=== PATIENT | female | born 1935 | race Caucasian/White ===

== ENCOUNTER 2021-06-09 22:07 | Inpatient (IN) | payer MEDICARE, BC ==
[~2021-06-09] VITALS: Ht 162.6 cm; Wt 91.0 kg
[2021-06-09] MEDS ORDERED: ONDANSETRON PF 4 MG/2 ML VIAL. IVP ONE (22:45)
[2021-06-09] MEDS ORDERED: IOHEXOL 300 MG/ML 75 ML VIAL. IV ONE (22:45)
[2021-06-09] MEDS ORDERED: IV NORMAL SALINE 1,000ML 1,000 ML IV ONE (22:45)
[2021-06-09 23:43] LABS: CALCIUM 8.8 mg/dL (8.5-10.1); CREATININE 1.6 mg/dL (0.6-1.0); GFR 30.4; POTASSIUM 4.1 mmol/L (3.5-5.1)
[2021-06-09] MEDS ORDERED: CONTRAST GIVEN. MC PRN (23:45)
[2021-06-09 23:49] LABS: ALBUMIN 2.9 g/dL (3.4-5.0); ALBUMIN/GLOBULIN RATIO 0.8 (1.0-1.7); MAGNESIUM 1.3 mg/dL (1.8-2.4); TOTAL BILIRUBIN 0.6 mg/dL (0.2-1.0); TOTAL PROTEIN 6.7 g/dL (6.4-8.2)
[2021-06-10] VITALS (7 sets, daily range): BP systolic 116–184; BP diastolic 53–93
[2021-06-10 00:06] LABS: BASO % 0 % (0-3); EOS # 0.1 x10^3/uL (0.0-0.7); EOS % 1 % (0-3); HEMATOCRIT 32.5 % (36.0-47.0); HEMOGLOBIN 10.4 g/dL (12.0-15.5); LYMPH # 0.9 x10^3/uL (1.0-4.8); LYMPH % 7 % (24-48); MEAN CORPUSCULAR HEMOGLOBIN 28 pg (25-35); MEAN CORPUSCULAR HGB CONC 32 g/dL (31-37); MEAN CORPUSCULAR VOLUME 86 fL (79-100); MONO % 8 % (0-9); NEUT # 10.2 x10^3uL (1.8-7.7); NEUT % 84 % (31-73); PLATELET COUNT 244 x10^3/uL (140-400); RED BLOOD COUNT 3.78 x10^6/uL (3.50-5.40); RED CELL DISTRIBUTION WIDTH 17.6 % (11.5-14.5); WHITE BLOOD COUNT 12.3 x10^3/uL (4.0-11.0)
[2021-06-10 00:18] LABS: BILIRUBIN,URINE NEG (NEG); CLARITY,URINE HAZY; COLOR,URINE YELLOW; GLUCOSE,URINE NEG (NEG)
[2021-06-10 00:19] LABS: NITRITE,URINE POS (NEG); RBC,URINE 20-40 /HPF (0-2); UROBILINOGEN,URINE 0.2 mg/dL (0.2 mg/dL); WBC,URINE TNTC /HPF (0-4)
[2021-06-10 00:20] LABS: BACTERIA,URINE MANY /HPF (0-FEW); SQUAMOUS EPITHELIAL CELL,UR FEW /LPF
--- NOTE | 2021-06-10 00:25 | RAD ---
INDICATION: Reason: abdominal pain, N/V/D / Spl. Instructions: / History: . COMPARISON: None. TECHNIQUE: Axial CT images obtained through the abdomen and pelvis without contrast. One or more of the following individualized dose reduction techniques were utilized for this examinat ion: 1. Automated exposure control; 2. Adjustment of the mA and/or kV according to patient size; 3 . Use of iterative reconstruction technique. FINDINGS: Small pleural effusions. Mild patchy opacities at lung bases. Coronary artery calcific atherosclerosis. Enlarged atria. Severe calcific atherosclerosis of abdominal aorta. No intrahepatic bile duct dilation. Gallbladder partially contracted with some high density material within which could be from sludge or stones. No peripancreatic fluid collection. Spleen unremarkable. No left-sided hydronephrosis. There is some air in the urinary bladder. Mild prominence of the right extrarenal pelvis. Definite radiopaque obstructive ureter stone is not s een. Small fat-containing umbilical hernia. Appendix not well seen. There is a couple mildly prominent loops of small bowel but no high-grade transition point to suggest obstruction. Degenerative changes the spine with scoliotic curvature and multilevel central canal and neural cassy inal stenosis. Grade 1 anterolisthesis of L4 on 5. IMPRESSION: * No evidence of bowel obstruction. * Mild prominence of the urinary bladder wall with some air within the lumen of the urinary bladder. Given the mild wall prominence would correlate with symptoms to ensure there is not a pathologic cau se such as mild cystitis. * Severe calcific atherosclerosis. * Small right greater than left pleural effusion with mild adjacent airspace consolidation. Electronically signed by: Aaron Jones MD (06/10/2021 12:22 AM) [id number]
--- NOTE | 2021-06-10 00:44 | PHYS DOC ---
Past History Past Medical History: A-Fib, COPD, Diabetes, Heart Disease, Hypertension, UTI (Ecoli ESBL) Past Surgical History: Hysterectomy Additional Past Surgical Histo: Aortic stent, Left carotid endartectomy, cataract surgery- bilateral, back Smoking: Non-smoker Alcohol Use: None Drug Use: None General Adult EDM: Chief Complaint: NAUSEA/VOMITING/DIARRHEA HPI: HPI: 86-year-old female presents with family with report of generalized weakness and increased confusion which is occurred over the past few days. Patient with history of recent hospital stay in [place] at which time it was found patient to have ESBL E. coli infection. Family reports concern of recurrence. Patient denies any fever. Patient does reports nausea, vomiting, and diarrhea today. Denies trauma. Denies known sick contacts. Denies known exposure to COVID-19. Patient does report receiving vaccinations for COVID-19. Review of Systems: Review of Systems: Constitutional: Denies fever or chills Eyes: Denies redness or eye pain HENT: Denies nasal congestion or sore throat Respiratory: Denies cough or shortness of breath Cardiovascular: Denies chest pain or palpitations GI: Reports abdominal pain, nausea, vomiting, and diarrhea : Denies dysuria or hematuria Musculoskeletal: Denies back pain or joint pain Integument: Denies rash or skin lesions Neurologic: Denies headache, focal weakness or sensory changes; reports confusion and generalized weakness Complete systems were reviewed and found to be within normal limits, except as documented in this note. Current Medications: Current Meds: Current Medications Medications (Trade) Dose Ordered Sig/Aziza Start Time Stop Time Status Last Admin Dose Admin Info (Do NOT chart on this entry -- for MONITORING) 1 each PRN DAILY PRN 06/09/21 23:45 06/10/21 00:14 DC Iohexol (Omnipaque 300 Mg/ml) 75 ml 1X ONCE 06/09/21 22:45 06/09/21 23:32 DC Ondansetron HCl (Zofran) 4 mg 1X ONCE 06/09/21 22:45 06/09/21 23:32 DC Sodium Chloride 1,000 ml @ 1,000 mls/hr 1X ONCE 06/09/21 22:45 06/09/21 23:44 DC 06/09/21 23:00 1,000 MLS/HR Allergies: Allergies: Allergies Coded Allergies Type Severity Reaction Last Updated Verified No Known Drug Allergies 06/09/21 No Physical Exam: PE: Constitutional: Elderly, well nourished, no acute distress, non-toxic appearance HENT: Normocephalic, atraumatic Eyes: Conjunctiva normal, no discharge Neck: Normal range of motion, no tenderness, supple Lungs & Thorax: No respiratory distress, equal chest rise and fall Abdomen: Soft, no tenderness Skin: Warm, dry, no erythema, no rash Extremities: No tenderness, ROM intact, no edema Neurologic: Alert and oriented X 3, no focal deficits noted Psychologic: Affect normal, judgment normal Current Patient Data: Labs: Laboratory Tests Test 06/09/21 22:48 White Blood Count 12.3 x10^3/uL (4.0-11.0) H Red Blood Count 3.78 x10^6/uL (3.50-5.40) Hemoglobin 10.4 g/dL (12.0-15.5) L Hematocrit 32.5 % (36.0-47.0) L Mean Corpuscular Volume 86 fL (79-100) Mean Corpuscular Hemoglobin 28 pg (25-35) Mean Corpuscular Hemoglobin Concent 32 g/dL (31-37) Red Cell Distribution Width 17.6 % (11.5-14.5) H Platelet Count 244 x10^3/uL (140-400) Neutrophils (%) (Auto) 84 % (31-73) H Lymphocytes (%) (Auto) 7 % (24-48) L Monocytes (%) (Auto) 8 % (0-9) Eosinophils (%) (Auto) 1 % (0-3) Basophils (%) (Auto) 0 % (0-3) Neutrophils # (Auto) 10.2 x10^3uL (1.8-7.7) H Lymphocytes # (Auto) 0.9 x10^3/uL (1.0-4.8) L Monocytes # (Auto) 1.0 x10^3/uL (0.0-1.1) Eosinophils # (Auto) 0.1 x10^3/uL (0.0-0.7) Basophils # (Auto) 0.0 x10^3/uL (0.0-0.2) Urine Collection Type Unknown Urine Color Yellow Urine Clarity Hazy Urine pH 6.0 Urine Specific [place] 1.020 Urine Protein 100 mg/dl (NEG-TRACE) Urine Glucose (UA) Neg mg/dL (NEG) Urine Ketones (Stick) Neg mg/dL (NEG) Urine Blood Small (NEG) Urine Nitrite Pos (NEG) Urine Bilirubin Neg (NEG) Urine Urobilinogen Dipstick 0.2 mg/dL (0.2 mg/dL) Urine Leukocyte Esterase Mod (NEG) Urine RBC 20-40 /HPF (0-2) Urine WBC Tntc /HPF (0-4) Urine Squamous Epithelial Cells Few /LPF Urine Bacteria Many /HPF (0-FEW) Sodium Level 140 mmol/L (136-145) Potassium Level 4.1 mmol/L (3.5-5.1) Chloride Level 101 mmol/L (98-107) Carbon Dioxide Level 28 mmol/L (21-32) Anion Gap 11 (6-14) Blood Urea Nitrogen 31 mg/dL (7-20) H Creatinine 1.6 mg/dL (0.6-1.0) H Estimated GFR (Cockcroft-Gault) 30.4 BUN/Creatinine Ratio 19 (6-20) Glucose Level 270 mg/dL (70-99) H Lactic Acid Level 1.7 mmol/L (0.4-2.0) Calcium Level 8.8 mg/dL (8.5-10.1) Magnesium Level 1.3 mg/dL (1.8-2.4) L Total Bilirubin 0.6 mg/dL (0.2-1.0) Aspartate Amino Transferase (AST) 15 U/L (15-37) Alanine Aminotransferase (ALT) 22 U/L (14-59) Alkaline Phosphatase 104 U/L (46-116) Total Protein 6.7 g/dL (6.4-8.2) Albumin 2.9 g/dL (3.4-5.0) L Albumin/Globulin Ratio 0.8 (1.0-1.7) L Vital Signs: Vital Signs Date Time Temp Pulse Resp B/P (MAP) Pulse Ox O2 Delivery O2 Flow Rate FiO2 06/09/21 23:29 99.4 99 20 118/76 90 Room Air EKG: EKG: [] Radiology/Procedures: Radiology/Procedures: PROCEDURE: CT ABDOMEN PELVIS WO CONTRAST INDICATION: Reason: abdominal pain, N/V/D / Spl. Instructions: / History: . COMPARISON: None. TECHNIQUE: Axial CT images obtained through the abdomen and pelvis without contrast. One or more of the following individualized dose reduction techniques were utilized for this examination: 1. Automated exposure control; 2. Adjustment of the mA and/or kV according to patient size; 3. Use of iterative reconstruction technique. FINDINGS: Small pleural effusions. Mild patchy opacities at lung bases. Coronary artery calcific atherosclerosis. Enlarged atria. Severe calcific atherosclerosis of abdominal aorta. No intrahepatic bile duct dilation. Gallbladder partially contracted with some high density material within which could be from sludge or stones. No peripancreatic fluid collection. Spleen unremarkable. No left-sided hydronephrosis. There is some air in the urinary bladder. Mild prominence of the right extrarenal pelvis. Definite radiopaque obstructive ureter stone is not seen. Small fat-containing umbilical hernia. Appendix not well seen. There is a couple mildly prominent loops of small bowel but no high-grade transition point to suggest obstruction. Degenerative changes the spine with scoliotic curvature and multilevel central canal and neural foraminal stenosis. Grade 1 anterolisthesis of L4 on 5. IMPRESSION: * No evidence of bowel obstruction. * Mild prominence of the urinary bladder wall with some air within the lumen of the urinary bladder. Given the mild wall prominence would correlate with symptoms to ensure there is not a pathologic cause such as mild cystitis. * Severe calcific atherosclerosis. * Small right greater than left pleural effusion with mild adjacent airspace consolidation. Electronically signed by: Aaron Jones MD (06/10/2021 12:22 AM) DESKTOP- [id number] Heart Score: C/O Chest Pain: N/A Course & Med Decision Making: Course & Med Decision Making Pertinent Labs and Imaging studies reviewed. (See chart for details) Patient presents with her daughter with report of some generalized weakness with concern for possible recurrence of UTI. Patient with history of recent admission for E. coli ESBL at outside facility. Patient's family report symptoms appear similar. Patient is complaining of some abdominal discomfort. Afebrile. Labs obtained and posted to chart. UA with signs of infection. Hypomagnesemia addressed. CT abdomen/pelvis without acute finding. Empiric antibiotic initiated presuming recurrence of ESBL E. coli.. Patient requiring admission for further evaluation and treatment. Discussed with Dr. Chapa (hospitalist) who is in agreement with admission. Discussed findings and plan with patient, who acknowledges understanding and agreement. Dragjosh Disclaimer: Dragjosh Disclaimer: This electronic medical record was generated, in whole or in part, using a voice recognition dictation system. Departure Departure: Impression: Primary Impression: Complicated UTI (urinary tract infection) Additional Impressions: Nausea vomiting and diarrhea History of ESBL E. coli infection Hypomagnesemia Disposition: 09 ADMITTED INPATIENT Admitting Physician: Kuldeep Chapa Condition: STABLE Referrals: ALEXANDER NGUYEN (PCP) MAGNUS JAMES DO Jun 10, 2021 00:44
[2021-06-10] MEDS ORDERED: ERTAPENEM 1 GM in IV NORMAL SALINE 50ML 50 ML IV ONE (00:45)
[2021-06-10] MEDS ORDERED: DEXTROSE 50% 25 GM / 50ML DISP.SYRIN. IV PRN (01:15)
[2021-06-10] MEDS ORDERED: ONDANSETRON PF 4 MG/2 ML VIAL. IVP PRN (01:15)
[2021-06-10] MEDS ORDERED: MAGNESIUM SULFATE 2GM 50 ML IV ONE (01:30)
[2021-06-10] MEDS ORDERED: MEROPENEM 500 MG VIAL IV ONE (01:43)
[2021-06-10] MEDS ORDERED: IV NORMAL SALINE 50ML 50 ML ONE (01:43)
[2021-06-10] MEDS: MEROPENEM 500 MG in IV NORMAL SALINE 50ML 50 ML IV SCH ×3 (02:30→17:07)
[2021-06-10] MEDS: IV NORMAL SALINE 1,000ML 1,000 ML IV SCH ×3 (04:27→17:07)
[2021-06-10] MEDS ORDERED: POTA10TA5 PO (05:11)
[2021-06-10] MEDS ORDERED: FERR325T14 PO (05:11)
[2021-06-10] MEDS ORDERED: GABA-585 PO (05:11)
[2021-06-10] MEDS ORDERED: AMIO200T6 PO (05:11)
[2021-06-10] MEDS ORDERED: ATOR20TA58 PO (05:11)
[2021-06-10] MEDS ORDERED: APIX2.5T PO (05:11)
[2021-06-10] MEDS ORDERED: CLOP75TA PO (05:11)
[2021-06-10] MEDS ORDERED: CALC0.2530 PO (05:11)
[2021-06-10] MEDS ORDERED: HYDR-2145 PO (05:11)
[2021-06-10] MEDS ORDERED: METO-247 PO (05:11)
[2021-06-10] MEDS ORDERED: INSU100V37 SQ (05:11)
[2021-06-10] MEDS ORDERED: OXYB15TA18 PO (05:11)
[2021-06-10] MEDS ORDERED: PANT40TA6 PO (05:11)
[2021-06-10] MEDS ORDERED: ALLO100T PO (05:11)
[2021-06-10] MEDS ORDERED: LEVO50CA3 PO (05:11)
--- NOTE | 2021-06-10 05:39 | NUR ---
The patient, BRENDON PELAEZ, 86 y/o, F admitted by BETZAIDA HELTON MD, was given written information regarding hospital policies, unit procedures and contact persons. Valuables were checked and vital signs obtained. PT accompanied by daughter, Brigitte, who provided additional information as PT was very tired and falling asleep. Reviewed with PT and daughter her PMH, PSH, SH, FH and medications. PT oriented to unit.
--- NOTE | 2021-06-10 06:28 | RAD ---
INDICATION: Reason: cough / Spl. Instructions: / History: COMPARISON: None. FINDINGS: Single view of chest obtained. Enlarged cardiac silhouette with calcific atherosclerosis. Mild haziness at the lung bases. Mild interstitial opacities. IMPRESSION: * Mild haziness at lung bases which can be seen with atelectasis or infiltrate. There is also some m ild interstitial opacities bilaterally which can be seen with mild pulmonary vascular congestion or m ild interstitial infiltrate. * Calcific atherosclerosis. Electronically signed by: Aaron Jones MD (06/10/2021 6:26 AM) [id number]
[2021-06-10] MEDS: LACTOBACILLUS RHAMNOSUS GG 1 CAPSULE. PO SCH ×2 (08:40→21:33)
[2021-06-10] MEDS: INSULIN LISPRO 300 UNITS/3 ML VIAL. SQ SCH ×3 (08:46→17:09)
--- NOTE | 2021-06-10 12:17 | NUR ---
NURSING NOTE PT UNABLE TO VOID. BLADDER SCAN REVEALED LESS THAN 167 MLS. WILL CONTINUE TO MONITOR. HARSHIL VALENTIN.
--- NOTE | 2021-06-10 15:55 | NUR ---
NURSING NOTE BLADDER SCAN RECHECK 229. PT ABLE TO VOID 80 MLS. WILL CONTINUE TO MONITOR. HARSHIL VALENTIN.
--- NOTE | 2021-06-10 17:37 | NUR ---
Nursing Note Consult Cardiology called for consult. this nurse spoke with nguyễn
--- NOTE | 2021-06-10 18:29 | NUR ---
Nursing Note Dr. Pimentel spoke with pt, daughter, and son (over the phone). Pt received a shower and will continue with antibiotic therapy. Daughter present all day through visiting hours (10-6).
--- NOTE | 2021-06-10 19:30 | HP ---
ADMIT DATE: 06/10/2021 HISTORY OF PRESENT ILLNESS: The patient is an 86-year-old female patient, a resident at [facility], who was brought by her daughter to the Emergency Room with a complaint not generally feeling well, more confused, weak. Her blood sugar was elevated and she started vomiting. Symptoms very similar to her recent urinary tract infection for which she was seen at [place] and from there she was admitted to [facility] where she was eventually diagnosed with ESBL E. coli that was resistant to multiple antibiotics and was treated with meropenem. She was living at [facility] and was moved here recently to be near her family. She was evaluated in the Emergency Room. Her lab work showed she has leukocytosis with a white cell count of 12,300. Her chemistry showed her serum creatinine was 1.6. She has also hypomagnesemia with a serum magnesium only 1.3. Her urinalysis showed that the urine was hazy with a pH of 6, specific gravity of 1.020. There is small amount of protein. The urine was negative for glucose, ketones, small amount of blood, positive nitrite, has moderate amount of leukocyte esterase, 20-40 rbc's, too numerous to count wbc's and many bacteria and was admitted with the UTI. She has a history of ESBL E. coli infection, has hypomagnesemia and chronic kidney disease. PAST MEDICAL HISTORY: Significant for recurrent UTIs, hypertension, type 2 diabetes mellitus, hyperlipidemia, abdominal aortic aneurysm, atrial fibrillation, chronic kidney disease and hypothyroidism. PAST SURGICAL HISTORY: Significant for aortic stent placement, left carotid endarterectomy, bilateral cataract extraction, total abdominal hysterectomy, bilateral salpingo-oophorectomy, has had a screening colonoscopy and laminectomy. ALLERGIES: She has no known drug allergies. MEDICATIONS: She is currently on the following medications: She is on ferrous sulfate 325 mg once a day, apixaban 2.5 mg twice a day, Plavix 75 mg once a day, amiodarone 200 mg once a day, atorvastatin calcium 20 mg once a day, metoprolol succinate 100 mg once a day, gabapentin 100 mg twice a day. She is on potassium chloride 10 mEq 1 twice a day, hydrochlorothiazide 25 mg once a day, Protonix 40 mg once a day. She is on Tresiba 6 units twice a day, levothyroxine 50 mcg once a day, oxybutynin chloride 15 mg twice a day and calcitriol 0.25 mcg once a day, allopurinol 100 mg once a day. REVIEW OF SYSTEMS: The patient denied any blurring of vision. She has bilateral cataract extraction, but denied any glaucoma or macular degeneration. Denied any earache, tinnitus or sensorineural deafness. Denied any nosebleed, stuffy nose or postnasal drip. Denied any sore throat, sore tongue, toothache, hoarseness of voice or difficulty swallowing. Did have some nausea and vomiting. Denied any diarrhea or constipation. Denied any hematemesis, melena or hematochezia. Denied any dysuria, frequency or hematuria. Denied any chest pain, shortness of breath except on exertion. Denied any orthopnea or paroxysmal nocturnal dyspnea. Denied any cough, phlegm or hemoptysis. PHYSICAL EXAMINATION: GENERAL: On arrival to the Emergency Room, the patient looked somewhat pale, but not jaundice, cyanosed, no lymphadenopathy, no thyromegaly, no jugular venous distention. Mild bilateral lower limb edema. VITAL SIGNS: Her heart rate was 90, blood pressure is 184/93, temperature was 98.1, respiratory rate 20, and oxygen saturation was 94% on 2 liters of oxygen. HEAD, EYES, EARS, NOSE, AND THROAT: Normocephalic, atraumatic. NECK: Supple. HEART: Showed normal first and second heart sounds, no gallop, rub or murmur. CHEST: Clear to auscultation, no crepitation or rhonchi. ABDOMEN: Distended, soft, nontender. NEUROLOGIC: She is awake, alert, responding appropriately. Cranial nerves intact. She moves extremities without difficulty. She ambulates with a walker. LABORATORY DATA: Her lab work on arrival showed a white cell count 12,300, hemoglobin 10.4, hematocrit 32.5, MCV 86 and platelet count 244,000. Her serum sodium was 140, potassium 4.1, chloride 101, bicarbonate 28, anion gap of 11, BUN 31, creatinine 1.6. Estimated GFR was 30 mL per minute. Her glucose was 170. Lactic acid is 1.7, calcium was 8.8, magnesium was 1.3. Total bilirubin, AST, ALT, alkaline phosphatase were normal. Total protein 6.7, albumin was 2.9. Her urinalysis showed the urine was yellow, hazy with a pH of 6, specific gravity of 1.020. There was moderate amount of protein. The urine was negative for glucose and ketones, small amount of blood, positive for nitrite, moderate amount of leukocyte esterase, 20-40 rbc's and too numerous to count wbc's and many bacteria. She did have a chest x-ray which showed that the patient has mild haziness at the lung bases, which can be seen with atelectasis or infiltrate. There is also some mild interstitial opacities bilaterally, which can be seen with mild pulmonary vascular congestion, mild interstitial infiltrate. She has calcific atherosclerosis. CT scan of the abdomen and pelvis without contrast showed that the patient has no evidence of bowel obstruction, mild prominence of the urinary bladder wall with some air within the lumen of the urinary bladder, given the mild wall prominence which correlate with symptoms to ensure there is not a pathological cause such as mild cystitis, severe calcific atherosclerosis, small right greater than left pleural effusion with mild adjacent airspace consolidation. ASSESSMENT: 1. The patient was admitted with a complicated urinary tract infection as well as hypomagnesemia. Her most recent urinary tract infection treated at [place] showed a growth of extended spectrum beta-lactamase Escherichia coli. She has multiple other medical problems including: A. Hypertension. B. Type 2 diabetes mellitus. C. Hyperlipidemia. D. Atrial fibrillation. E. Chronic kidney disease. F. Hypothyroidism. PLAN: My plan is to continue with all her current medication. I will consult our boiler house inspector. Her heart rate seems to be well controlled and I will repeat all her lab work again and she might need to be on IV Lasix as her oxygen is borderline around 89-[address] DANITA [address]: Jeremiah TID: [id number]
[2021-06-10] MEDS ORDERED: ATORVASTATIN CALCIUM 20 MG TABLET PO SCH (21:00)
[2021-06-10] MEDS: MAGNESIUM OXIDE 400 MG TABLET PO SCH (21:00)
[2021-06-10] MEDS: OXYBUTYNIN CHLORIDE 5 MG TABLET PO SCH (21:33)
[2021-06-10] MEDS: GABAPENTIN 100 MG CAPSULE. PO SCH (21:33)
[2021-06-10] MEDS: CLOPIDOGREL BISULFATE 75 MG TABLET PO SCH (21:33)
[2021-06-10] MEDS: APIXABAN 2.5 MG TABLET PO SCH (21:34)
[2021-06-10] MEDS: POTASSIUM CHLORIDE 10 MEQ TABLET.ER. PO SCH (21:34)
[2021-06-10] MEDS: INSULIN GLARGINE SYRINGE. SQ SCH (21:41)
[2021-06-11] MEDS: MEROPENEM 500 MG in IV NORMAL SALINE 50ML 50 ML IV SCH ×3 (01:00→17:50)
--- NOTE | 2021-06-11 02:26 | NUR ---
Called Dr. Pimentel about patient Heart rate sustaining at [address] Pimentel recommended 250mcg of Digoxin IV. Order added and dose administered.
[2021-06-11] MEDS ORDERED: DIGOXIN IV 500 MCG/2 ML AMPUL. IV ONE (03:00)
[2021-06-11 06:02] VITALS: BP 142/72
[2021-06-11] MEDS: LEVOTHYROXINE 50 MCG TABLET PO SCH (06:24)
[2021-06-11 07:14] LABS: HEMATOCRIT 31.7 % (36.0-47.0); HEMOGLOBIN 9.9 g/dL (12.0-15.5); RED BLOOD COUNT 3.57 x10^6/uL (3.50-5.40); RED CELL DISTRIBUTION WIDTH 18.4 % (11.5-14.5); WHITE BLOOD COUNT 10.7 x10^3/uL (4.0-11.0)
[2021-06-11 07:37] LABS: ALBUMIN 2.6 g/dL (3.4-5.0); ALBUMIN/GLOBULIN RATIO 0.7 (1.0-1.7); CALCIUM 8.2 mg/dL (8.5-10.1); CREATININE 1.8 mg/dL (0.6-1.0); GFR 26.6; POTASSIUM 4.8 mmol/L (3.5-5.1); TOTAL PROTEIN 6.4 g/dL (6.4-8.2)
--- NOTE | 2021-06-11 08:28 | PDOC2 ---
CARDIAC CONSULT DATE OF CONSULT DOS: DATE: 06/11/21 TIME: 08:21 REASON FOR CONSULT Reason for Consult AFIB, CHF REFERRING PHYSICIAN Referring Physician Dr. Pimentel SOURCE Source: Chart review, Patient HPI History of Present Illness This is an 86 yo female who presented secondary to altered mental status, weakness, nausea/vomiting, and elevated blood sugar. Daughter was concerned she has another UTI and symptoms were similar with previous UTI. UA upon arrival + for UTI. Has a history of AFIB. Went into RVR overnight, which prompted this consult. Patient normally on metoprolol for rate control, but did not received this yesterday. She denies any chest pain, palpitations, dizziness, diaphoresis, or SOA. [employer] in [employer] [place] in [place], [place]. Recently moved here to be closer to family. Has appointment next week to establish care with daughters gate agent. PAST MEDICAL HISTORY Cardiovascular: AFIB, CHF, HTN, hyperipidemia, Other (carotid arterial disease, aortic aneurysm ) Pulmonary: COPD, Other (BHARATI) CENTRAL NERVOUS SYSTEM: Periperal neuropathy GI: GERD Heme/Onc: Anemia NOS Psych: Anxiety Musculoskeletal: Osteoarthritis Rheumatologic: Gout Renal/: Chronic renal insuff, UTI Endocrine: Hypothyroidism PAST SURGICAL HISTORY Past Surgical History Significant for aortic stent placement, left carotid endarterectomy, bilateral cataract extraction, hysterectomy, and laminectomy. FAMILY HISTORY Family History: Heart Disease, Hypertension SOCIAL HISTORY Smoke: No ALCOHOL: none Drugs: None Lives: Residential CURRENT MEDICATIONS Current Medications Current Medications Sodium Chloride 1,000 ml @ 1,000 mls/hr 1X ONCE IV Last administered on 06/09/21at 23:00; Start 06/09/21 at 22:45; Stop 06/09/21 at 23:44; Status DC Ondansetron HCl (Zofran) 4 mg 1X ONCE IVP ; Start 06/09/21 at 22:45; Stop 06/09/21 at 23:32; Status DC Iohexol (Omnipaque 300 Mg/ml) 75 ml 1X ONCE IV ; Start 06/09/21 at 22:45; Stop 06/09/21 at 23:32; Status DC Info (Do NOT chart on this entry -- for MONITORING) 1 each PRN DAILY PRN MC SEE COMMENTS; Start 06/09/21 at 23:45; Stop 06/10/21 at 00:14; Status DC Ertapenem 1 gm/ Sodium Chloride 50 ml @ 100 mls/hr 1X ONCE IV ; Start 06/10/21 at 00:45; Stop 06/10/21 at 01:14; Status UNV Meropenem 500 mg/ Sodium Chloride 50 ml @ 100 mls/hr Q8HRS IV Last administere d on 06/10/21at 08:41; Start 06/10/21 at 01:00; Stop 06/10/21 at 14:20; Status DC Lorazepam (Ativan Inj) 0.5 mg 1X ONCE IVP Last administered on 06/10/21at 01:14; Start 06/10/21 at 01:00; Stop 06/10/21 at 01:01; Status DC Ondansetron HCl (Zofran) 4 mg PRN Q4HRS PRN IVP NAUSEA/VOMITING Last administered on 06/10/21at 05:50; Start 06/10/21 at 01:15; Stop 06/11/21 at 01:14; Status DC Sodium Chloride 1,000 ml @ 100 mls/hr Q10H IV Last administered on 06/10/21at 17:07; Start 06/10/21 at 01:15; Stop 06/11/21 at 01:14; Status DC Insulin Human Lispro (HumaLOG) 0-5 UNITS TIDWMEALS SQ Last administered on 06/10/21at 17:09; Start 06/10/21 at 08:00 Dextrose (Dextrose 50%-Water Syringe) 12.5 gm PRN Q15MIN PRN IV SEE COMMENTS; Start 06/10/21 at 01:15 Magnesium Sulfate 50 ml @ 25 mls/hr 1X ONCE IV Last administered on 06/10/21at 04:27; Start 06/10/21 at 01:30; Stop 06/10/21 at 03:29; Status DC Sodium Chloride 50 ml @ As Directed STK-MED ONCE .ROUTE ; Start 06/10/21 at 01:43; Stop 06/10/21 at 01:43; Status DC Meropenem (Merrem) 500 mg STK-MED ONCE IV ; Start 06/10/21 at 01:43; Stop 06/10/21 at 01:43; Status DC Lactobacillus Rhamnosus (Culturelle) 1 cap BID PO Last administered on 06/10/21at 21:33; Start 06/10/21 at 09:00 Meropenem 500 mg/ Sodium Chloride 50 ml @ 100 mls/hr Q8H IV Last administered on 06/11/21at 01:00; Start 06/10/21 at 17:00 Magnesium Oxide (Magnesium Oxide) 400 mg BID PO Last administered on 06/10/21at 21:00; Start 06/10/21 at 21:00 Allopurinol (Zyloprim) 100 mg DAILY PO ; Start 06/11/21 at 09:00 Amiodarone HCl (Cordarone) 200 mg DAILY PO ; Start 06/11/21 at 09:00 Apixaban (Eliquis) 2.5 mg BID PO Last administered on 06/10/21 21:34; Start 06/10/21 at 21:00 Atorvastatin Calcium (Lipitor) 20 mg QHS PO Last administered on 06/10/21at 21:33; Start 06/10/21 at 21:00 Calcitriol (Rocaltrol) 0.25 mcg DAILY PO ; Start 06/11/21 at 09:00 Clopidogrel Bisulfate (Plavix) 75 mg HS PO Last administered on 06/10/21at 21:33; Start 06/10/21 at 21:00 Ferrous Sulfate (Feosol) 325 mg DAILY PO ; Start 06/11/21 at 09:00 Gabapentin (Neurontin) 100 mg BID PO Last administered on 06/10/21at 21:33; Start 06/10/21 at 21:00 Hydrochlorothiazide (Hydrodiuril) 25 mg DAILY PO ; Start 06/11/21 at 09:00 Insulin Glargine (Lantus Syringe) 6 unit BID SQ Last administered on 06/10/21at 21:41; Start 06/10/21 at 21:00 Levothyroxine Sodium (Synthroid) 50 mcg DAILY06 PO Last administered on 06/11/21at 06:24; Start 06/11/21 at 06:00 Metoprolol Succinate (Toprol Xl) 100 mg DAILY PO ; Start 06/11/21 at 09:00 Oxybutynin Chloride (Ditropan) 5 mg QID PO Last administered on 06/10/21 21:33; Start 06/10/21 at 21:00 Potassium Chloride (Klor-Con) 10 meq BID PO Last administered on 7/14/21at 21:34; Start 06/10/21 at 21:00 Digoxin (Lanoxin) 250 mcg 1X ONCE IV Last administered on 06/11/21at 03:00; Start 06/11/21 at 03:00; Stop 06/11/21 at 03:01; Status DC Active Scripts Active Reported Tresiba (Insulin Degludec) 100 Unit/1 Ml Vial 6 Unit SQ BID Klor-Con 10 (Potassium Chloride) 10 Meq Tablet.er 1 Tab PO BID 30 Days Pantoprazole Sodium 40 Mg Tablet.dr 1 Tab PO DAILY Oxybutynin Chloride Er (Oxybutynin Chloride) 15 Mg Tab.er.24 1 Tab PO BID Metoprolol Succinate ( Xl ) (Metoprolol Succinate) 100 Mg Tab.er.24h 1 Tab PO DAILY Levothyroxine (Levothyroxine Sodium) 50 Mcg Capsule 50 Mcg PO DAILY06 Hydrochlorothiazide Tablet (Hydrochlorothiazide) 25 Mg Tablet 25 Mg PO DAILY Gabapentin (Gabapentin) 100 Mg Capsule 100 Mg PO BID Ferrous Sulfate 325 Mg Tablet 1 Tab PO DAILY Eliquis (Apixaban) 2.5 Mg Tablet 2.5 Mg PO BID Clopidogrel (Clopidogrel Bisulfate) 75 Mg Tablet 1 Tab PO HS Calcitriol 0.25 Mcg Capsule 1 Cap PO DAILY Atorvastatin Calcium 20 Mg Tablet 20 Mg PO QHS Amiodarone Hcl 200 Mg Tablet 1 Tab PO DAILY Allopurinol 100 Mg Tablet 1 Tab PO DAILY ALLERGIES Allergies: Coded Allergies: No Known Drug Allergies (Unverified , 06/09/21) ROS Review of Systems 14 point ROS conducted with pertinent positives noted above in HPI PHYSICAL EXAM General: Alert, Oriented X3, Cooperative, No acute distress HEENT: Atraumatic Lungs: Clear to auscultation Heart: Other Abdomen: Soft, Other (obese ) Extremities: No edema, Normal pulses Skin: No breakdown Neuro: Normal speech, Sensation intact Psych/Mental Status: Mental status NL, Mood NL MUSCULOSKELETAL: Osteoarthritic changes both hands VITALS Vital Signs Vital Signs Date Time Temp Pulse Resp B/P (MAP) Pulse Ox O2 Delivery O2 Flow Rate FiO2 06/11/21 06:02 98.5 130 18 142/72 (95) 90 Room Air 06/10/21 14:59 1.0 LABS LABS Laboratory Tests Test 06/09/21 22:48 06/10/21 07:41 06/10/21 11:28 06/10/21 16:28 White Blood Count 12.3 x10^3/uL (4.0-11.0) Red Blood Count 3.78 x10^6/uL (3.50-5.40) Hemoglobin 10.4 g/dL (12.0-15.5) Hematocrit 32.5 % (36.0-47.0) Mean Corpuscular Volume 86 fL (79-100) Mean Corpuscular Hemoglobin 28 pg (25-35) Mean Corpuscular Hemoglobin Concent 32 g/dL (31-37) Red Cell Distribution Width 17.6 % (11.5-14.5) Platelet Count 244 x10^3/uL (140-400) Neutrophils (%) (Auto) 84 % (31-73) Lymphocytes (%) (Auto) 7 % (24-48) Monocytes (%) (Auto) 8 % (0-9) Eosinophils (%) (Auto) 1 % (0-3) Basophils (%) (Auto) 0 % (0-3) Neutrophils # (Auto) 10.2 x10^3uL (1.8-7.7) Lymphocytes # (Auto) 0.9 x10^3/uL (1.0-4.8) Monocytes # (Auto) 1.0 x10^3/uL (0.0-1.1) Eosinophils # (Auto) 0.1 x10^3/uL (0.0-0.7) Basophils # (Auto) 0.0 x10^3/uL (0.0-0.2) Urine Collection Type Unknown Urine Color Yellow Urine Clarity Hazy Urine pH 6.0 Urine Specific [place] 1.020 Urine Protein 100 mg/dl (NEG-TRACE) Urine Glucose (UA) Neg mg/dL (NEG) Urine Ketones (Stick) Neg mg/dL (NEG) Urine Blood Small (NEG) Urine Nitrite Pos (NEG) Urine Bilirubin Neg (NEG) Urine Urobilinogen Dipstick 0.2 mg/dL (0.2 mg/dL) Urine Leukocyte Esterase Mod (NEG) Urine RBC 20-40 /HPF (0-2) Urine WBC Tntc /HPF (0-4) Urine Squamous Epithelial Cells Few /LPF Urine Bacteria Many /HPF (0-FEW) Sodium Level 140 mmol/L (136-145) Potassium Level 4.1 mmol/L (3.5-5.1) Chloride Level 101 mmol/L (98-107) Carbon Dioxide Level 28 mmol/L (21-32) Anion Gap 11 (6-14) Blood Urea Nitrogen 31 mg/dL (7-20) Creatinine 1.6 mg/dL (0.6-1.0) Estimated GFR (Cockcroft-Gault) 30.4 BUN/Creatinine Ratio 19 (6-20) Glucose Level 270 mg/dL (70-99) Lactic Acid Level 1.7 mmol/L (0.4-2.0) Calcium Level 8.8 mg/dL (8.5-10.1) Magnesium Level 1.3 mg/dL (1.8-2.4) Total Bilirubin 0.6 mg/dL (0.2-1.0) Aspartate Amino Transf (AST/SGOT) 15 U/L (15-37) Alanine Aminotransferase (ALT/SGPT) 22 U/L (14-59) Alkaline Phosphatase 104 U/L (46-116) Total Protein 6.7 g/dL (6.4-8.2) Albumin 2.9 g/dL (3.4-5.0) Albumin/Globulin Ratio 0.8 (1.0-1.7) Glucose (Fingerstick) 232 mg/dL (70-99) 198 mg/dL (70-99) 210 mg/dL (70-99) Test 06/10/21 20:10 06/11/21 06:58 06/11/21 07:44 Glucose (Fingerstick) 181 mg/dL (70-99) 225 mg/dL (70-99) White Blood Count 10.7 x10^3/uL (4.0-11.0) Red Blood Count 3.57 x10^6/uL (3.50-5.40) Hemoglobin 9.9 g/dL (12.0-15.5) Hematocrit 31.7 % (36.0-47.0) Mean Corpuscular Volume 89 fL (79-100) Mean Corpuscular Hemoglobin 28 pg (25-35) Mean Corpuscular Hemoglobin Concent 31 g/dL (31-37) Red Cell Distribution Width 18.4 % (11.5-14.5) Platelet Count 231 x10^3/uL (140-400) Sodium Level 139 mmol/L (136-145) Potassium Level 4.8 mmol/L (3.5-5.1) Chloride Level 102 mmol/L (98-107) Carbon Dioxide Level 29 mmol/L (21-32) Anion Gap 8 (6-14) Blood Urea Nitrogen 35 mg/dL (7-20) Creatinine 1.8 mg/dL (0.6-1.0) Estimated GFR (Cockcroft-Gault) 26.6 BUN/Creatinine Ratio 19 (6-20) Glucose Level 229 mg/dL (70-99) Calcium Level 8.2 mg/dL (8.5-10.1) Magnesium Level 2.1 mg/dL (1.8-2.4) Total Bilirubin 1.0 mg/dL (0.2-1.0) Aspartate Amino Transf (AST/SGOT) 364 U/L (15-37) Alanine Aminotransferase (ALT/SGPT) 283 U/L (14-59) Alkaline Phosphatase 356 U/L (46-116) PT-Pkw-Y-Type Natriuretic Peptide 8444 pg/mL (0-449) Total Protein 6.4 g/dL (6.4-8.2) Albumin 2.6 g/dL (3.4-5.0) Albumin/Globulin Ratio 0.7 (1.0-1.7) ASSESSMENT/PLAN Assessment/Plan 1. Recurrent, complicated UTI 2. AFIB; suspect paroxysmal as patient is on Amiodarone therapy. in AFIB RVR overnight as she missed dose of metoprolol yesterday. Rate now controlled, but remains in AFIB 3. Acute on chronic probably diastolic CHF 4. Hypertension; controlled 5. Hyperlipidemia; statin 6. Diabetes, II 7. THELMA on CKD 8. Hypothyroidism 9. Transaminitis Recommendations Resume metoprolol for rate control Continue Amiodarone for now Eliquis for stroke prophylaxis Will give Lasix IV x1 Awaiting OSH records from [place]. Continue secondary prevention Can hold statin with elevated LFTs Ongoing antibiotic therapy for UTI Supportive care ELEANOR HUDSON APRN Jun 11, 2021 08:28
[2021-06-11] MEDS: MAGNESIUM OXIDE 400 MG TABLET PO SCH ×2 (09:00→21:00)
[2021-06-11] MEDS: INSULIN LISPRO 300 UNITS/3 ML VIAL. SQ SCH ×3 (09:53→17:00)
[2021-06-11] MEDS: hydroCHLOROthiazide 25 MG TABLET. PO SCH (09:53)
[2021-06-11] MEDS: AMIODARONE HCL 200 MG TABLET. PO SCH (09:54)
[2021-06-11] MEDS: LACTOBACILLUS RHAMNOSUS GG 1 CAPSULE. PO SCH ×2 (09:54→21:43)
[2021-06-11] MEDS: POTASSIUM CHLORIDE 10 MEQ TABLET.ER. PO SCH ×2 (09:54→21:44)
[2021-06-11] MEDS: OXYBUTYNIN CHLORIDE 5 MG TABLET PO SCH ×4 (09:54→21:44)
[2021-06-11] MEDS: FERROUS SULFATE 325 MG TABLET. PO SCH (09:54)
[2021-06-11] MEDS: APIXABAN 2.5 MG TABLET PO SCH ×2 (09:54→21:44)
[2021-06-11] MEDS: ALLOPURINOL 100 MG TABLET. PO SCH (09:54)
[2021-06-11] MEDS: GABAPENTIN 100 MG CAPSULE. PO SCH ×2 (09:54→21:44)
[2021-06-11] MEDS: CALCITRIOL 0.25 MCG CAPSULE PO SCH (09:56)
[2021-06-11] MEDS: METOPROLOL SUCC 24HR ER 50 MG TAB.ER.24H. PO SCH (09:57)
[2021-06-11] MEDS ORDERED: FUROSEMIDE 20 MG/2 ML VIAL IVP ONE (10:00)
[2021-06-11] MEDS: INSULIN GLARGINE SYRINGE. SQ SCH ×2 (10:00→21:00)
[2021-06-11] MEDS ORDERED: FUROSEMIDE 40 MG/4 ML VIAL IVP ONE (10:10)
[2021-06-11 12:00] VITALS: BP 113/72
[2021-06-11 15:17] VITALS: BP 135/84
[2021-06-11 19:51] VITALS: BP 124/53
[2021-06-11] MEDS: CLOPIDOGREL BISULFATE 75 MG TABLET PO SCH (21:44)
[2021-06-11 23:49] VITALS: BP 132/63
[2021-06-12] MEDS: MEROPENEM 500 MG in IV NORMAL SALINE 50ML 50 ML IV SCH ×3 (01:00→17:37)
--- NOTE | 2021-06-12 01:11 | PN ---
DATE: 06/11/2021 SUBJECTIVE: The patient is sitting in her chair snoozing after eating her lunch. On questioning her, she denied any complaint. Nursing staff did not voice any concern except that the patient went into atrial fibrillation with rapid ventricular response for which she was given digoxin 250 mcg IV once. When I saw her this afternoon, her heart rate was much better controlled. PHYSICAL EXAMINATION: GENERAL: When I examined her, she was pale. No jaundice, cyanosis or thyromegaly. No jugular venous distention. No lower limb edema. VITAL SIGNS: Her heart rate was 80, blood pressure was 113/72, temperature was 98.9, respiratory rate was 20 and oxygen saturation was 91% on 1 L of oxygen. HEAD, EYES, EARS, NOSE, AND THROAT: Normocephalic, atraumatic. NECK: Supple. HEART: Showed normal first and second heart sounds, no gallop, rub or murmur. CHEST: Showed central trachea, equal bilateral expansion, air entry with bilateral basal crepitation. I could not appreciate any rhonchi. ABDOMEN: Distended, soft, nontender. NEUROLOGIC: She was sleepy, but arousable. All cranial nerves intact. She moves extremities without difficulty. EXTREMITIES: Examination of the extremities showed no clubbing, cyanosis, but mild bilateral lower extremity edema. Her intake and output were incompletely recorded. LABORATORY DATA: Her lab work this morning showed a white cell count of 10,700, hemoglobin 10, hematocrit 32, MCV 89 and platelet count 231,000. Her chemistry showed that her serum sodium was 139, potassium 4.8, chloride 102, bicarbonate 29, anion gap of 8, BUN 35, creatinine 1.8. Estimated GFR was 27 mL per minute. Her glucose was __, calcium was 8.2, magnesium was 2.1. Total bilirubin is normal; however, AST, ALT, alkaline phosphatase dramatically risen and her beta natriuretic peptide was 8444. Her total protein was 6.4, albumin was 2.6. Urinalysis showed too numerous to count wbc's and her urine culture showed growth of more than 100,000 colony forming units per mL of gram-negative rods, identification and sensitivities still pending at the time of this dictation. Her blood cultures have shown no growth so far. ASSESSMENT: 1. Complicated urinary tract infection. Her urine so far has grown more than 100,000 colony forming unit per mL gram-negative rods, identification and sensitivities still pending. 2. Hypomagnesemia, improved. Her serum magnesium was 2.1. 3. Her most recent urinary tract infection, treated at [facility] showed growth of extended spectrum beta lactamase Escherichia coli was resistant to multiple antibiotics. 4. The patient has multiple other medical problems including:. A. Atrial fibrillation, apparently patient has an episode of paroxysmal atrial fibrillation with rapid ventricular response, treated with digoxin. B. Hypertension. C. Hyperlipidemia. D. Type 2 diabetes mellitus. E. Chronic kidney disease. F. Hypothyroidism. G. The patient has a dramatic worsening of her liver enzymes, although total bilirubin was normal. She was given 1 injection of IV Lasix. She probably has acute on chronic diastolic congestive heart failure. She continued to have bilateral basal crepitation. PLAN: To continue with IV meropenem. Continue with all other medication. We held her Lipitor as she has dramatic worsening of her liver enzymes and her BNP was high at more than 8000. Once we have the identification and sensitivity, we will arrange for her to be able to switch her to something oral. I will repeat all her lab work today and tomorrow. LEXI DE LOS SANTOS: Jeremiah TID: [id number]
[2021-06-12 06:14] VITALS: BP 134/66
[2021-06-12] MEDS: LEVOTHYROXINE 50 MCG TABLET PO SCH (06:35)
[2021-06-12 06:58] LABS: HEMOGLOBIN 9.8 g/dL (12.0-15.5); RED BLOOD COUNT 3.55 x10^6/uL (3.50-5.40); WHITE BLOOD COUNT 8.4 x10^3/uL (4.0-11.0)
[2021-06-12 07:14] LABS: ALBUMIN 2.4 g/dL (3.4-5.0); ALBUMIN/GLOBULIN RATIO 0.6 (1.0-1.7); CALCIUM 8.2 mg/dL (8.5-10.1); CREATININE 1.8 mg/dL (0.6-1.0); GFR 26.6; POTASSIUM 3.9 mmol/L (3.5-5.1); TOTAL BILIRUBIN 0.5 mg/dL (0.2-1.0); TOTAL PROTEIN 6.1 g/dL (6.4-8.2)
[2021-06-12] MEDS: INSULIN LISPRO 300 UNITS/3 ML VIAL. SQ SCH ×3 (08:00→17:39)
[2021-06-12] MEDS: MAGNESIUM OXIDE 400 MG TABLET PO SCH ×2 (09:00→22:24)
[2021-06-12] MEDS: GABAPENTIN 100 MG CAPSULE. PO SCH ×2 (09:15→22:24)
[2021-06-12] MEDS: OXYBUTYNIN CHLORIDE 5 MG TABLET PO SCH ×4 (09:15→22:24)
[2021-06-12] MEDS: LACTOBACILLUS RHAMNOSUS GG 1 CAPSULE. PO SCH ×2 (09:15→22:23)
[2021-06-12] MEDS: POTASSIUM CHLORIDE 10 MEQ TABLET.ER. PO SCH ×2 (09:16→22:22)
[2021-06-12] MEDS: APIXABAN 2.5 MG TABLET PO SCH ×2 (09:16→22:24)
[2021-06-12] MEDS: FERROUS SULFATE 325 MG TABLET. PO SCH (09:16)
[2021-06-12] MEDS: ALLOPURINOL 100 MG TABLET. PO SCH (09:16)
[2021-06-12] MEDS: hydroCHLOROthiazide 25 MG TABLET. PO SCH (09:16)
[2021-06-12] MEDS: CALCITRIOL 0.25 MCG CAPSULE PO SCH (09:16)
[2021-06-12] MEDS: AMIODARONE HCL 200 MG TABLET. PO SCH (09:16)
[2021-06-12] MEDS: METOPROLOL SUCC 24HR ER 50 MG TAB.ER.24H. PO SCH (09:17)
[2021-06-12] MEDS: INSULIN GLARGINE SYRINGE. SQ SCH ×2 (10:00→22:26)
[2021-06-12] MEDS ORDERED: FUROSEMIDE 40 MG/4 ML VIAL IVP ONE (10:30)
[2021-06-12 11:09] VITALS: BP 122/76
--- NOTE | 2021-06-12 12:34 | NUR ---
assessed SENTHIL and found a Basilic vein which was sufficient size for a midline 4 Bangladeshi catheter, cleaned upper arm with prep and proceeded with sterile procedure with full body drape and sterile attire, pt received lidocaine and thru series of steps with seldinger process, inserted midline, pt tolerated well, good blood return. pt denied pain post procedure. line cut at 8cm and inserted, 0cm out arm circ 32cm
[2021-06-12 16:05] VITALS: BP 134/74
[2021-06-12 20:44] VITALS: BP 118/70
[2021-06-12] MEDS: CLOPIDOGREL BISULFATE 75 MG TABLET PO SCH (22:22)
--- NOTE | 2021-06-12 23:48 | PN ---
DATE: 06/12/2021 SUBJECTIVE: The patient is resting, slightly propped up in bed, clearly in no apparent respiratory distress, awake, alert. On questioning her, denied any complaint. Nursing staff did not voice any concern. PHYSICAL EXAMINATION: GENERAL: When I examined her, she was somewhat pale, no jaundice or cyanosis, no lymphadenopathy, no thyromegaly, no jugular venous distention. No lower limb edema. VITAL SIGNS: Her heart rate was 83, blood pressure was 134/66, temperature 97.2, respiratory rate was 18 and oxygen saturation was 96% on 1 L of oxygen. HEAD, EYES, EARS, NOSE, AND THROAT: Normocephalic, atraumatic. NECK: Supple. HEART: Normal first and second heart sounds. No gallop or murmur. CHEST: Shows central trachea, equal bilateral chest expansion, air entry, vesicular breath sounds with bilateral basal crepitation. I did not appreciate any rhonchi. ABDOMEN: Distended, soft, nontender. NEUROLOGIC: She is grossly intact. Her intake over the last 24 hours and output were incompletely recorded. LABORATORY DATA: This morning showed a white cell count of 8400, hemoglobin 10, hematocrit 31, MCV 87, her platelet count of 201,000. Her chemistry showed a serum sodium of 142, potassium 3.9, chloride 103, bicarbonate 32, anion gap of 7, BUN 39, creatinine 1.8. Estimated GFR was 26 mL per minute. Her glucose was 138, calcium was 8.2. Total bilirubin is normal. AST, ALT slightly elevated, but trending down. Her total protein was 6.1, albumin was 2.4. Her urine culture has grown more than 100,000 colony forming units per mL of gram-negative rods identified as Escherichia coli, that is ESBL, sensitive to meropenem as well as ertapenem. Her blood cultures are so far negative. ASSESSMENT: 1. Complicated urinary tract infection. Her urine has grown more than 100,000 colony forming units per mL of gram-negative rods identified as Escherichia coli that is extended-spectrum beta-lactamase sensitive to meropenem and Invanz. 2. Hypomagnesemia, improved. Her serum magnesium is 2.13, most recent urinary tract infection treated at [facility]. It showed a growth of extended-spectrum beta lactamase E. coli that was resistant to multiple antibiotics. 3. Multiple other medical problems including: A. Atrial fibrillation. Apparently, the patient continues to be in atrial fibrillation; however, the rate is controlled and she is well anticoagulated. B. Hypertension. C. Hyperlipidemia. D. Type 2 diabetes mellitus. E. Chronic kidney disease. F. Hypothyroidism. G. 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 PLAN: My plan is to order 1 more dose of Lasix 40 mg IV once today. We will continue with meropenem and order midline placement and hopefully she can be discharged to continue treatment as an outpatient with Invanz 1 g once a day for [address]: Jeremiah TID: [id number]
[2021-06-12 23:51] VITALS: BP 134/67
[2021-06-13] MEDS: MEROPENEM 500 MG in IV NORMAL SALINE 50ML 50 ML IV SCH ×2 (00:30→08:05)
[2021-06-13 06:39] VITALS: BP 126/57
[2021-06-13] MEDS: LEVOTHYROXINE 50 MCG TABLET PO SCH (06:40)
[2021-06-13] MEDS: INSULIN LISPRO 300 UNITS/3 ML VIAL. SQ SCH ×2 (08:00→12:11)
[2021-06-13] MEDS: hydroCHLOROthiazide 25 MG TABLET. PO SCH (08:05)
[2021-06-13] MEDS: FERROUS SULFATE 325 MG TABLET. PO SCH (08:05)
[2021-06-13] MEDS: LACTOBACILLUS RHAMNOSUS GG 1 CAPSULE. PO SCH (08:05)
[2021-06-13] MEDS: AMIODARONE HCL 200 MG TABLET. PO SCH (08:06)
[2021-06-13] MEDS: ALLOPURINOL 100 MG TABLET. PO SCH (08:06)
[2021-06-13] MEDS: METOPROLOL SUCC 24HR ER 50 MG TAB.ER.24H. PO SCH (08:06)
[2021-06-13 08:07] LABS: ALBUMIN 2.4 g/dL (3.4-5.0); ALBUMIN/GLOBULIN RATIO 0.6 (1.0-1.7); CALCIUM 8.8 mg/dL (8.5-10.1); CREATININE 1.7 mg/dL (0.6-1.0); GFR 28.4; TOTAL BILIRUBIN 0.4 mg/dL (0.2-1.0); TOTAL PROTEIN 6.2 g/dL (6.4-8.2)
[2021-06-13] MEDS: CALCITRIOL 0.25 MCG CAPSULE PO SCH (08:07)
[2021-06-13] MEDS: GABAPENTIN 100 MG CAPSULE. PO SCH (08:07)
[2021-06-13] MEDS: APIXABAN 2.5 MG TABLET PO SCH (08:07)
[2021-06-13] MEDS: POTASSIUM CHLORIDE 10 MEQ TABLET.ER. PO SCH (08:07)
[2021-06-13] MEDS: OXYBUTYNIN CHLORIDE 5 MG TABLET PO SCH ×2 (08:07→12:14)
[2021-06-13] MEDS: MAGNESIUM OXIDE 400 MG TABLET PO SCH (08:08)
[2021-06-13] MEDS: INSULIN GLARGINE SYRINGE. SQ SCH (08:21)
[2021-06-13 11:03] VITALS: BP 127/81
[2021-06-13] MEDS ORDERED: ERTAPENEM 1 GM in IV NORMAL SALINE 50ML 50 ML IV ONE (14:30)
--- NOTE | 2021-06-13 16:13 | NUR ---
Nursing Note Discharge Pt accompanied by staff, daughter, and son. Outpt infusions set up to work with pt and family for antibiotics. Pt taken back to [place] via family vehicle. Pt in stable condition. Scripts left with pt and son. Discharge instructions given and left with pt and son.
--- NOTE | 2021-06-13 23:02 | DS ---
DATE OF DISCHARGE: 06/13/2021 HOSPITAL COURSE: The patient is an 86-year-old female patient who was admitted with generalized weakness, increased confusion. Her blood sugar was elevated and she started vomiting. Symptoms are similar to her recent urinary tract infection for which she was admitted at [facility], [place] and from there she was admitted to [facility] where she was diagnosed with ESBL E. coli. She has moved recently to [facility] and when she came to our Emergency Department, she has leukocytosis. Her urinalysis showed that there is too numerous to count wbc's and the urine was sent for culture and sensitivity. She was started on meropenem. Eventually, her urine culture has grown more than 100,000 colony forming units per mL of gram-negative rods identified as Escherichia coli ESBL. She has had a midline and the plan was for her to be discharged to receive the Invanz 1 gram IV daily for the next 10 days. While here, she also went into atrial fibrillation with rapid ventricular response, treated with digoxin. She also went into acute on chronic diastolic congestive heart failure, treated with IV Lasix. GENERAL: When I saw her today, she was resting almost flat in bed, in no apparent respiratory distress. She was pale, but no jaundice, cyanosis or thyromegaly. No jugular venous distention. No limb edema. VITAL SIGNS: Her heart rate was 75, blood pressure is 127/81, her temperature was 98.1, respiratory rate was 18 and oxygen saturation was 94% on room air. HEAD, EYES, EARS, NOSE, AND THROAT: Normocephalic, atraumatic. NECK: Supple. HEART: Showed normal first and second heart sounds, no gallop or murmur. CHEST: Shows central trachea, equal bilateral expansion, air entry, vesicular breath sounds. No crepitation or rhonchi. ABDOMEN: Distended, soft, nontender. NEUROLOGIC: She was grossly intact. Her intake over the last 24 hours was 1300, output was 800. LABORATORY DATA: As of yesterday showed a white cell count of 8400, hemoglobin 10, hematocrit 31, MCV 87 and platelet count 301,000. Her chemistry showed a serum sodium 143, potassium 4, chloride 104, bicarbonate 34, anion gap of 5, BUN 41, creatinine was 1.7. Estimated GFR was 28 mL per minute. Her glucose 167, calcium was 8.8. Total bilirubin is normal. AST, ALT is elevated, but trending down. Her beta natriuretic peptide was ____. Total protein 6.2, albumin was 2.4. DISCHARGE MEDICATIONS: She was discharged home to continue on allopurinol 100 mg once a day, amiodarone 200 mg once a day, apixaban 2.5 mg twice a day, atorvastatin calcium 20 mg at bedtime, calcitriol 0.25 mg daily, clopidogrel bisulfate 75 mg once a day, ferrous sulfate 325 mg once a day, gabapentin 100 mg twice a day, hydrochlorothiazide 25 mg once a day, insulin. She is on Tresiba 6 units twice a day, levothyroxine sodium 50 mcg daily, metoprolol succinate 100 mg once a day, oxybutynin chloride 15 mg twice a day, Protonix 40 mg once a day and potassium chloride 20 mEq twice a day. FINAL DISCHARGE DIAGNOSES: 1. Complicated urinary tract infection with growth of more than 100,000 colony forming units per mL of gram-negative rods identified as Escherichia coli extended spectrum beta lactamase positive that is sensitive to meropenem and Invanz. 2. Hypomagnesemia, resolved. 3. Atrial fibrillation, rate controlled, well anticoagulated. 4. Hypertension. 5. Hyperlipidemia. 6. Type 2 diabetes mellitus. 7. Chronic kidney disease. 8. Hypothyroidism. 9. 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 The patient will be coming as an outpatient for 1 gram IV of Invanz daily for 10 days, a prescription was given for Lasix 40 mg as needed. If the patient gained 4 or more pounds, she will follow with Dr. Fernando for outpatient cardioversion. WILLIE/ANGEL/PIYUSH DR: WILLIE/jie TID: [id number]
== END 2021-06-13 16:16 | DRG 291 ==
LOC: ER 22:07 → 1 SOUTH 06-10 01:24
PROVIDERS: ADMIT Hospitalist; ATTEND Hospitalist
DX: I13.0 Hypertensive heart and chronic kidney disease with heart failure and stage 1 through stage 4 chronic kidney disease, or unspecified chronic kidney disease (principal); I50.33 Acute on chronic diastolic (congestive) heart failure; R65.11 Systemic inflammatory response syndrome (SIRS) of non-infectious origin with acute organ dysfunction; N39.0 Urinary tract infection, site not specified; N17.9 Acute kidney failure, unspecified; E83.42 Hypomagnesemia; E78.5 Hyperlipidemia, unspecified; I48.0 Paroxysmal atrial fibrillation; J44.9 Chronic obstructive pulmonary disease, unspecified; F41.9 Anxiety disorder, unspecified; G47.33 Obstructive sleep apnea (adult) (pediatric); E11.42 Type 2 diabetes mellitus with diabetic polyneuropathy; K21.9 Gastro-esophageal reflux disease without esophagitis; M10.9 Gout, unspecified; K76.1 Chronic passive congestion of liver; M19.90 Unspecified osteoarthritis, unspecified site; N18.9 Chronic kidney disease, unspecified; E03.9 Hypothyroidism, unspecified; E11.22 Type 2 diabetes mellitus with diabetic chronic kidney disease; Z98.42 Cataract extraction status, left eye; Z98.41 Cataract extraction status, right eye; Z90.710 Acquired absence of both cervix and uterus; Z87.440 Personal history of urinary (tract) infections; Z86.19 Personal history of other infectious and parasitic diseases; Z82.49 Family history of ischemic heart disease and other diseases of the circulatory system; Z79.899 Other long term (current) drug therapy
CPT/HCPCS: 36415; 71045; 74176; 80053; 81001; 82947; 83605; 83735; 83880; 85025; 85027; 87040; 87077; 87086; 87186; 96361; 96374; J1160; J1335; J1815; J1940; J2060; J2185; J2405; J3475; 97530; 99285-25; J7030

== ENCOUNTER 2021-06-15 15:30 | Inpatient (IN) | payer MEDICARE, BC ==
[~2021-06-15] VITALS: Ht 162.6 cm; Wt 91.7 kg
[~2021-06-15 15:30] MED LIST: ALLO100T PO; AMIO200T6 PO; APIX2.5T PO; ATOR20TA58 PO; CALC0.2530 PO; CLOP75TA PO; FERR325T14 PO; GABA-585 PO; HYDR-2145 PO; INSU100V37 SQ; LEVO50CA3 PO; METO-247 PO; OXYB15TA18 PO; PANT40TA6 PO; POTA10TA5 PO
[2021-06-15 17:00] VITALS: BP 155/83
--- NOTE | 2021-06-15 17:00 | NUR ---
admission note Pt admitted to room 109 via wheelchair accompanied by family member.
[2021-06-15] MEDS ORDERED: FUROSEMIDE 40 MG/4 ML VIAL IVP ONE (17:15)
[2021-06-15] MEDS ORDERED: DEXTROSE 50% 25 GM / 50ML DISP.SYRIN. IV PRN (17:15)
[2021-06-15] MEDS: INSULIN LISPRO 300 UNITS/3 ML VIAL. SQ SCH (17:55)
--- NOTE | 2021-06-15 18:31 | HP ---
ADMIT DATE: 06/15/2021 HISTORY OF PRESENT ILLNESS: The patient is an 86-year-old female patient who came to the hospital today for her scheduled IV antibiotic. She gets 1 gram of Invanz for treatment of her ESBL positive Escherichia coli that she grew from her urine. She was actually discharged from this facility on 06/13/2021 with a plan to continue 10-day course of IV Invanz daily after receiving about 4 days course of meropenem for her ESBL E. coli. When she came to the hospital today, she has been complaining of marked weakness and easy tiredness. She was so weak that she was worried that she will fall and when I examined her, she was clearly in heart failure with bilateral crepitation, although her heart rate or her vital signs were otherwise stable. The patient was admitted with acute on chronic congestive heart failure. We will continue with all her medications. We will consult the regulatory affairs strategy specialist and she will need to be aggressively diuresed. PAST MEDICAL HISTORY: Significant for recurrent UTIs. Her last 2 episodes were due to ESBL Escherichia coli, 1 diagnosed at [place] and was treated in [facility] and the most recent one was last week and was admitted to this facility. Other medical problems include hypertension, type 2 diabetes mellitus, hyperlipidemia, abdominal aortic aneurysm, atrial fibrillation, chronic kidney disease and hypothyroidism. PAST SURGICAL HISTORY: Significant for aortic stent placement, left carotid endarterectomy, bilateral cataract extraction, total abdominal hysterectomy, bilateral salpingo-oophorectomy. She has had screening colonoscopy and laminectomy. ALLERGIES: She has no known drug allergies. MEDICATIONS: She was discharged home to continue on allopurinol 100 mg once a day, amiodarone 200 mg once a day, apixaban 2.5 mg twice a day, atorvastatin calcium 20 mg at bedtime, calcitriol 0.25 mg once a day, Plavix 75 mg once a day, ferrous sulfate 325 mg once a day, gabapentin 100 mg twice a day, hydrochlorothiazide 25 mg once a day. She is on Tresiba 6 units twice a day, levothyroxine sodium 50 mcg daily, metoprolol succinate 100 mg once a day, oxybutynin chloride 15 mg twice a day and Protonix 40 mg once a day as well as potassium chloride 20 mEq twice a day. FAMILY HISTORY: Noncontributory. SOCIAL HISTORY: She has a son and a daughter. She has moved recently to be here at [facility]. She does not smoke, drink alcohol or recreational drugs. PHYSICAL EXAMINATION: GENERAL: On examining her, she was sitting in her wheelchair in no apparent respiratory distress. She was pale, but jaundiced or cyanosed. No lymphadenopathy, no thyromegaly, no jugular venous distention. Mild bilateral lower limb edema. VITAL SIGNS: Her heart rate was 63, blood pressure was 155/83, temperature was 99.4, respiratory rate was 20 and oxygen saturation was 99%. HEAD, EYES, EARS, NOSE, AND THROAT: Normocephalic, atraumatic. NECK: Supple. HEART: Showed normal first and second heart sounds. No gallop, rub or murmur. CHEST: Shows central trachea, equal bilateral expansion, air entry, vesicular breath sounds with bilateral basal crepitation posteriorly up to the mid zone. I could not appreciate any rhonchi. ABDOMEN: Distended, soft, nontender. NEUROLOGIC: She was grossly intact. LABORATORY DATA: On arrival showed a white cell count 7700, hemoglobin 10, hematocrit 32, MCV 87, and platelet count of 249,000 with normal manual differential. Her chemistry showed her serum sodium 143, potassium 4.4, chloride 103, bicarbonate 34, anion gap of 6, BUN 35, creatinine 1.5. Estimated GFR was 32 mL per minute. Her glucose was 193, Lactic acid is 1.7, calcium was 8.8. Total bilirubin, AST, ALT, alkaline phosphatase slightly elevated. Her beta natriuretic peptide was 13,388. Total protein was 6.4, albumin was 2.6. ASSESSMENT: In summary, this is an 86-year-old female patient who was readmitted with acute on chronic diastolic congestive heart failure. She has also urinary tract infection with growth of more than 100,000 colony forming units per mL of Escherichia coli that is ESBL, sensitive to Invanz and meropenem. Other medical problems include: 1. Atrial fibrillation, rate controlled, well anticoagulated. 2. Hypertension. 3. Hyperlipidemia. 4. Type 2 diabetes mellitus. 5. Chronic kidney disease. 6. Hypothyroidism. 7. She continued to have transaminitis, likely due to congestive hepatopathy. PLAN: My plan is to continue with IV fluid. Continue with all her medications. We might have to switch her back to meropenem given that she is now an inpatient. I will arrange for her to have a chest x-ray and also start her on IV Lasix, probably 40 mg IV tonight and then 40 mg IV daily and consult the Cardiology team for further evaluation and treatment. DANITA DR: Jeremiah TID: [id number]
[2021-06-15 19:10] VITALS: BP 153/80
[2021-06-15] MEDS: POTASSIUM CHLORIDE 10 MEQ TABLET.ER. PO SCH (20:22)
[2021-06-15] MEDS: APIXABAN 2.5 MG TABLET PO SCH (20:22)
[2021-06-15] MEDS: CLOPIDOGREL BISULFATE 75 MG TABLET PO SCH (20:23)
[2021-06-15] MEDS: GABAPENTIN 100 MG CAPSULE. PO SCH (20:23)
[2021-06-15] MEDS: OXYBUTYNIN CHLORIDE 5 MG TABLET PO SCH (20:23)
[2021-06-15] MEDS: ATORVASTATIN CALCIUM 20 MG TABLET PO SCH (20:23)
[2021-06-15] MEDS: INSULIN GLARGINE SYRINGE. SQ SCH (21:00)
[2021-06-15 23:00] VITALS: BP 159/86
--- NOTE | 2021-06-16 01:13 | NUR ---
NURSING NOTE Has been feeling the urge to void approx every hour; ambulates with aid of walker, however states "all these trips to the bathroom are wearing me out"; bedside commode provided for safety/comfort; will continue to monitor.
[2021-06-16 05:01] VITALS: BP_SYST 132; BP_SYST 185; BP_DIAS 74; BP_DIAS 84
--- NOTE | 2021-06-16 05:21 | RAD ---
XR CHEST 1V INDICATION: Reason: worsening shortness of breath / Spl. Instructions: / History: . COMPARISON STUDY: 06/10/2021. FINDINGS: Lungs: Low lung volume. Stable mild bilateral interstitial opacities. Pleura: Stable pleural spaces. Heart and Mediastinum: Stable cardiomediastinal silhouette and great vessels. IMPRESSION: Stable mild bilateral interstitial opacities. Electronically signed by: Ignacio Pugh MD (06/16/2021 5:19 AM) [facility]
[2021-06-16] MEDS: LEVOTHYROXINE 50 MCG TABLET PO SCH (05:54)
[2021-06-16 07:24] LABS: ALBUMIN 2.8 g/dL (3.4-5.0); ALBUMIN/GLOBULIN RATIO 0.7 (1.0-1.7); CALCIUM 9.3 mg/dL (8.5-10.1); CREATININE 1.5 mg/dL (0.6-1.0); GFR 32.8; POTASSIUM 3.9 mmol/L (3.5-5.1); TOTAL BILIRUBIN 0.5 mg/dL (0.2-1.0); TOTAL PROTEIN 6.6 g/dL (6.4-8.2)
--- NOTE | 2021-06-16 07:26 | PDOC2 ---
CARDIAC CONSULT DATE OF CONSULT DOS: DATE: 06/16/21 TIME: 07:13 REASON FOR CONSULT Reason for Consult Acute on chronic CHF REFERRING PHYSICIAN Referring Physician Dr. Pimentel SOURCE Source: Chart review, Patient HPI History of Present Illness This is an 86 yo female who was recently admitted for complicated UTI. Was discharged home to [facility] facility on 06/13/21. Presented yesterday as an outpatient for IV antibiotic therapy. Complained of significant weakness and was noted to be short of breath. Was admitted to the hospital for further evaluation and treatment. Of note, patient did not want to go to to Skilled Unit for rehab. She denies any dizziness, diaphoresis, or nausea/vomiting. Reports SOA to be slightly better. Complains of having to get up frequently in the night to urinate. PAST MEDICAL HISTORY Past Medical History Cardiovascular: AFIB, CHF, HTN, hyperipidemia, Other (carotid arterial disease, aortic aneurysm ) Pulmonary: COPD, Other (BHARATI) CENTRAL NERVOUS SYSTEM: Periperal neuropathy GI: GERD Heme/Onc: Anemia NOS Psych: Anxiety Musculoskeletal: Osteoarthritis Rheumatologic: Gout Renal/: Chronic renal insuff, UTI Endocrine: Hypothyroidism PAST SURGICAL HISTORY Past Surgical History Significant for aortic stent placement, left carotid endarterectomy, bilateral cataract extraction, hysterectomy, and laminectomy. FAMILY HISTORY Family History: Heart Disease, Hypertension SOCIAL HISTORY Social History Smoke: No ALCOHOL: none Drugs: None Lives: [facility] CURRENT MEDICATIONS Current Medications Current Medications Allopurinol (Zyloprim) 100 mg DAILY PO ; Start 06/16/21 at 09:00 Amiodarone HCl (Cordarone) 200 mg DAILY PO ; Start 06/16/21 at 09:00 Apixaban (Eliquis) 2.5 mg BID PO Last administered on 06/15/21at 20:22; Start 06/15/21 at 21:00 Atorvastatin Calcium (Lipitor) 20 mg QHS PO Last administered on 06/15/21at 20:23; Start 06/15/21 at 21:00 Calcitriol (Rocaltrol) 0.25 mcg DAILY PO ; Start 06/16/21 at 09:00 Clopidogrel Bisulfate (Plavix) 75 mg HS PO Last administered on 06/15/21at 20:23; Start 06/15/21 at 21:00 Ferrous Sulfate (Feosol) 325 mg DAILY PO ; Start 06/16/21 at 09:00 Gabapentin (Neurontin) 100 mg BID PO Last administered on 06/15/21at 20:23; Start 06/15/21 at 21:00 Pantoprazole Sodium (Protonix) 40 mg DAILYAC PO ; Start 06/16/21 at 07:30 Levothyroxine Sodium (Synthroid) 50 mcg DAILY06 PO Last administered on 06/16/21at 05:54; Start 06/16/21 at 06:00 Metoprolol Succinate (Toprol Xl) 50 mg DAILY PO ; Start 06/16/21 at 09:00 Oxybutynin Chloride (Ditropan) 5 mg TID PO Last administered on 06/15/21at 20:23; Start 06/15/21 at 21:00 Potassium Chloride (Klor-Con) 10 meq BID PO Last administered on 06/15/21at 20:22; Start 06/15/21 at 21:00 Insulin Glargine (Lantus Syringe) 8 unit BID SQ Last administered on 06/15/21at 21:00; Start 06/15/21 at 21:00 Insulin Human Lispro (HumaLOG) 0-5 UNITS TIDWMEALS SQ Last administered on 06/15/21at 17:55; Start 06/15/21 at 17:45 Dextrose (Dextrose 50%-Water Syringe) 12.5 gm PRN Q15MIN PRN IV SEE COMMENTS; Start 06/15/21 at 17:15 Furosemide (Lasix) 40 mg 1X ONCE IVP Last administered on 06/15/21at 17:53; Start 06/15/21 at 17:15; Stop 06/15/21 at 17:17; Status DC Furosemide (Lasix) 60 mg DAILY IVP ; Start 06/16/21 at 09:00 Meropenem 500 mg/ Sodium Chloride 50 ml @ 100 mls/hr Q8HRS IV ; Start 06/16/21 at 09:00 Active Scripts Active Reported Tresiba (Insulin Degludec) 100 Unit/1 Ml Vial 6 Unit SQ BID Klor-Con 10 (Potassium Chloride) 10 Meq Tablet.er 1 Tab PO BID 30 Days Pantoprazole Sodium 40 Mg Tablet.dr 1 Tab PO DAILY Oxybutynin Chloride Er (Oxybutynin Chloride) 15 Mg Tab.er.24 1 Tab PO BID Metoprolol Succinate ( Xl ) (Metoprolol Succinate) 100 Mg Tab.er.24h 1 Tab PO DAILY Levothyroxine (Levothyroxine Sodium) 50 Mcg Capsule 50 Mcg PO DAILY06 Hydrochlorothiazide Tablet (Hydrochlorothiazide) 25 Mg Tablet 25 Mg PO DAILY Gabapentin (Gabapentin) 100 Mg Capsule 100 Mg PO BID Ferrous Sulfate 325 Mg Tablet 1 Tab PO DAILY Eliquis (Apixaban) 2.5 Mg Tablet 2.5 Mg PO BID Clopidogrel (Clopidogrel Bisulfate) 75 Mg Tablet 1 Tab PO HS Calcitriol 0.25 Mcg Capsule 1 Cap PO DAILY Atorvastatin Calcium 20 Mg Tablet 20 Mg PO QHS Amiodarone Hcl 200 Mg Tablet 1 Tab PO DAILY Allopurinol 100 Mg Tablet 1 Tab PO DAILY ALLERGIES Allergies: Uncoded Allergies: CONTACT ISOLATION (Adverse Reaction, Unknown, 06/12/21) ESBL in urine 06/10/2021. ROS Review of Systems 14 point ROS conducted with pertinent positives noted above in HPI PHYSICAL EXAM Physical Exam General: Alert, Oriented X3, Cooperative, No acute distress HEENT: Atraumatic Lungs: bibasilar crackles Heart: Other (IRRR, tele AFIB, rate controlled) Abdomen: Soft, Other (obese ) Extremities: 1+ bilateral LE edema, Normal pulses Skin: No breakdown Neuro: Normal speech, Sensation intact Psych/Mental Status: Mental status NL, Mood NL MUSCULOSKELETAL: Osteoarthritic changes both hands VITALS Vital Signs Vital Signs Date Time Temp Pulse Resp B/P (MAP) Pulse Ox O2 Delivery O2 Flow Rate FiO2 06/16/21 05:01 97.7 104 18 132/74 (93) 94 Room Air LABS LABS Laboratory Tests Test 06/15/21 17:06 06/15/21 20:18 Glucose (Fingerstick) 268 mg/dL (70-99) 205 mg/dL (70-99) ASSESSMENT/PLAN Assessment/Plan 1. Weakness 2. Recent complicated UTI; cultures with ESBL positive Escherichia coli 3. Acute on chronic probable diastolic CHF 4. AFIB; suspect paroxysmal as patient is on Amiodarone therapy. Presently AFIB. rate controlled 5. Accelerated hypertension; now controlled 6. Hyperlipidemia; statin 7. Diabetes, II 8. CKD; Cr stable 9. Hypothyroidism 10. Transaminitis Recommendations Diuresis with close monitoring of renal function Metoprolol resumed for rate control Continue Amiodarone therapy for now Eliquis for stroke prophylaxis; consider LAAO as patient probable poor candidate for long-term OAC Continue secondary prevention Ongoing antibiotic therapy for UTI as per IM Supportive care Patient has appoint at end of month to establish care with [facility] cardiology. ELEANOR HUDSON APRN Jun 16, 2021 07:26
[2021-06-16] MEDS: INSULIN LISPRO 300 UNITS/3 ML VIAL. SQ SCH ×3 (08:00→17:23)
[2021-06-16] MEDS: PANTOPRAZOLE 40 MG TABLET. PO SCH (08:29)
[2021-06-16] MEDS: GABAPENTIN 100 MG CAPSULE. PO SCH ×2 (08:29→20:49)
[2021-06-16] MEDS: APIXABAN 2.5 MG TABLET PO SCH ×2 (08:30→20:49)
[2021-06-16] MEDS: FERROUS SULFATE 325 MG TABLET. PO SCH (08:30)
[2021-06-16] MEDS: AMIODARONE HCL 200 MG TABLET. PO SCH (08:30)
[2021-06-16] MEDS: METOPROLOL SUCC 24HR ER 50 MG TAB.ER.24H. PO SCH (08:31)
[2021-06-16] MEDS: POTASSIUM CHLORIDE 10 MEQ TABLET.ER. PO SCH ×2 (08:31→20:49)
[2021-06-16] MEDS: ALLOPURINOL 100 MG TABLET. PO SCH (08:31)
[2021-06-16] MEDS: CALCITRIOL 0.25 MCG CAPSULE PO SCH (08:31)
[2021-06-16] MEDS: OXYBUTYNIN CHLORIDE 5 MG TABLET PO SCH ×3 (08:31→20:49)
[2021-06-16] MEDS: FUROSEMIDE 100 MG/10 ML VIAL IVP SCH (08:33)
[2021-06-16] MEDS: INSULIN GLARGINE SYRINGE. SQ SCH ×2 (09:00→20:48)
[2021-06-16] MEDS: MEROPENEM 500 MG in IV NORMAL SALINE 50ML 50 ML IV SCH ×3 (09:45→20:54)
[2021-06-16 11:08] VITALS: BP 153/73
[2021-06-16 15:46] VITALS: BP 147/70
--- NOTE | 2021-06-16 16:37 | CARD ---
MR#: [id number] Date of Study: 06/16/2021 Ordering Physician: ELEANOR HUDSON, Referring Physician: ELEANOR HUDSON, Tech: Marsha Child, [facility] APPROVED REPORT EXAM: Two-dimensional and M-mode echocardiogram with Doppler and color Doppler. Other Information Quality : AverageHR: 74bpm INDICATION Atrial Fibrillation Congestive Heart Failure RISK FACTORS Hypertension Hyperlipidemia 2D DIMENSIONS RVDd3.0 (2.9-3.5cm)Left Atrium(2D)4.5 (1.6-4.0cm) IVSd1.1 (0.7-1.1cm)Aortic Root(2D)2.9 (2.0-3.7cm) LVDd4.7 (3.9-5.9cm)LVOT Diameter2.0 (1.8-2.4cm) PWd1.1 (0.7-1.1cm)LVDs2.2 (2.5-4.0cm) FS (%) 53.8 %SV88.1 ml Aortic Valve AoV Peak Osmel.176.5cm/sAoV VTI40.1cm AO Peak GR.12.5mmHgLVOT Peak Osmel.114.2cm/s LVOT VTI 24.72cmAO Mean GR.6mmHg HOLLY (VMAX)1.43sr5BFW (VTI)1.86cm2 Mitral Valve MV E Hwatypyq451.9cm/sMV DECEL [id number] MV A Vbuaicfw86.0cm/sE/A Ratio2.6 Pulmonary Valve PV Peak Ucrupzjh05.6cm/sPV Peak Grad.3mmHg Tricuspid Valve TR P. Pxtnjsbt130cn/sRAP [id number] TR Peak Gr.13epDaWIIU11odHc LEFT VENTRICLE The left ventricle is normal size. There is mild concentric left ventricular hypertrophy. The left ve ntricular systolic function is normal and the ejection fraction is within normal range. The Ejection Fraction is 55-60%. There is normal LV segmental wall motion. Tissue Doppler imaging reveals moderate left ventricular diastolic dysfunction. RIGHT VENTRICLE The right ventricle is borderline dilated. There is normal right ventricular wall thickness. The righ t ventricular systolic function is normal. ATRIA The left atrium is mildly dilated. The right atrium is not well visualized. The interatrial septum is intact with no evidence for an atrial septal defect or patent foramen ovale as noted on 2-D or Doppl er imaging. AORTIC VALVE The aortic valve is normal in structure and function. Doppler and Color Flow revealed no significant aortic regurgitation. There is no significant aortic valvular stenosis. Calculated aortic valve area is 1.9 cm2 with maximum pressure gradient of 13 mmHg and mean pressure gradient of 6 mmHg. MITRAL VALVE The mitral valve is normal in structure and function. There is no evidence of mitral valve prolapse. There is no mitral valve stenosis. Doppler and Color-flow revealed trace mitral regurgitation. TRICUSPID VALVE The tricuspid valve is normal in structure and function. Doppler and Color Flow revealed mild tricusp id regurgitation with an estimated PAP of 41 mmHg. There is no tricuspid valve stenosis. PULMONIC VALVE The pulmonic valve is not well visualized. Doppler and Color Flow revealed no pulmonic valvular regur gitation. GREAT VESSELS The aortic root is normal in size. The ascending aorta is normal in size. The IVC is normal in size a nd collapses >50% with inspiration. PERICARDIAL EFFUSION There is a trace circumferential pericardial effusion with no hemodynamic significance. Critical Notification Critical Value: No <Conclusion> The left ventricle is normal size. The left ventricular systolic function is normal and the ejection fraction is within normal range. The Ejection Fraction is 55-60%. There is normal LV segmental wall motion. There is mild concentric left ventricular hypertrophy. Doppler and Color Flow revealed no significant aortic regurgitation. There is no significant aortic valvular stenosis. Doppler and Color-flow revealed trace mitral regurgitation. Doppler and Color Flow revealed mild tricuspid regurgitation with an estimated PAP of 41 mmHg. Signed by : Lenny Perez MD Electronically Approved : 06/16/2021 16:36:54
[2021-06-16 19:46] VITALS: BP 136/78
[2021-06-16] MEDS: CLOPIDOGREL BISULFATE 75 MG TABLET PO SCH (20:49)
[2021-06-16] MEDS: ATORVASTATIN CALCIUM 20 MG TABLET PO SCH (20:49)
[2021-06-16] MEDS: LACTOBACILLUS RHAMNOSUS GG 1 CAPSULE. PO SCH (20:49)
[2021-06-16 23:41] VITALS: BP 151/77
--- NOTE | 2021-06-17 00:31 | PN ---
DATE: 06/16/2021 SUBJECTIVE: The patient is resting almost flat in bed, in no apparent distress. She was sleepy, but arousable. She seemed to be definitely in much better than yesterday. PHYSICAL EXAMINATION: GENERAL: When I examined her, she looked somewhat pale, but no jaundice, cyanosis. No lymphadenopathy, no thyromegaly, no jugular venous distention. No lower limb edema. VITAL SIGNS: Her heart rate was 71, blood pressure is 153/73, temperature was 98, respiratory rate was 16 and oxygen saturation was 95%. HEAD, EYES, EARS, NOSE, AND THROAT: Normocephalic and atraumatic. NECK: Supple. HEART: Showed normal first and second heart sounds. No gallop, rub or murmur. CHEST: Clear to auscultation. No crepitation or rhonchi. ABDOMEN: Distended, soft, nontender. NEUROLOGIC: She was grossly intact. Her intake over the last 24 hours and output are incompletely recorded. LABORATORY DATA: This morning showed a serum sodium 147, potassium 3.9, chloride 104, bicarbonate 37, anion gap of 6, BUN 32, creatinine 1.5. Estimated GFR was 33 mL per minute. Her glucose 109, calcium was 9.3. Total bilirubin is normal. AST, ALT, alkaline phosphatase slightly elevated, but trending down. Total protein 6.6, albumin was 2.8. IMAGING STUDIES: Her chest x-ray showed that she has stable cardiomediastinal silhouette with great results, stable mild bilateral interstitial opacities. ASSESSMENT: 1. Acute on chronic diastolic congestive heart failure. 2. Complicated urinary tract infection, extended spectrum beta-lactamases positive Escherichia coli. 3. Generalized weakness and tiredness. 4. Atrial fibrillation, suspected to be paroxysmal. She continues to be in atrial fibrillation; however, rate controlled, well anticoagulated. 5. Hypertension. 6. Hyperlipidemia. 7. Type 2 diabetes. 8. Chronic kidney disease. 9. Hypothyroidism. 10. Transaminitis. PLAN: My plan is to continue with all her current medication. Continue with IV meropenem. Apparently, her son wanted her to be cardioverted sooner and nurse practitioner will discuss with Dr. Fernando about that option. WILLIE/REJI DR: WILLIE/jie TID: [id number]
[2021-06-17] MEDS: LEVOTHYROXINE 50 MCG TABLET PO SCH (05:31)
[2021-06-17] MEDS: MEROPENEM 500 MG in IV NORMAL SALINE 50ML 50 ML IV SCH ×3 (05:32→21:49)
[2021-06-17 06:20] LABS: CALCIUM 8.8 mg/dL (8.5-10.1); CREATININE 1.7 mg/dL (0.6-1.0); GFR 28.4; POTASSIUM 3.7 mmol/L (3.5-5.1)
[2021-06-17 06:23] VITALS: BP 151/80
--- NOTE | 2021-06-17 07:29 | PDOC ---
ELEANOR HUDSON REVIT DRAFTER 06/17/21 0729: CARDIO Progress Notes Date & Time Date of Service DATE: 06/17/21 TIME: 07:26 Time of Evaluation 07:26 Subjective Notes SOA improved. No chest pain, palpitations Vitals Vitals Vital Signs Date Time Temp Pulse Resp B/P (MAP) Pulse Ox O2 Delivery O2 Flow Rate FiO2 06/17/21 06:23 98.2 101 18 151/80 (103) 98 Room Air Weight Weight [ ] Input and Output I.O. Intake and Output 06/17/21 07:00 Intake Total 50 ml Balance 50 ml Intake IV Total 50 ml # Voids 6 Laboratory Labs Laboratory Tests Test 06/15/21 17:06 06/15/21 20:18 06/16/21 06:39 06/16/21 07:34 Glucose (Fingerstick) 268 mg/dL (70-99) 205 mg/dL (70-99) 88 mg/dL (70-99) Sodium Level 147 mmol/L (136-145) Potassium Level 3.9 mmol/L (3.5-5.1) Chloride Level 104 mmol/L (98-107) Carbon Dioxide Level 37 mmol/L (21-32) Anion Gap 6 (6-14) Blood Urea Nitrogen 32 mg/dL (7-20) Creatinine 1.5 mg/dL (0.6-1.0) Estimated GFR (Cockcroft-Gault) 32.8 BUN/Creatinine Ratio 21 (6-20) Glucose Level 109 mg/dL (70-99) Calcium Level 9.3 mg/dL (8.5-10.1) Total Bilirubin 0.5 mg/dL (0.2-1.0) Aspartate Amino Transf (AST/SGOT) 42 U/L (15-37) Alanine Aminotransferase (ALT/SGPT) 185 U/L (14-59) Alkaline Phosphatase 189 U/L (46-116) Total Protein 6.6 g/dL (6.4-8.2) Albumin 2.8 g/dL (3.4-5.0) Albumin/Globulin Ratio 0.7 (1.0-1.7) Test 06/16/21 11:55 06/16/21 17:03 06/16/21 20:23 06/17/21 05:40 Glucose (Fingerstick) 208 mg/dL (70-99) 231 mg/dL (70-99) 193 mg/dL (70-99) Sodium Level 146 mmol/L (136-145) Potassium Level 3.7 mmol/L (3.5-5.1) Chloride Level 102 mmol/L (98-107) Carbon Dioxide Level 39 mmol/L (21-32) Anion Gap 5 (6-14) Blood Urea Nitrogen 30 mg/dL (7-20) Creatinine 1.7 mg/dL (0.6-1.0) Estimated GFR (Cockcroft-Gault) 28.4 Glucose Level 166 mg/dL (70-99) Calcium Level 8.8 mg/dL (8.5-10.1) UT-Myc-Y-Type Natriuretic Peptide 8033 pg/mL (0-449) Physical Exams HEENT: Neck Supple W Full Motion Chest: Symmetric Lungs: Other (bibasilar crackles ) Heart: irregularly irregular (AFIB, rate controlled ) Abdomen: Soft N/T Extremities: Other (trace bilateral LE ) Neurology: alert, oriented, follow commands Assessment Assessment 1. Weakness 2. Recent complicated UTI; cultures with ESBL positive Escherichia coli 3. Acute on chronic diastolic CHF; Echo with preserved LV systolic function; improved s/p IV diuresis 4. AFIB; suspect paroxysmal as patient is on Amiodarone therapy. Presently AFIB. rate controlled 5. Accelerated hypertension; controlled overall 6. Hyperlipidemia; statin 7. Diabetes, II 8. THELMA on CKD; Cr 1.7 9. Hypothyroidism 10. Transaminitis Recommendations Start oral Lasix therapy CT chest for further evaluation Metoprolol for rate control Eliquis for stroke prophylaxis; consider outpatient referral for LAAO as patient probable poor candidate for long-term OAC Consider for CV Continue secondary prevention Supportive care CHAYO MCGRAW MD 06/17/212003: CARDIO Progress Notes Plan Plan Patient seen and examined. Agree with above nurse practitioner note. I had a long discussion with the patient, her daughter and son. At this time she has excellent rate control, does not have any significant symptoms of dys pnea. Her renal function is stable. In light of this we will defer aggressive cardioversion and continue medical therapy. If she does not have any significant improvement after adequate management of her diastolic heart failure we may consider cardioversion in an outpatient basis. Continue anticoagulation. ELEANOR HUDSON APRN Jun 17, 2021 07:29 CHAYO MCGRAW MD Jun 17, 2021 20:04
[2021-06-17] MEDS: INSULIN LISPRO 300 UNITS/3 ML VIAL. SQ SCH ×3 (08:00→17:03)
[2021-06-17] MEDS: INSULIN GLARGINE SYRINGE. SQ SCH ×2 (08:06→21:00)
[2021-06-17] MEDS: LACTOBACILLUS RHAMNOSUS GG 1 CAPSULE. PO SCH ×2 (08:06→21:00)
[2021-06-17] MEDS: OXYBUTYNIN CHLORIDE 5 MG TABLET PO SCH ×3 (08:06→21:00)
[2021-06-17] MEDS: GABAPENTIN 100 MG CAPSULE. PO SCH ×2 (08:07→21:48)
[2021-06-17] MEDS: METOPROLOL SUCC 24HR ER 50 MG TAB.ER.24H. PO SCH (08:07)
[2021-06-17] MEDS: POTASSIUM CHLORIDE 10 MEQ TABLET.ER. PO SCH ×2 (08:07→21:47)
[2021-06-17] MEDS: APIXABAN 2.5 MG TABLET PO SCH ×2 (08:07→21:47)
[2021-06-17] MEDS: AMIODARONE HCL 200 MG TABLET. PO SCH (08:07)
[2021-06-17] MEDS: PANTOPRAZOLE 40 MG TABLET. PO SCH (08:07)
[2021-06-17] MEDS: FERROUS SULFATE 325 MG TABLET. PO SCH (08:07)
[2021-06-17] MEDS: FUROSEMIDE 100 MG/10 ML VIAL IVP SCH (08:08)
[2021-06-17] MEDS: ALLOPURINOL 100 MG TABLET. PO SCH (08:08)
[2021-06-17] MEDS: CALCITRIOL 0.25 MCG CAPSULE PO SCH (08:10)
[2021-06-17 10:46] VITALS: BP 138/56
[2021-06-17 14:46] VITALS: BP 113/65
--- NOTE | 2021-06-17 16:01 | RAD ---
EXAM: CT CHEST WITHOUT CONTRAST HISTORY: Shortness of air COMPARISON: CT abdomen pelvis 06/09/2021 TECHNIQUE: Helical CT of the chest performed without contrast. Coronal and sagittal reformats were o btained. One or more of the following individualized dose reduction techniques were utilized for this examinat ion: 1. Automated exposure control 2. Adjustment of the mA and/or kV according to patient size 3. Use of iterative reconstruction technique. FINDINGS: Thyroid gland and thoracic inlet: Thyroid gland is dominant. No thoracic inlet lymph nodes.. Heart and great vessels: Heart is normal in size. There are coronary artery calcifications. Small per icardial effusion. Thoracic aorta is normal in caliber. Mild calcified aortic atherosclerosis. Mediastinum and yonas: There are small mediastinal and hilar lymph nodes, nonspecific. Calcified subca rinal lymph node. Lungs and pleura: There are mildly increased, small bilateral pleural effusions. Mild adjacent conflu ent and bandlike opacities in the lower lobes, slightly increased. Suggestion of mild interlobular se ptal thickening and groundglass opacities in the apices. Central airways are clear. There are a few s mall scattered pulmonary nodules including a 3 mm pulmonary nodule in the right upper lobe (image 27, series 2) and a few small nodular opacities in the apices. Chest wall and axillae: No axillary lymphadenopathy. Breast tissue symmetric. Upper abdomen: Upper abdomen is unremarkable. Bones: No acute osseous abnormality. IMPRESSION: 1. Mildly increased, small pleural effusions. Suggestion of mild interstitial pulmonary edema in the lung apices. Mild in the lower lobes are likely atelectasis. A component of pulmonary edema or less likely pneumonia is possible in the lower lobes. 2. 3 mm pulmonary nodule in the right upper lobe and a few small nodular opacities in the apices. In a high risk patient, optional twelve-month follow-up CT could be obtained to ensure stability. 3. Coronary artery calcifications. Electronically signed by: Sana Kumar MD (06/17/2021 3:59 PM) [id number]
[2021-06-17 17:22] LABS: BASO # 0.1 x10^3/uL (0.0-0.2); BASO % 1 % (0-3); EOS # 0.3 x10^3/uL (0.0-0.7); EOS % 4 % (0-3); HEMOGLOBIN 10.4 g/dL (12.0-15.5); LYMPH # 1.2 x10^3/uL (1.0-4.8); LYMPH % 14 % (24-48); MEAN CORPUSCULAR HEMOGLOBIN 27 pg (25-35); MEAN CORPUSCULAR HGB CONC 32 g/dL (31-37); MEAN CORPUSCULAR VOLUME 87 fL (79-100); MONO # 0.9 x10^3/uL (0.0-1.1); MONO % 11 % (0-9); NEUT # 6.1 x10^3uL (1.8-7.7); NEUT % 70 % (31-73); PLATELET COUNT 255 x10^3/uL (140-400); RED BLOOD COUNT 3.81 x10^6/uL (3.50-5.40); WHITE BLOOD COUNT 8.6 x10^3/uL (4.0-11.0)
[2021-06-17 20:00] VITALS: BP 115/58
[2021-06-17] MEDS: ATORVASTATIN CALCIUM 20 MG TABLET PO SCH (21:47)
[2021-06-17] MEDS: CLOPIDOGREL BISULFATE 75 MG TABLET PO SCH (21:48)
[2021-06-18] MEDS: LEVOTHYROXINE 50 MCG TABLET PO SCH (06:01)
[2021-06-18] MEDS: MEROPENEM 500 MG in IV NORMAL SALINE 50ML 50 ML IV SCH (06:01)
[2021-06-18 06:10] VITALS: BP 159/81
[2021-06-18] MEDS: INSULIN LISPRO 300 UNITS/3 ML VIAL. SQ SCH ×2 (08:00→12:19)
[2021-06-18] MEDS: PANTOPRAZOLE 40 MG TABLET. PO SCH (08:23)
[2021-06-18] MEDS: LACTOBACILLUS RHAMNOSUS GG 1 CAPSULE. PO SCH (08:23)
[2021-06-18] MEDS: ALLOPURINOL 100 MG TABLET. PO SCH (08:23)
[2021-06-18] MEDS: METOPROLOL SUCC 24HR ER 50 MG TAB.ER.24H. PO SCH (08:23)
[2021-06-18] MEDS: CALCITRIOL 0.25 MCG CAPSULE PO SCH (08:23)
[2021-06-18] MEDS: POTASSIUM CHLORIDE 10 MEQ TABLET.ER. PO SCH (08:24)
[2021-06-18] MEDS: APIXABAN 2.5 MG TABLET PO SCH (08:24)
[2021-06-18] MEDS: OXYBUTYNIN CHLORIDE 5 MG TABLET PO SCH (08:24)
[2021-06-18] MEDS: FERROUS SULFATE 325 MG TABLET. PO SCH (08:24)
[2021-06-18] MEDS: GABAPENTIN 100 MG CAPSULE. PO SCH (08:24)
[2021-06-18] MEDS: AMIODARONE HCL 200 MG TABLET. PO SCH (08:25)
[2021-06-18] MEDS: INSULIN GLARGINE SYRINGE. SQ SCH (08:26)
[2021-06-18] MEDS ORDERED: FUROSEMIDE 40 MG TABLET PO SCH (09:00)
--- NOTE | 2021-06-18 09:02 | PDOC ---
CARDIO Progress Notes Date & Time Date of Service DATE: 06/18/21 TIME: 08:59 Time of Evaluation 08:59 Subjective Notes Feeling well. No chest pain, dizziness, diaphoresis, or SOA. Vitals Vitals Vital Signs Date Time Temp Pulse Resp B/P (MAP) Pulse Ox O2 Delivery O2 Flow Rate FiO2 06/18/21 08:25 75 159/81 06/18/21 06:10 97.8 20 96 Room Air Weight Weight [ ] Input and Output I.O. Intake and Output 06/18/21 07:00 Intake Total 890 ml Output Total 202 ml Balance 688 ml Intake Oral 840 ml IV Total 50 ml Output Urine Total 202 ml # Voids 6 Laboratory Labs Laboratory Tests Test 06/16/21 11:55 06/16/21 17:03 06/16/21 20:23 06/17/21 05:40 Glucose (Fingerstick) 208 mg/dL (70-99) 231 mg/dL (70-99) 193 mg/dL (70-99) Sodium Level 146 mmol/L (136-145) Potassium Level 3.7 mmol/L (3.5-5.1) Chloride Level 102 mmol/L (98-107) Carbon Dioxide Level 39 mmol/L (21-32) Anion Gap 5 (6-14) Blood Urea Nitrogen 30 mg/dL (7-20) Creatinine 1.7 mg/dL (0.6-1.0) Estimated GFR (Cockcroft-Gault) 28.4 Glucose Level 166 mg/dL (70-99) Calcium Level 8.8 mg/dL (8.5-10.1) JV-Jjk-T-Type Natriuretic Peptide 8033 pg/mL (0-449) Test 06/17/21 07:35 06/17/21 11:42 06/17/21 16:59 06/17/21 17:00 Glucose (Fingerstick) 135 mg/dL (70-99) 211 mg/dL (70-99) 160 mg/dL (70-99) White Blood Count 8.6 x10^3/uL (4.0-11.0) Red Blood Count 3.81 x10^6/uL (3.50-5.40) Hemoglobin 10.4 g/dL (12.0-15.5) Hematocrit 33.0 % (36.0-47.0) Mean Corpuscular Volume 87 fL (79-100) Mean Corpuscular Hemoglobin 27 pg (25-35) Mean Corpuscular Hemoglobin Concent 32 g/dL (31-37) Red Cell Distribution Width 18.0 % (11.5-14.5) Platelet Count 255 x10^3/uL (140-400) Neutrophils (%) (Auto) 70 % (31-73) Lymphocytes (%) (Auto) 14 % (24-48) Monocytes (%) (Auto) 11 % (0-9) Eosinophils (%) (Auto) 4 % (0-3) Basophils (%) (Auto) 1 % (0-3) Neutrophils # (Auto) 6.1 x10^3uL (1.8-7.7) Lymphocytes # (Auto) 1.2 x10^3/uL (1.0-4.8) Monocytes # (Auto) 0.9 x10^3/uL (0.0-1.1) Eosinophils # (Auto) 0.3 x10^3/uL (0.0-0.7) Basophils # (Auto) 0.1 x10^3/uL (0.0-0.2) Test 06/17/21 20:14 06/18/21 07:32 Glucose (Fingerstick) 152 mg/dL (70-99) 124 mg/dL (70-99) Physical Exams HEENT: Neck Supple W Full Motion Chest: Symmetric Lungs: Other (diminished ) Heart: irregularly irregular (AFIB, rate controlled ) Abdomen: Soft N/T Extremities: Other (trace bilateral LE ) Neurology: alert, oriented, follow commands Assessment Assessment 1. Weakness 2. Recent complicated UTI; cultures with ESBL positive Escherichia coli 3. Acute on chronic diastolic CHF; Echo with preserved LV systolic function; improved s/p IV diuresis 4. PAFIB; Presently AFIB. rate controlled 5. Accelerated hypertension; trends elevated 6. Hyperlipidemia; statin 7. Diabetes, II 8. THELMA on CKD; Cr 1.7 9. Hypothyroidism 10. Transaminitis Recommendations Oral Lasix therapy QOD Metoprolol for rate control Add amlodipine for BP control Continue Amiodarone Eliquis for stroke prophylaxis Consider for outpatient CV Continue secondary prevention Ongoing antibiotic therapy, treatment of UTI as per IM Supportive care Follow up in our office with Dr. Fernando as scheduled ELEANOR HUDSON APRN Jun 18, 2021 09:02
[2021-06-18] MEDS ORDERED: amLODIPine BESYLATE 5 MG TABLET PO SCH (09:15)
[2021-06-18 10:41] VITALS: BP 159/81
[2021-06-18] MEDS ORDERED: FURO-68 PO (11:23)
[2021-06-18] MEDS ORDERED: AMLO5TAB4 PO (11:23)
--- OUTSIDE RECORDS SUMMARY | 2021-06-18 12:09 | XMS REPORT ---
Author Author [facility]ician [facility] Organization [facility] Physician [facility] Address Unknown Phone Unavailable Care Team Providers Care Nickel Plant Operator Name Role Phone JADYNOLIVACHAYO Unavailable [phone] PROBLEMS No Information ALLERGIES No Information IMMUNIZATIONS No Information SOCIAL HISTORY Sex Assigned At : Social History Observation Description Sex Assigned At Unknown REASON FOR REFERRAL from 1935 to 2021-06-18 Reason [facility] Quality measure Referral Organization [facility] Referring Provider First Name CHAYO Referring Provider Last Name MARILUZ Referring Provider Specialty Cardiovascular Disease Referred Provider N/A, [email or web address] Referred Provider Specialty Cardiology Referral Priority Routine VITAL SIGNS No information MEDICATIONS No Information PROCEDURES No Information RESULTS No Results REASON FOR VISIT HOSP FU/ discuss cardioversion Goals Section No Information Health Concerns No Information MEDICAL EQUIPMENT No Information MENTAL STATUS No Information FUNCTIONAL STATUS No Information ASSESSMENTS No Information PLAN OF TREATMENT Referrals Referral Date Details [facility] Quality measure Next Appt Details Provider Name:CHAYO Chrissy MCGRAW, 202 12-04-27 03:00:00 PM, [address], [address], [place], [address], Insurance Providers Payer Name Payer Address Payer Phone Insured Name Patient Relati onship to Insured Coverage Start Date Coverage End Date Medicare NICOLE Wy [place] [address] [facility] [phone] Fernando Barnes self
--- NOTE | 2021-06-18 12:33 | NUR ---
discharge note Pt discharged at 1230 via wheelchair accompanied by family member.pt given written and verbal instructions with verbal statement of understanding received
--- NOTE | 2021-06-18 17:54 | DS ---
DATE OF DISCHARGE: 06/18/2021 ATTENDING PHYSICIAN: Dr. Pimentel. FINAL DISCHARGE DIAGNOSES: 1. Multiple drug resistant Escherichia coli infection. 2. Atrial fibrillation with controlled ventricular rate. 3. Chronic anticoagulation. 4. Essential hypertension. 5. Hyperlipidemia. 6. Type 2 diabetes. 7. Chronic kidney disease. 8. Hypothyroidism, on replacement. HISTORY AND PHYSICAL: The patient is an 86-year-old female recently moved here from [place]. Her daughter lives in town. Her son is a physician in [place], [place]. 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 PHYSICAL EXAMINATION: Please see the dictated note. PERTINENT LABORATORY AND X-RAY STUDIES: Prior to discharge, her hemoglobin is stable at 10.4 g/dL, blood sugars were in the low 100s. Urine culture from last admission was noted with sensitivities. COURSE IN THE HOSPITAL: The patient was admitted. Cardiology consultation was obtained. Their recommendation is on the chart. We continued anticoagulation. They recommended everyday Lasix. Her son suggested every other day, which I felt was reasonable. Because of the refractory nature of the infection, we elected to keep the midline catheter in and arrange for home health. Arrangements were made for meropenem 3 times a day to be administered through home health. She will continue her allopurinol, amiodarone 200 mg daily, Eliquis 2.5 mg b.i.d., Lipitor, Lasix every other day, Plavix, ferrous sulfate, Neurontin, insulin as scheduled, Synthroid 50 mcg, metoprolol, oxybutynin, Protonix and potassium supplementation. For now, we held her hydrochlorothiazide. She will have a followup visit with her hydro excavation operator next week. She was discharged then from our hospital in stable condition with explicit drug and followup care. She is a DNR per advanced directive. Her prognosis is fair. Total discharge time spent 39 minutes. AMANDA/ERINN/TREASURE DE [place]ANT[place]: AMANDA/jie TID: [id number] CC:
--- NOTE | 2021-06-18 20:27 | PN ---
DATE: 06/17/2021 ATTENDING PHYSICIAN: Dr. Pimentel. SUBJECTIVE: Feeling better. No new complaints. OBJECTIVE FINDINGS: VITAL SIGNS: Blood pressure is 115/58, pulse is 62 and controlled. Room air sats 92%. She is afebrile. HEENT: Head is without trauma. Pupils are reactive. NECK: Supple. LUNGS: Clear. CARDIOVASCULAR: Showed regular heart tones. No gallops. ABDOMEN: Soft. EXTREMITIES: Show 2+ edema. NEUROLOGIC: Focally intact. Urinalysis reviewed. Cardiology consultation appreciated. ASSESSMENT: 1. An 86-year-old female recently moved here with multiple drug resistant Escherichia coli infection. 2. Atrial fibrillation with controlled ventricular rate. 3. Hypertension. 4. Type 2 diabetes. 5. Chronic kidney disease. 6. Hypothyroidism. 7. Transaminitis due to congestive hepatomegaly. PLAN: 1. Tentative plans for outpatient IV antibiotics with meropenem. 2. Diuresis per Cardiology. 3. Continue anticoagulation. 4. Tentative discharge plans for tomorrow, 06/18/2021. ELGIN DR: Fred TID: [id number]
== END 2021-06-18 12:34 | disposition home or self-care (01) | DRG 291 ==
LOC: 1 SOUTH 15:30
PROVIDERS: ADMIT Internal Medicine; ATTEND Internal Medicine
DX: I13.0 Hypertensive heart and chronic kidney disease with heart failure and stage 1 through stage 4 chronic kidney disease, or unspecified chronic kidney disease (principal); I50.33 Acute on chronic diastolic (congestive) heart failure; N17.9 Acute kidney failure, unspecified; N39.0 Urinary tract infection, site not specified; Z16.24 Resistance to multiple antibiotics; B96.20 Unspecified Escherichia coli [E. coli] as the cause of diseases classified elsewhere; E03.9 Hypothyroidism, unspecified; E11.22 Type 2 diabetes mellitus with diabetic chronic kidney disease; E78.5 Hyperlipidemia, unspecified; I48.0 Paroxysmal atrial fibrillation; F41.9 Anxiety disorder, unspecified; J44.9 Chronic obstructive pulmonary disease, unspecified; K76.1 Chronic passive congestion of liver; N18.9 Chronic kidney disease, unspecified; Z66 Do not resuscitate; Z79.01 Long term (current) use of anticoagulants; Z79.899 Other long term (current) drug therapy; Z82.49 Family history of ischemic heart disease and other diseases of the circulatory system; Z87.440 Personal history of urinary (tract) infections; Z90.710 Acquired absence of both cervix and uterus; Z98.41 Cataract extraction status, right eye; Z98.42 Cataract extraction status, left eye; Z90.722 Acquired absence of ovaries, bilateral; G47.33 Obstructive sleep apnea (adult) (pediatric); K21.9 Gastro-esophageal reflux disease without esophagitis
CPT/HCPCS: 36415; 71045; 71250; 80048; 80053; 82947; 83880; 85025; 93306; J1335; J1815; J1940; J2185; 97110; 97530

== ENCOUNTER → 2021-06-29 | Outpatient (CLI) | payer MEDICARE, BC ==
[2021-06-17 20:00] VITALS: BP 115/58
[~2021-06-29] MED LIST changes: +AMLO5TAB4 PO; +FURO-68 PO
[2021-06-29 12:21] LABS: GLUCOSE,URINE NEG (NEG)
[2021-06-29 12:22] LABS: BILIRUBIN,URINE NEG (NEG); NITRITE,URINE NEG (NEG)
[2021-06-29 12:42] LABS: CLARITY,URINE HAZY; COLOR,URINE STRAW
[2021-06-29 12:43] LABS: UROBILINOGEN,URINE 0.2 mg/dL (0.2 mg/dL)
[2021-06-29 12:44] LABS: BACTERIA,URINE MOD /HPF (0-FEW); SQUAMOUS EPITHELIAL CELL,UR FEW /LPF; WBC,URINE >40 /HPF (0-4)
== END ==
LOC: SPEC 11:09
PROVIDERS: ATTEND Family Medicine
DX: N39.0 Urinary tract infection, site not specified (principal)
CPT/HCPCS: 81001; 87086

== ENCOUNTER 2021-11-20 17:40 | Inpatient (IN) | payer MEDICARE, BC ==
[~2021-11-20] VITALS: Ht 162.6 cm; Wt 90.4 kg
[~2021-11-20 17:40] MED LIST changes: +AMIO200T54 PO; -AMIO200T6 PO; +LEVO750T5 PO; +POTA-112 PO; -POTA10TA5 PO; +RIVA15TA PO
--- NOTE | 2021-11-20 18:11 | PHYS DOC ---
Past History Past Medical History: Anxiety, Arthritis, CAD, CHF, COPD, Heart Disease, TIA, UTI (LESLEY URBINA MD) Past Surgical History: Other (LESLEY URBINA MD) Alcohol Use: None (LESLEY URBINA MD) General Adult EDM: Chief Complaint: ALTERED MENTAL STATUS HPI: HPI: (This is a duplication of record. See alternate reports under same name. ) Patient is a 86 year old female who presents with syncope and altered mental status. Pt. just discharge from ED- after evaluation by Dr. Orourke. Pt Discharge home, but returned with Hypotension and decresed mental status. Pt. require NRBM. Pt. very weak and unable to stand or assist with movement.. Patient has history of outpatient heart cath at [facility] yesterday by and was discharged home with similar episode of decompensation, mental status change, CHF exacerbation. Pt. spent the last 24 hrs. in ED getting diuresis and treatment for UTI and possible urosepsis. No rooms were available for admission to ICU or telemetry during previous stay 2 hours ago. Patient has past medical history of acute on chronic diastolic heart failure, three-vessel coronary artery disease with stents LAD and RCA, urosepsis, hypertension, diabetes, hyperlipidemia, abdomen aortic aneurysm, A. fib, chronic kidney disease, hypothyroidism and deconditioning. Patient said no recent travel. No specific ill contacts. Normally follows with Dr. Abhinav Graves. (LESLEY URBINA MD) Review of Systems: Review of Systems: Constitutional: Complains of fever or chills Eyes: Denies change in visual acuity HENT: Denies nasal congestion or sore throat Respiratory: Complains of shortness of breath Cardiovascular: Denies chest pain or edema GI: Denies abdominal pain, , bloody stools or diarrhea . Complains of nausea and vomiting : Denies dysuria Musculoskeletal: Complains of generalized weakness and fatigue Integument: Denies rash Neurologic: Denies headache, focal weakness or sensory changes Endocrine: Denies polyuria or polydipsia Lymphatic: Denies swollen glands Psychiatric: Complains of anxiety (LESLEY URBINA MD) Family History: Family History: Noncontributory to presentation (LESLEY URBINA MD) Current Medications: Current Meds: See nursing for home meds (LESLEY URBINA MD) Allergies: Allergies: Allergies Coded Allergies Type Severity Reaction Last Updated Verified NKMA Allergy Unknown 11/20/21 Yes Uncoded Allergies Type Severity Reaction Last Updated Verified CONTACT ISOLATION Adverse Reaction Unknown 06/12/21 (LESLEY URBINA MD) Physical Exam: PE: Constitutional: in acute distress, ill appearance. [] HENT: Normocephalic, atraumatic, bilateral external ears normal, oropharynx moist, no oral exudates, nose normal. [] Eyes: PERRLA, EOMI, conjunctiva normal, no discharge. [] Neck: More than 17 inches circumference JVD,, no tenderness, supple, no stridor. [] Cardiovascular: Tachycardia heart rate irregular regular rhythm, BMI to the left. Bedside monitor shows irregular rhythm consistent morphology with A. fib. 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 Lungs & Thorax: Bilateral breath sounds equal at at apex ,but scattered wheezes, diffuse crackles, decreased breath sounds in right base, rhonchi on auscultation [] Abdomen: Bowel sounds decreased, soft, no tenderness, no masses, no pulsatile masses. Obese. Old scars. Incontinence Skin: Warm, diaphoretic, no erythema, no rash. Poor turgor Back: No tenderness, no CVA tenderness. [] Extremities: No tenderness, no cyanosis, no clubbing, ROM intact, lower leg edema. [] Neurologic: Alert to name,, moves extremities but very weak, does have distal sensory,, no focal deficits noted. [] Psychologic: Affect anxious, judgement impaired, mood depressed (LESLEY URBINA MD) Current Patient Data: Labs: Laboratory Tests Test 11/20/21 17:55 Glucose (Fingerstick) 149 mg/dL (70-99) H (LESLEY URBINA MD) EKG: EKG: My interpretation EKG prior to discharge from emergency department shows a A. fib rhythm with a ventricular rate of 90 bpm. Left axis deviation. Anterior septal strain pattern and prolonged QT at 392 ms and a QTC at 484 ms. Time of EKG is 2251 [] My interpretation of EKG upon return to the ER shows a A. fib rhythm with left axis deviation and anterior fascicular block. Ventricular rate at 94 bpm. Prolonged QT interval of 390 ms and QTC 488 ms. Time of EKG is 1833 hrs. (LESLEY URBINA MD) Radiology/Procedures: Radiology/Procedures: [address] [address] IMAGING REPORT Signed PATIENT: BRENDON PELAEZ ACCOUNT: [id number] : 1935 LOCATION: ER AGE: 86 SEX: F EXAM STATUS: REG ER ORD. PHYSICIAN: LESLEY URBINA MD REASON: syncope, had non-contrast CT yesterday PROCEDURE: CT ANGIOGRAPHY CHEST INDICATION: Reason: syncope, had non-contrast CT yesterday / Spl. Instructions: / History: COMPARISON: Chest x-ray from previous day TECHNIQUE: Axial CT images obtained through the chest. Intravenous contrast utilized. Angiogram 3D images processed per protocol. One or more of the following individualized dose reduction techniques were utilized for this examination: 1. Automated exposure control; 2. Adjustment of the mA and/or kV according to patient size; 3. Use of iterative reconstruction technique. FINDINGS: Groundglass opacities in the bilateral lungs. Consolidation is seen within the lungs bilaterally as well as small left and moderate right pleural effusion. Interstitial opacities bilaterally. Patchy nodular and groundglass opacities. Heart is enlarged. Calcific atherosclerosis. Periportal edema at the partially visualized liver. Coronary artery calcific atherosclerosis. There are some enlarged lymph nodes in the mediastinum. Low-density left thyroid nodule is suspected measuring approximately 17 mm. Atherosclerotic disease throughout thoracic aorta. Degenerative changes the spine. Patient motion as well as regions of airspace consolidation limited evaluation for pulmonary embolus but no embolus is seen in the main, right main or left main pulmonary artery. Peripheral vessels are obscured by motion and consolidation. Scoliotic curvature of spine. IMPRESSION: No embolus in the main pulmonary arteries with peripheral vessels obscured by motion. Right greater than left pleural effusion with adjacent airspace consolidation which could be from atelectasis or infiltrate. Follow-up could be obtained to ensure this appropriately resolves. There is also some nodular and groundglass opacities which could be infectious or inflammatory in nature with a component of edema not excluded. Enlarged heart with severe calcific atherosclerosis. Mediastinal lymphadenopathy. Could be reactive to the lung process but follow-up could be obtained to ensure that there is no growth to exclude neoplastic causes. Thyroid nodule Electronically signed by: Olu Jones MD (11/20/2021 7:44 PM) DESKTOP- [id number] DICTATED AND SIGNED BY: OLU JONES MD DATE: 11/20/211931 CC: LESLEY URBINA MD; ALEXANDER GRAVES ~MTH0 0 [][address] [address] IMAGING REPORT Signed PATIENT: BRENDON PELAEZ ACCOUNT: [id number] : 1935 LOCATION: ER AGE: 86 SEX: F EXAM STATUS: REG ER ORD. PHYSICIAN: LESLEY URBINA MD REASON: syncope, had non-contrast CT yesterday PROCEDURE: CT ANGIOGRAPHY HEAD CTA HEAD History: syncope, had non-contrast CT yesterday Technique: A noncontrast CT of the head was performed. Then, after bolus of intravenous contrast, volumetric CT data acquisition was acquired of the head. Multiplanar reconstruction images to include MIP and 3-D reconstruction images are submitted. Comparison: None Any determination of stenosis is based on NASCET criteria. Noncontrast CT head: No intracranial hemorrhage. No mass effect. No hydrocephalus. Prominence of the ventricles and sulci with ex vacuo enlargement of the left lateral ventricle occipital horn. Postsurgical changes of the lenses. Orbits are otherwise unremarkable. Imaged paranasal sinuses and mastoid air cells are clear. CT Angiogram head: Evaluation is limited due to motion artifact and reduce contrast dosing. ICA: No stenosis, occlusion or aneurysm. MCA: No stenosis, occlusion or aneurysm. DRAKE: No stenosis, occlusion or aneurysm. EKG TECH: No stenosis, occlusion or aneurysm. Basilar artery: No stenosis, occlusion or aneurysm. Distal vertebral arteries: No stenosis, occlusion or aneurysm. Dominant left ve rtebral artery. Impression: 1. No acute intracranial findings. Old left occipital infarct. 2. No significant arterial stenosis, occlusion or aneurysm within the head. Exposure: One or more of the following individualized dose reduction techniques were utilized for this examination: 1. Automated exposure control 2. Adjustment of the mA and/or kV according to patient size 3. Use of iterative reconstruction technique. Electronically signed by: Edgar Betts MD (11/20/2021 7:25 PM) [facility] DICTATED AND SIGNED BY: EDGAR BETTS MD DATE: 11/20/211918 CC: LESELY URBINA MD; ALEXANDER GRAVES ~MTH0 0 (LESLEY URBINA MD) Heart Score: C/O Chest Pain: Yes HEART Score for Chest Pain: HEART Score for Chest Pain Response (Comments) Value History Highly Suspicious [address] Depression 2 Age > 65 2 Risk Factors >3 Risk Factors or Hx CAD 2 Troponin >3 x Normal Limit 2 Total 10 Risk Factors: Risk Factors: DM, Current or recent (<one month) smoker, HTN, HLP, family history of CAD, obesity. Risk Scores: Score 0 - 3: 2.5% MACE over next 6 weeks - Discharge Home Score 4 - 6: 20.3% MACE over next 6 weeks - Admit for Clinical Observation Score 7 - 10: 72.7% MACE over next 6 weeks - Early Invasive Strategies (LESLEY URBINA MD) Course & Med Decision Making: Course & Med Decision Making Pertinent Labs and Imaging studies reviewed. (See chart for details) Pt. endorsed to Dr. Greco at shift change. Plan have re-consult with cardiology while in ED if not admitted to room. Continue Rocephin. Critical care time 90 minutes-BiPAP management. Multiple calls were attempted placement. Impression: 1. Altered mental status 2 H ypotension 3. CHF diastolic dysfunction- BNP earlier 7,017 To night 15,181 on return to ED 4. Status post heart cath at [facility] 11/19 5. Renal Insuf. 54 BUN/2.4 Creat. 6. Diabetes= Gluc. 167 7. Elevated Trope 106 8. Anemia Hgb 11.2 9. Urinary tract infection 10. Hyperkalemia 5.5 11. Leukocytosis 13.3 12. Respiratory Failure- Hyper cardia and hypoxia [] (LESLEY URBINA MD) Alvino Disclaimer: Dragon Disclaimer: This electronic medical record was generated, in whole or in part, using a voice recognition dictation system. (LESLEY URBINA MD) Alvino Disclaimer: I assumed care of patient after comprehensive signout from off going physician. 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 Confirmed need for ongoing Plavix and Xarelto use inpatient status post PCI There is confusion as to where patient was being admitted to given current COVID-19 pandemic and at capacity hospitals in entire [facility], patient accepted under the care of Dr. Chapa (EFREM GRECO DO) Alvino Disclaimer This chart was dictated in whole or in part using Voice Recognition software in a busy, high-work load, and often noisy Emergency Department environment. It may contain unintended and wholly unrecognized errors or omissions. (LESLEY URBINA MD) Departure Departure: Impression: Primary Impression: Sepsis Additional Impressions: UTI (urinary tract infection) CHF (congestive heart failure) Elevated troponin Disposition: ADMITTED INPATIENT Admitting Physician: Kuldeep Chapa (EFREM GRECO DO) Condition: STABLE Referrals: ALEXANDER GRAVES (PCP) Alvino Disclaimer This chart was dictated in whole or in part using Voice Recognition software in a busy, high-work load, and often noisy Emergency Department environment. It may contain unintended and wholly unrecognized errors or omissions. (LESLEY URBINA MD) LESLEY URBINA MD Nov 20, 2021 18:11 EFREM GRECO DO Nov 21, 2021 14:20
[2021-11-20] MEDS ORDERED: CIPROFLOXACIN 400MG PREMIX 200 ML IV ONE (18:15)
[2021-11-20] MEDS ORDERED: IOHEXOL 350 MG/ML 100 ML VIAL. IV ONE (18:30)
[2021-11-20 18:34] LABS: BASO # 0.1 x10^3/uL (0.0-0.2); BASO % 1 % (0-3); EOS % 0 % (0-3); HEMATOCRIT 37.3 % (36.0-47.0); HEMOGLOBIN 11.2 g/dL (12.0-15.5); LYMPH # 1.6 x10^3/uL (1.0-4.8); LYMPH % 12 % (24-48); MEAN CORPUSCULAR HEMOGLOBIN 27 pg (25-35); MEAN CORPUSCULAR HGB CONC 30 g/dL (31-37); MEAN CORPUSCULAR VOLUME 90 fL (79-100); MONO # 1.5 x10^3/uL (0.0-1.1); MONO % 11 % (0-9); NEUT # 10.1 x10^3uL (1.8-7.7); NEUT % 76 % (31-73); PLATELET COUNT 221 x10^3/uL (140-400); RED BLOOD COUNT 4.17 x10^6/uL (3.50-5.40); RED CELL DISTRIBUTION WIDTH 19.1 % (11.5-14.5); WHITE BLOOD COUNT 13.3 x10^3/uL (4.0-11.0)
[2021-11-20 18:45] LABS: CALCIUM 8.5 mg/dL (8.5-10.1); CREATININE 2.4 mg/dL (0.6-1.0); GFR 19.1
[2021-11-20] MEDS ORDERED: CONTRAST GIVEN. MC PRN (18:45)
[2021-11-20 18:55] LABS: ALBUMIN 3.1 g/dL (3.4-5.0); DIRECT BILIRUBIN 0.6 mg/dL (0.0-0.2); MAGNESIUM 2.5 mg/dL (1.8-2.4); TOTAL BILIRUBIN 1.2 mg/dL (0.2-1.0); TOTAL PROTEIN 6.4 g/dL (6.4-8.2)
[2021-11-20 18:56] LABS: POTASSIUM 5.5 mmol/L (3.5-5.1)
[2021-11-20] MEDS ORDERED: cefTRIAXone SODIUM 1 GM VIAL ONE (19:07)
[2021-11-20] MEDS ORDERED: IV NORMAL SALINE 50ML 50 ML ONE (19:07)
[2021-11-20 19:10] LABS: BACTERIA,URINE MANY /HPF (0-FEW); BILIRUBIN,URINE NEG (NEG); CLARITY,URINE CLOUDY; COLOR,URINE YELLOW; GLUCOSE,URINE NEG (NEG); NITRITE,URINE NEG (NEG); RBC,URINE 20-40 /HPF (0-2); SQUAMOUS EPITHELIAL CELL,UR FEW /LPF; UROBILINOGEN,URINE 0.2 mg/dL (0.2 mg/dL); WBC,URINE TNTC /HPF (0-4)
--- NOTE | 2021-11-20 19:28 | RAD ---
CTA HEAD History: syncope, had non-contrast CT yesterday Technique: A noncontrast CT of the head was performed. Then, after bolus of intravenous contrast, vol umetric CT data acquisition was acquired of the head. Multiplanar reconstruction images to include CT P and 3-D reconstruction images are submitted. Comparison: None Any determination of stenosis is based on NASCET criteria. Noncontrast CT head: No intracranial hemorrhage. No mass effect. No hydrocephalus. Prominence of the ventricles and sulci with ex vacuo enlargement of the left lateral ventricle occipital horn. Postsurgical changes of the lenses. Orbits are otherwise unremarkable. Imaged paranasal sinuses and mastoid air cells are clear. CT Angiogram head: Evaluation is limited due to motion artifact and reduce contrast dosing. ICA: No stenosis, occlusion or aneurysm. MCA: No stenosis, occlusion or aneurysm. DRAKE: No stenosis, occlusion or aneurysm. CHIEF OPERATOR LOCK TENDER: No stenosis, occlusion or aneurysm. Basilar artery: No stenosis, occlusion or aneurysm. Distal vertebral arteries: No stenosis, occlusion or aneurysm. Dominant left vertebral artery. Impression: 1. No acute intracranial findings. Old left occipital infarct. 2. No significant arterial stenosis, occlusion or aneurysm within the head. Exposure: One or more of the following individualized dose reduction techniques were utilized for thi s examination: 1. Automated exposure control 2. Adjustment of the mA and/or kV according to patient size 3. Use of iterative reconstruction technique. Electronically signed by: Edgar Nair MD (11/20/2021 7:25 PM) [facility]
[2021-11-20] MEDS ORDERED: FUROSEMIDE 40 MG/4 ML VIAL IVP ONE (19:30)
--- NOTE | 2021-11-20 19:46 | RAD ---
INDICATION: Reason: syncope, had non-contrast CT yesterday / Spl. Instructions: / History: COMPARISON: Chest x-ray from previous day TECHNIQUE: Axial CT images obtained through the chest. Intravenous contrast utilized. Angiogram 3D images proce ssed per protocol. One or more of the following individualized dose reduction techniques were utilized for this examinat ion: 1. Automated exposure control; 2. Adjustment of the mA and/or kV according to patient size; 3 . Use of iterative reconstruction technique. FINDINGS: Groundglass opacities in the bilateral lungs. Consolidation is seen within the lungs bilaterally as well as small left and moderate right pleural e ffusion. Interstitial opacities bilaterally. Patchy nodular and groundglass opacities. Heart is enlarged. Calcific atherosclerosis. Periportal edema at the partially visualized liver. Coronary artery calcific atherosclerosis. There are some enlarged lymph nodes in the mediastinum. Low-density left thyroid nodule is suspected measuring approximately 17 mm. Atherosclerotic disease throughout thoracic aorta. Degenerative changes the spine. Patient motion as well as regions of airspace consolidation limited evaluation for pulmonary embolus but no embolus is seen in the main, right main or left main pulmonary artery. Peripheral vessels are obscured by motion and consolidation. Scoliotic curvature of spine. IMPRESSION: No embolus in the main pulmonary arteries with peripheral vessels obscured by motion. Right greater than left pleural effusion with adjacent airspace consolidation which could be from ate lectasis or infiltrate. Follow-up could be obtained to ensure this appropriately resolves. There is a lso some nodular and groundglass opacities which could be infectious or inflammatory in nature with a component of edema not excluded. Enlarged heart with severe calcific atherosclerosis. Mediastinal lymphadenopathy. Could be reactive to the lung process but follow-up could be obtained to ensure that there is no growth to exclude neoplastic causes. Thyroid nodule Electronically signed by: Aaron Jones MD (11/20/2021 7:44 PM) [id number]
[2021-11-20 20:11] LABS: BGAS PH 7.33 (7.35-7.45)
--- NOTE | 2021-11-20 23:27 | RAD ---
XR CHEST 1V History: Dyspnea Comparison: CT chest 11/20/2021 Technique: Portable AP radiograph of the chest. Findings: Are hypoinflated. There are bilateral airspace opacities and moderate right, small left pleural effus ion. No pneumothorax. Enlarged cardiac silhouette and prominent pulmonary vasculature. Osseous struct ures and soft tissues are unremarkable. Impression: 1. Bilateral pleural effusions and airspace opacities which may represent compressive atelectasis, p ossible superimposed infection. Electronically signed by: Edgar Nair MD (11/20/2021 11:24 PM) [facility]
[2021-11-21 04:42] LABS: CALCIUM 8.1 mg/dL (8.5-10.1); CREATININE 2.4 mg/dL (0.6-1.0); GFR 19.1
[2021-11-21 04:54] LABS: ALBUMIN 2.7 g/dL (3.4-5.0); ALBUMIN/GLOBULIN RATIO 0.8 (1.0-1.7); TOTAL BILIRUBIN 0.6 mg/dL (0.2-1.0)
[2021-11-21 04:56] LABS: POTASSIUM 4.2 mmol/L (3.5-5.1)
[2021-11-21] MEDS ORDERED: CLOPIDOGREL BISULFATE 75 MG TABLET PO ONE (12:00)
[2021-11-21] MEDS ORDERED: INSULIN LISPRO 300 UNITS/3 ML VIAL. SQ ONE ×2 (12:45→12:47)
[2021-11-21] MEDS: BUMETANIDE 1 MG/4 ML VIAL. IVP SCH (13:38)
[2021-11-21] MEDS: RIVAROXABAN 15 MG TABLET. PO SCH (13:39)
[2021-11-21] MEDS ORDERED: NITROGLYCERIN SUBLINGUAL 0.4 MG BOTTLE OF 25. SL PRN (13:45)
[2021-11-21] MEDS ORDERED: ACETAMINOPHEN 325 MG TABLET PO PRN (13:45)
[2021-11-21 19:52] LABS: BASO % 1 % (0-3); EOS # 0.1 x10^3/uL (0.0-0.7); EOS % 2 % (0-3); HEMATOCRIT 31.3 % (36.0-47.0); HEMOGLOBIN 9.9 g/dL (12.0-15.5); LYMPH # 0.7 x10^3/uL (1.0-4.8); LYMPH % 7 % (24-48); MEAN CORPUSCULAR HEMOGLOBIN 27 pg (25-35); MEAN CORPUSCULAR HGB CONC 32 g/dL (31-37); MEAN CORPUSCULAR VOLUME 86 fL (79-100); MONO # 0.7 x10^3/uL (0.0-1.1); MONO % 7 % (0-9); NEUT # 7.5 x10^3uL (1.8-7.7); NEUT % 83 % (31-73); PLATELET COUNT 150 x10^3/uL (140-400); RED BLOOD COUNT 3.64 x10^6/uL (3.50-5.40); RED CELL DISTRIBUTION WIDTH 18.2 % (11.5-14.5)
[2021-11-21 20:04] LABS: CALCIUM 7.7 mg/dL (8.5-10.1); CREATININE 2.5 mg/dL (0.6-1.0); GFR 18.2; POTASSIUM 3.9 mmol/L (3.5-5.1)
[2021-11-21] MEDS ORDERED: IV NORMAL SALINE 50ML 50 ML ONE (20:58)
[2021-11-21] MEDS ORDERED: cefTRIAXone SODIUM 1 GM VIAL ONE (20:59)
[2021-11-21] MEDS: INSULIN GLARGINE SYRINGE. SQ SCH (21:00)
--- NOTE | 2021-11-22 03:14 | EKG ---
[facility] [address] [place] [address] Test Date: 2021-11-22 Test Time: 01:14:44 Pat Name: BRENDON PELAEZ Department: Room: Gender: F Fisher Dip Net: CAMILA : [id number] Requested By: LESLEY URBINA Order Number: [id number] Reading MD: Too Fernando MD Measurements Intervals [place] Rate: 79 P: ID: QRS: [id number] QRSD: 90 T: 89 QT: 422 QTc: 485 Interpretive Statements PROBABLE ATRIAL FIBRILLATION LAD POOR R WAVE PROGRESSION Electronically Signed On 11-23-2021 9:27:[address] by Too Fernando MD
[2021-11-22] MEDS ORDERED: LEVOTHYROXINE 100 MCG TABLET PO SCH (06:00)
--- NOTE | 2021-11-22 06:21 | RAD ---
AP chest x-ray HISTORY: Shortness of breath. COMPARISON: Chest x-ray November 20, 2021 FINDINGS: Mild cardiomegaly stable. Mediastinal silhouette is normal. No pneumothorax. Moderate pleur al effusion is stable. Pulmonary interstitial and alveolar infiltrates likely edema again demonstrate d asymmetric density right lung base could be asymmetric edema or superimposed pneumonia. IMPRESSION: Pulmonary edema and mild right pleural effusion is stable. Asymmetric density right lung base could be asymmetric edema versus superimposed pneumonia also stable. Electronically signed by: Mohan Arevalo MD (11/22/2021 6:18 AM) [facility]
[2021-11-22 07:48] LABS: BASO % 0 % (0-3); EOS # 0.2 x10^3/uL (0.0-0.7); EOS % 3 % (0-3); HEMATOCRIT 31.8 % (36.0-47.0); LYMPH # 0.5 x10^3/uL (1.0-4.8); LYMPH % 7 % (24-48); MEAN CORPUSCULAR HEMOGLOBIN 27 pg (25-35); MEAN CORPUSCULAR HGB CONC 32 g/dL (31-37); MEAN CORPUSCULAR VOLUME 86 fL (79-100); MONO # 0.6 x10^3/uL (0.0-1.1); MONO % 8 % (0-9); NEUT # 6.3 x10^3uL (1.8-7.7); NEUT % 82 % (31-73); PLATELET COUNT 152 x10^3/uL (140-400); RED BLOOD COUNT 3.69 x10^6/uL (3.50-5.40); RED CELL DISTRIBUTION WIDTH 18.1 % (11.5-14.5); WHITE BLOOD COUNT 7.7 x10^3/uL (4.0-11.0)
[2021-11-22 07:56] LABS: CALCIUM 8.3 mg/dL (8.5-10.1); CREATININE 2.2 mg/dL (0.6-1.0); GFR 21.1; POTASSIUM 3.8 mmol/L (3.5-5.1)
[2021-11-22 08:07] LABS: ALBUMIN 2.7 g/dL (3.4-5.0); ALBUMIN/GLOBULIN RATIO 0.8 (1.0-1.7); TOTAL BILIRUBIN 0.5 mg/dL (0.2-1.0); TOTAL PROTEIN 6.1 g/dL (6.4-8.2)
[2021-11-22] MEDS: INSULIN GLARGINE SYRINGE. SQ SCH ×2 (09:24→20:59)
[2021-11-22] MEDS: METOPROLOL SUCC 24HR ER 25 MG TAB.ER.24H. PO SCH (09:27)
[2021-11-22] MEDS: amLODIPine BESYLATE 5 MG TABLET PO SCH (09:28)
[2021-11-22] MEDS: PANTOPRAZOLE 40 MG TABLET. PO SCH (09:28)
[2021-11-22] MEDS: BUMETANIDE 1 MG/4 ML VIAL. IVP SCH ×3 (09:30→16:34)
[2021-11-22] MEDS: AMIODARONE HCL 200 MG TABLET. PO SCH (11:37)
[2021-11-22] MEDS: POTASSIUM CHLORIDE 10 MEQ TABLET.ER. PO SCH ×3 (11:38→21:00)
[2021-11-22] MEDS: LEVOTHYROXINE 50 MCG TABLET PO SCH (11:38)
--- NOTE | 2021-11-22 14:30 | PDOC ---
PROGRESS NOTES Date of Service DOS: DATE: 11/22/21 TIME: 14:21 Diagnosis Problem Problems Medical Problems: (1) CHF (congestive heart failure) Status: Acute (2) Elevated troponin Status: Acute (3) Sepsis Status: Acute (4) UTI (urinary tract infection) Status: Acute Assessment 1. Recurrent acute on chronic diastolic heart failure: Continue gentle diuresis with close monitoring of renal function. Recent 2D echo in May 2021 showed normal left ventricular systolic function with EF 55 to 60%. 2. Coronary artery disease s/p PCI/stents placement to LAD and RCA in the past and more recent PCI/JOSSELYN to distal RCA. The previously placed stents were patent. Her troponin level is slightly elevated, most with demand ischemia/type II non-STEMI. Continue current secondary prevention measures. 3. Hypertension: Controlled 4. Hyperlipidemia 5. Atrial fibrillation, rate controlled. Continue amiodarone and Xarelto and consider outpatient cardioversion 6. DM2, chronic kidney disease: Treat per IM 7. Acute on chronic renal insufficiency: Consider nephrology consultation 8. Hypothyroidism: Continue levothyroxine 9. Transaminitis: Probably secondary to CHF -hold statins for now Subjective 86-year-old female with history of coronary artery disease recently underwent right and left heart catheterization and PCI/JOSSELYN to RCA 11/19/2021. She was discharged with plans for increasing the dose of her Lasix in 1 week secondary to elevated LVEDP. She however presented later that night with progressive shortness of breath and was found to be in acute on chronic diastolic heart failure. She responded very well to intravenous Lasix. Since she was also found to have UTI, she was discharged on Levaquin in addition to increased dose of Lasix on 11/20/2021. She presented back again with shortness of breath and not feeling well. She denied any chest pain, palpitations or syncope. She denied any excessive salt or fluid intake. Objective Vital Signs Date Time Temp Pulse Resp B/P (MAP) Pulse Ox O2 Delivery O2 Flow Rate FiO2 11/22/21 11:37 85 123/54 11/22/21 07:05 26 97 High Flow Nasal Cannula 8.0 11/21/21 23:05 97.9 Intake and Output 11/22/21 07:00 Intake Total 50 ml Balance 50 ml Intake IV Total 50 ml Abdomen: Soft, No tenderness Heart: Other (Heart rate irregular) Extremities: No edema General: Alert HEENT: PERRLA Lungs: Other (Bilateral basal crepitations) Neuro: Normal speech Psych/Mental Status: Mood NL Review of Relevant I have reviewed the following items jairo (where applicable) has been applied. Labs Laboratory Tests Test 11/21/21 19:27 11/21/21 19:30 11/22/21 07:30 11/22/21 07:33 White Blood Count 9.0 x10^3/uL (4.0-11.0) 7.7 x10^3/uL (4.0-11.0) Red Blood Count 3.64 x10^6/uL (3.50-5.40) 3.69 x10^6/uL (3.50-5.40) Hemoglobin 9.9 g/dL (12.0-15.5) L 10.0 g/dL (12.0-15.5) L Hematocrit 31.3 % (36.0-47.0) L 31.8 % (36.0-47.0) L Mean Corpuscular Volume 86 fL (79-100) 86 fL (79-100) Mean Corpuscular Hemoglobin 27 pg (25-35) 27 pg (25-35) Mean Corpuscular Hemoglobin Concent 32 g/dL (31-37) 32 g/dL (31-37) Red Cell Distribution Width 18.2 % (11.5-14.5) H 18.1 % (11.5-14.5) H Platelet Count 150 x10^3/uL (140-400) 152 x10^3/uL (140-400) Neutrophils (%) (Auto) 83 % (31-73) H 82 % (31-73) H Lymphocytes (%) (Auto) 7 % (24-48) L 7 % (24-48) L Monocytes (%) (Auto) 7 % (0-9) 8 % (0-9) Eosinophils (%) (Auto) 2 % (0-3) 3 % (0-3) Basophils (%) (Auto) 1 % (0-3) 0 % (0-3) Neutrophils # (Auto) 7.5 x10^3uL (1.8-7.7) 6.3 x10^3uL (1.8-7.7) Lymphocytes # (Auto) 0.7 x10^3/uL (1.0-4.8) L 0.5 x10^3/uL (1.0-4.8) L Monocytes # (Auto) 0.7 x10^3/uL (0.0-1.1) 0.6 x10^3/uL (0.0-1.1) Eosinophils # (Auto) 0.1 x10^3/uL (0.0-0.7) 0.2 x10^3/uL (0.0-0.7) Basophils # (Auto) 0.0 x10^3/uL (0.0-0.2) 0.0 x10^3/uL (0.0-0.2) Sodium Level 141 mmol/L (136-145) 141 mmol/L (136-145) Potassium Level 3.9 mmol/L (3.5-5.1) 3.8 mmol/L (3.5-5.1) Chloride Level 100 mmol/L (98-107) 102 mmol/L (98-107) Carbon Dioxide Level 33 mmol/L (21-32) H 33 mmol/L (21-32) H Anion Gap 8 (6-14) 6 (6-14) Blood Urea Nitrogen 65 mg/dL (7-20) H 57 mg/dL (7-20) H Creatinine 2.5 mg/dL (0.6-1.0) H 2.2 mg/dL (0.6-1.0) H Estimated GFR (Cockcroft-Gault) 18.2 21.1 Glucose Level 309 mg/dL (70-99) H 155 mg/dL (70-99) H Calcium Level 7.7 mg/dL (8.5-10.1) L 8.3 mg/dL (8.5-10.1) L Troponin I High Sensitivity 276 ng/L (4-50) H Glucose (Fingerstick) 318 mg/dL (70-99) H 154 mg/dL (70-99) H BUN/Creatinine Ratio 26 (6-20) H Total Bilirubin 0.5 mg/dL (0.2-1.0) Aspartate Amino Transferase (AST) 770 U/L (15-37) H Alanine Aminotransferase (ALT) 1241 U/L (14-59) H Alkaline Phosphatase 244 U/L (46-116) H Total Protein 6.1 g/dL (6.4-8.2) L Albumin 2.7 g/dL (3.4-5.0) L Albumin/Globulin Ratio 0.8 (1.0-1.7) L Microbiology 11/20/21 Urine Culture - Final, Complete 11/20/21 Blood Culture - Preliminary, Resulted NO GROWTH AFTER 1 DAY... Medications Current Medications Medications (Trade) Dose Ordered Sig/Aziza Route PRN Reason Start Time Stop Time Status Last Admin Dose Admin Rivaroxaban (Xarelto) 15 mg DAILYWSUP PO 11/21/21 17:00 11/21/21 13:39 Metoprolol Succinate (Toprol Xl) 100 mg DAILY PO 11/22/21 09:00 11/22/21 09:27 Pantoprazole Sodium (Protonix) 40 mg DAILYAC PO 11/22/21 07:30 11/22/21 09:28 Potassium Chloride (Klor-Con) 10 meq BIDWMEALS PO 11/21/21 20:30 11/22/21 11:38 Amlodipine Besylate (Norvasc) 5 mg DAILY PO 11/22/21 09:00 11/22/21 09:28 Amiodarone HCl (Cordarone) 200 mg DAILY PO 11/22/21 09:00 11/22/21 11:37 Ceftriaxone Sodium 1 gm/ Sodium Chloride 50 ml @ 100 mls/hr 1X IV 11/21/21 20:00 11/21/21 21:11 Insulin Glargine (Lantus Syringe) 13 unit DAILY SQ 11/22/21 09:00 11/22/21 09:24 Insulin Glargine (Lantus Syringe) 8 unit QHS SQ 11/21/21 21:00 11/21/21 21:00 Levothyroxine Sodium (Synthroid) 50 mcg DAILY06 PO 11/22/21 09:30 11/22/21 11:38 Vitals/I & O Vital Signs Date Time Temp Pulse Resp B/P (MAP) Pulse Ox O2 Delivery O2 Flow Rate FiO2 11/22/21 11:37 85 123/54 11/22/21 07:05 26 97 High Flow Nasal Cannula 8.0 11/21/21 23:05 97.9 I & O 1211/21/21 11/22/21 15:00 23:00 07:00 Intake Total 50 ml Balance 50 ml Justification of Admission: Justification of Admission: Justification of Admission Dx: Yes KARLIE WHITTEN MD Nov 22, 2021 14:30
[2021-11-22] MEDS: RIVAROXABAN 15 MG TABLET. PO SCH (16:33)
[2021-11-22] MEDS ORDERED: INSULIN REGULAR 100 UNIT/ML 3ML VIAL. IV ONE (16:45)
[2021-11-23] MEDS: INSULIN GLARGINE SYRINGE. SQ SCH ×2 (07:21→21:00)
[2021-11-23] MEDS: LEVOTHYROXINE 50 MCG TABLET PO SCH (07:56)
[2021-11-23] MEDS ORDERED: IV NORMAL SALINE 50ML 50 ML ONE (08:01)
[2021-11-23] MEDS ORDERED: cefTRIAXone SODIUM 1 GM VIAL ONE (08:01)
[2021-11-23] MEDS: PANTOPRAZOLE 40 MG TABLET. PO SCH (08:03)
[2021-11-23] MEDS: AMIODARONE HCL 200 MG TABLET. PO SCH (08:03)
[2021-11-23] MEDS: amLODIPine BESYLATE 5 MG TABLET PO SCH (08:04)
[2021-11-23] MEDS: POTASSIUM CHLORIDE 10 MEQ TABLET.ER. PO SCH ×2 (08:04→17:00)
[2021-11-23] MEDS: BUMETANIDE 1 MG/4 ML VIAL. IVP SCH ×2 (08:05→14:51)
[2021-11-23] MEDS: METOPROLOL SUCC 24HR ER 25 MG TAB.ER.24H. PO SCH (08:05)
[2021-11-23] MEDS: CLOPIDOGREL BISULFATE 75 MG TABLET PO SCH (08:06)
--- NOTE | 2021-11-23 08:30 | PDOC ---
ELEANOR HUDSON APPEALS COORDINATOR 11/23/21 0830: CARDIO Progress Notes Date & Time Date of Service DATE: 11/23/21 TIME: 08:29 Time of Evaluation 08:29 Subjective Notes No chest pain, palpitations. Is short of breath. Vitals Vitals Vital Signs Date Time Temp Pulse Resp B/P (MAP) Pulse Ox O2 Delivery O2 Flow Rate FiO2 11/23/21 08:05 87 151/70 11/23/21 07:03 26 94 Room Air 11/23/21 05:05 8.0 11/21/21 23:05 97.9 Weight Weight [ ] Laboratory Labs Laboratory Tests Test 11/21/21 12:04 11/21/21 13:45 11/21/21 19:27 11/21/21 19:30 Glucose (Fingerstick) 278 mg/dL (70-99) 318 mg/dL (70-99) Troponin I High Sensitivity 332 ng/L (4-50) 276 ng/L (4-50) White Blood Count 9.0 x10^3/uL (4.0-11.0) Red Blood Count 3.64 x10^6/uL (3.50-5.40) Hemoglobin 9.9 g/dL (12.0-15.5) Hematocrit 31.3 % (36.0-47.0) Mean Corpuscular Volume 86 fL (79-100) Mean Corpuscular Hemoglobin 27 pg (25-35) Mean Corpuscular Hemoglobin Concent 32 g/dL (31-37) Red Cell Distribution Width 18.2 % (11.5-14.5) Platelet Count 150 x10^3/uL (140-400) Neutrophils (%) (Auto) 83 % (31-73) Lymphocytes (%) (Auto) 7 % (24-48) Monocytes (%) (Auto) 7 % (0-9) Eosinophils (%) (Auto) 2 % (0-3) Basophils (%) (Auto) 1 % (0-3) Neutrophils # (Auto) 7.5 x10^3uL (1.8-7.7) Lymphocytes # (Auto) 0.7 x10^3/uL (1.0-4.8) Monocytes # (Auto) 0.7 x10^3/uL (0.0-1.1) Eosinophils # (Auto) 0.1 x10^3/uL (0.0-0.7) Basophils # (Auto) 0.0 x10^3/uL (0.0-0.2) Sodium Level 141 mmol/L (136-145) Potassium Level 3.9 mmol/L (3.5-5.1) Chloride Level 100 mmol/L (98-107) Carbon Dioxide Level 33 mmol/L (21-32) Anion Gap 8 (6-14) Blood Urea Nitrogen 65 mg/dL (7-20) Creatinine 2.5 mg/dL (0.6-1.0) Estimated GFR (Cockcroft-Gault) 18.2 Glucose Level 309 mg/dL (70-99) Calcium Level 7.7 mg/dL (8.5-10.1) Test 11/22/21 07:30 11/22/21 07:33 11/22/21 16:37 11/22/21 20:58 White Blood Count 7.7 x10^3/uL (4.0-11.0) Red Blood Count 3.69 x10^6/uL (3.50-5.40) Hemoglobin 10.0 g/dL (12.0-15.5) Hematocrit 31.8 % (36.0-47.0) Mean Corpuscular Volume 86 fL (79-100) Mean Corpuscular Hemoglobin 27 pg (25-35) Mean Corpuscular Hemoglobin Concent 32 g/dL (31-37) Red Cell Distribution Width 18.1 % (11.5-14.5) Platelet Count 152 x10^3/uL (140-400) Neutrophils (%) (Auto) 82 % (31-73) Lymphocytes (%) (Auto) 7 % (24-48) Monocytes (%) (Auto) 8 % (0-9) Eosinophils (%) (Auto) 3 % (0-3) Basophils (%) (Auto) 0 % (0-3) Neutrophils # (Auto) 6.3 x10^3uL (1.8-7.7) Lymphocytes # (Auto) 0.5 x10^3/uL (1.0-4.8) Monocytes # (Auto) 0.6 x10^3/uL (0.0-1.1) Eosinophils # (Auto) 0.2 x10^3/uL (0.0-0.7) Basophils # (Auto) 0.0 x10^3/uL (0.0-0.2) Sodium Level 141 mmol/L (136-145) Potassium Level 3.8 mmol/L (3.5-5.1) Chloride Level 102 mmol/L (98-107) Carbon Dioxide Level 33 mmol/L (21-32) Anion Gap 6 (6-14) Blood Urea Nitrogen 57 mg/dL (7-20) Creatinine 2.2 mg/dL (0.6-1.0) Estimated GFR (Cockcroft-Gault) 21.1 BUN/Creatinine Ratio 26 (6-20) Glucose Level 155 mg/dL (70-99) Calcium Level 8.3 mg/dL (8.5-10.1) Total Bilirubin 0.5 mg/dL (0.2-1.0) Aspartate Amino Transf (AST/SGOT) 770 U/L (15-37) Alanine Aminotransferase (ALT/SGPT) 1241 U/L (14-59) Alkaline Phosphatase 244 U/L (46-116) Total Protein 6.1 g/dL (6.4-8.2) Albumin 2.7 g/dL (3.4-5.0) Albumin/Globulin Ratio 0.8 (1.0-1.7) Glucose (Fingerstick) 154 mg/dL (70-99) 263 mg/dL (70-99) 253 mg/dL (70-99) Test 11/22/21 22:15 11/23/21 07:19 SARS-CoV-2 Antigen (Rapid) Negative (NEGATIVE) Glucose (Fingerstick) 183 mg/dL (70-99) Microbiology Micro Microbiology 11/20/21 Urine Culture - Final, Complete 11/20/21 Blood Culture - Preliminary, Resulted NO GROWTH AFTER 2 DAYS... Physical Exams HEENT: Neck Supple W Full Motion Chest: Symmetric Lungs: Other (crackles ) Heart: irregularly irregular (AFIB, rate controlled ) Abdomen: Soft N/T Extremities: Other (trace bilateral LE edema ) Neurology: alert, follow commands, other (drowsy, some confusion) Assessment Assessment 1. Recurrent acute on chronic diastolic heart failure: Continue gentle diuresis with close monitoring of renal function. Recent 2D echo in May 2021 showed normal left ventricular systolic function with EF 55 to 60%. Accurate I and O 2. CAD s/p PCI/stents placement to LAD and RCA in the past and more recent PCI/JOSSELYN to distal RCA. The previously placed stents were patent. Her troponin level is slightly elevated, most with demand ischemia/type II non-STEMI. 3. Hypertension; mildly elevated 4. Hyperlipidemia 5. Atrial fibrillation, rate controlled 6. Diabetes, II 7. Acute on chronic renal insufficiency 8. Hypothyroidism: TSH 9.2. at per IM 9. Transaminitis Recommendations CXR ABG Repeat labs Needs fluid offloading, but unable to be too aggressive given renal insufficiency Will start inotropic support with milrinone Continue Bumex therapy Accurate I and O. Discussed with RN Secondary prevention. Resume Plavix. Hold statin with transaminitis Transfer to [facility] when bed available ABELINO CRUZ MD 11/23/21 5032: CARDIO Progress Notes Assessment Assessment Patient seen and examined I agree with our nurse practitioners assessment and plan. Recurrent acute on chronic diastolic heart failure: Continue gentle diuresis with close monitoring of renal function. Recent 2D echo in May 2021 showed normal left ventricular systolic function with EF 55 to 60%. CAD s/p PCI/stents placement to LAD and RCA in the past and more recent PCI/JOSSELYN to distal RCA. The previously placed stents were patent. Her troponin level is slightly elevated, most with demand ischemia/type II non-STEMI. Continue baseline medications. Hypertension; mildly elevated Hyperlipidemia Atrial fibrillation, rate controlled Diabetes, II Acute on chronic renal insufficiency. Monitoring lab. Hypothyroidism: TSH 9.2. at per IM Transaminitis. Holding statins. ELEANOR HUDSON APRN Nov 23, 2021 08:30 ABELINO CRUZ MD Nov 23, 2021 18:52
[2021-11-23] MEDS ORDERED: MILRINONE 20MG/100ML PREMIX 100 ML IV PRN (09:45)
[2021-11-23 10:24] LABS: BGAS PH 7.41 (7.35-7.45)
[2021-11-23 10:40] LABS: CALCIUM 8.5 mg/dL (8.5-10.1); CREATININE 1.9 mg/dL (0.6-1.0); GFR 24.9; MAGNESIUM 2.2 mg/dL (1.8-2.4); POTASSIUM 3.9 mmol/L (3.5-5.1)
--- NOTE | 2021-11-23 12:22 | RAD ---
EXAM: Chest, single view. HISTORY: Congestive heart failure. COMPARISON: 11/22/2021 FINDINGS: A frontal view of the chest is obtained. There is stable diffuse right lower lobe predomina nt interstitial and alveolar infiltrate with small pleural effusions. There is a stable prominent car diac silhouette. There is no pneumothorax. IMPRESSION: Stable diffuse infiltrate and small pleural effusions. Electronically signed by: Nuvia Manzano MD (11/23/2021 12:20 PM) [email or web address]
[2021-11-23] MEDS ORDERED: BISACODYL 10 MG SUPP.RECT PR ONE (15:15)
[2021-11-23] MEDS ORDERED: GLYCERIN ADULT 1 SUPP.RECT. PR ONE (15:15)
[2021-11-23] MEDS: RIVAROXABAN 15 MG TABLET. PO SCH (17:00)
[2021-11-24] VITALS (12 sets, daily range): BP systolic 108–138; BP diastolic 50–76
[2021-11-24] MEDS: RIVAROXABAN 15 MG TABLET. PO SCH (04:33)
[2021-11-24 07:22] LABS: BASO % 1 % (0-3); EOS # 0.2 x10^3/uL (0.0-0.7); EOS % 4 % (0-3); HEMATOCRIT 30.5 % (36.0-47.0); HEMOGLOBIN 9.7 g/dL (12.0-15.5); LYMPH # 0.6 x10^3/uL (1.0-4.8); LYMPH % 9 % (24-48); MEAN CORPUSCULAR HEMOGLOBIN 27 pg (25-35); MEAN CORPUSCULAR HGB CONC 32 g/dL (31-37); MEAN CORPUSCULAR VOLUME 85 fL (79-100); MONO # 0.8 x10^3/uL (0.0-1.1); MONO % 12 % (0-9); NEUT # 4.7 x10^3uL (1.8-7.7); NEUT % 75 % (31-73); PLATELET COUNT 190 x10^3/uL (140-400); RED CELL DISTRIBUTION WIDTH 18.3 % (11.5-14.5); WHITE BLOOD COUNT 6.3 x10^3/uL (4.0-11.0)
[2021-11-24 07:48] LABS: CALCIUM 8.3 mg/dL (8.5-10.1); CREATININE 1.7 mg/dL (0.6-1.0); GFR 28.4; POTASSIUM 3.4 mmol/L (3.5-5.1)
[2021-11-24 07:55] LABS: ALBUMIN 2.3 g/dL (3.4-5.0); ALBUMIN/GLOBULIN RATIO 0.7 (1.0-1.7); TOTAL BILIRUBIN 0.7 mg/dL (0.2-1.0); TOTAL PROTEIN 5.8 g/dL (6.4-8.2)
--- NOTE | 2021-11-24 08:05 | PDOC ---
ELEANOR HUDSON ESTUARDO 11/24/21 0805: CARDIO Progress Notes Date & Time Date of Service DATE: 11/24/21 TIME: 08:01 Time of Evaluation 08:01 Subjective Notes Much more alert, awake, appropriate today. Feel well. Less SOA Vitals Vitals Vital Signs Date Time Temp Pulse Resp B/P (MAP) Pulse Ox O2 Delivery O2 Flow Rate FiO2 11/24/21 07:04 72 28 139/63 (88) 97 Nasal Cannula 5.0 11/23/21 18:00 98.0 Weight Weight [ ] Input and Output I.O. Intake and Output 11/24/21 07:00 Output Total 3400 ml Balance -3400 ml Output Urine Total 3400 ml # Bowel Movements 1 Laboratory Labs Laboratory Tests Test 11/22/21 16:37 11/22/21 20:58 11/22/21 22:15 11/23/21 07:19 Glucose (Fingerstick) 263 mg/dL (70-99) 253 mg/dL (70-99) 183 mg/dL (70-99) Coronavirus (COVID-19)(PCR) Not detected (NOT DETECTD) SARS-CoV-2 Antigen (Rapid) Negative (NEGATIVE) Test 11/23/21 09:52 11/23/21 10:12 11/24/21 05:02 11/24/21 06:45 Sodium Level 142 mmol/L (136-145) Potassium Level 3.9 mmol/L (3.5-5.1) Chloride Level 98 mmol/L (98-107) Carbon Dioxide Level 36 mmol/L (21-32) Anion Gap 8 (6-14) Blood Urea Nitrogen 50 mg/dL (7-20) Creatinine 1.9 mg/dL (0.6-1.0) Estimated GFR (Cockcroft-Gault) 24.9 Glucose Level 230 mg/dL (70-99) Calcium Level 8.5 mg/dL (8.5-10.1) Magnesium Level 2.2 mg/dL (1.8-2.4) Prothrombin Time 16.8 SEC (9.4-11.4) Prothromb Time International Ratio 1.6 (0.9-1.1) Blood Gas pH 7.41 (7.35-7.45) Blood Gas PCO2 60 mmHg (35-45) Blood Gas PO2 88 mmHg (71-100) Blood Gas HCO3 38 mmol/L (22-26) Arterial Bld O2 Saturation (Calc) 96 % (92-99) FiO2 52 % Glucose (Fingerstick) 226 mg/dL (70-99) White Blood Count 6.3 x10^3/uL (4.0-11.0) Red Blood Count 3.60 x10^6/uL (3.50-5.40) Hemoglobin 9.7 g/dL (12.0-15.5) Hematocrit 30.5 % (36.0-47.0) Mean Corpuscular Volume 85 fL (79-100) Mean Corpuscular Hemoglobin 27 pg (25-35) Mean Corpuscular Hemoglobin Concent 32 g/dL (31-37) Red Cell Distribution Width 18.3 % (11.5-14.5) Platelet Count 190 x10^3/uL (140-400) Neutrophils (%) (Auto) 75 % (31-73) Lymphocytes (%) (Auto) 9 % (24-48) Monocytes (%) (Auto) 12 % (0-9) Eosinophils (%) (Auto) 4 % (0-3) Basophils (%) (Auto) 1 % (0-3) Neutrophils # (Auto) 4.7 x10^3uL (1.8-7.7) Lymphocytes # (Auto) 0.6 x10^3/uL (1.0-4.8) Monocytes # (Auto) 0.8 x10^3/uL (0.0-1.1) Eosinophils # (Auto) 0.2 x10^3/uL (0.0-0.7) Basophils # (Auto) 0.0 x10^3/uL (0.0-0.2) Test 11/24/21 06:55 11/24/21 07:27 Bedside Venous pH 7.52 (7.32-7.42) Bedside Venous pCO2 54 mmHg (41-51) Bedside Venous pO2 61 mmHg (20-40) Venous Blood HCO3 44 mmol/L (24-28) POC Venous O2 Saturation (Sharon) 93 % Bedside FiO2 40 Sodium Level 139 mmol/L (136-145) Potassium Level 3.4 mmol/L (3.5-5.1) Chloride Level 98 mmol/L (98-107) Carbon Dioxide Level 37 mmol/L (21-32) Anion Gap 4 (6-14) Blood Urea Nitrogen 44 mg/dL (7-20) Creatinine 1.7 mg/dL (0.6-1.0) Estimated GFR (Cockcroft-Gault) 28.4 BUN/Creatinine Ratio 26 (6-20) Glucose Level 257 mg/dL (70-99) Calcium Level 8.3 mg/dL (8.5-10.1) Total Bilirubin 0.7 mg/dL (0.2-1.0) Aspartate Amino Transf (AST/SGOT) 194 U/L (15-37) Alanine Aminotransferase (ALT/SGPT) 752 U/L (14-59) Alkaline Phosphatase 176 U/L (46-116) Total Protein 5.8 g/dL (6.4-8.2) Albumin 2.3 g/dL (3.4-5.0) Albumin/Globulin Ratio 0.7 (1.0-1.7) Microbiology Micro Microbiology 11/20/21 Urine Culture - Final, Complete 11/20/21 Blood Culture - Preliminary, Resulted NO GROWTH AFTER 3 DAYS... Physical Exams HEENT: Neck Supple W Full Motion Chest: Symmetric Lungs: Other (diminished bases) Heart: irregularly irregular (AFIB, rate controlled ) Abdomen: Soft N/T Extremities: Other (trace bilateral LE edema ) Neurology: alert, oriented, follow commands Assessment Assessment 1. Recurrent acute on chronic diastolic heart failure; echo 06/17 with normal LV systolic function. improved s/p diuresis, inotropic support with milrinone therapy. Good UOP 2. CAD s/p PCI/stents placement to LAD and RCA in the past and more recent PCI/JOSSELYN to distal RCA. The previously placed stents were patent. 3. Hypertension; now controlled 4. Hyperlipidemia 5. Atrial fibrillation, rate controlled 6. Diabetes, II 7. THELMA on CKD; improving. Cr improved to 1.7 8. Hypothyroidism: TSH 9.2. at per IM 9. Transaminitis; improved 10. Hypokalemia Recommendations Continue inotropic support with milrinone Ongoing diuresis with close monitoring of renal function Monitor I and O Replace K Secondary prevention Will plan to admit to [facility] given clinical improvement over last 24hrs CHAYO MCGRAW MD 11/24/211923: CARDIO Progress Notes Plan Plan Patient seen and examined. Agree with above nurse practitioner note. I had a long conversation today with the patient and her son and her daughter. I had the case reviewed by our pulmonary colleagues. Based on everybody's evaluation this appears to be most consistent with heart failure. Her chest x-ray is not much improved. Her creatinine is stable. We will continue aggressive diuresis. Monitor in the ICU overnight. Plan for BiPAP trial as she has felt remarkably better this morning and is mentating better. Supportive care for now. We will follow along. ELEANOR HUDSON APRN Nov 24, 2021 08:05 CHAYO MCGRAW MD Nov 24, 2021 19:24
--- NOTE | 2021-11-24 08:24 | RAD ---
EXAM: Chest, single view. HISTORY: Shortness of breath. COMPARISON: 11/23/2021 FINDINGS: A frontal view of the chest is obtained. There is stable diffuse lower lobe predominant int erstitial infiltrate with small pleural effusions. There may be partial left lower lobe consolidation . There is a stable prominent cardiac silhouette. There is no pneumothorax. IMPRESSION: Stable diffuse infiltrate with small pleural effusions and possible partial left lower lo be consolidation. Electronically signed by: Nuvia Manzano MD (11/24/2021 8:22 AM) [id number]
[2021-11-24] MEDS ORDERED: POTASSIUM CHLORIDE 20 MEQ TABLET.ER. PO ONE ×2 (08:30→17:00)
[2021-11-24] MEDS: BUMETANIDE 1 MG/4 ML VIAL. IVP SCH ×2 (08:53→15:18)
[2021-11-24] MEDS: AMIODARONE HCL 200 MG TABLET. PO SCH (08:54)
[2021-11-24] MEDS: LEVOTHYROXINE 50 MCG TABLET PO SCH (08:54)
[2021-11-24] MEDS: CLOPIDOGREL BISULFATE 75 MG TABLET PO SCH (08:55)
[2021-11-24] MEDS: amLODIPine BESYLATE 5 MG TABLET PO SCH (08:55)
[2021-11-24] MEDS: POTASSIUM CHLORIDE 10 MEQ TABLET.ER. PO SCH ×2 (08:56→17:10)
[2021-11-24] MEDS: PANTOPRAZOLE 40 MG TABLET. PO SCH (08:56)
[2021-11-24] MEDS: LACTOBACILLUS RHAMNOSUS GG 1 CAPSULE. PO SCH ×2 (08:58→20:57)
[2021-11-24] MEDS: METOPROLOL SUCC 24HR ER 25 MG TAB.ER.24H. PO SCH (08:58)
[2021-11-24] MEDS: INSULIN GLARGINE SYRINGE. SQ SCH ×2 (09:00→21:04)
[2021-11-24] MEDS ORDERED: ONDANSETRON PF 4 MG/2 ML VIAL. IVP PRN (10:00)
[2021-11-24] MEDS ORDERED: ACETAMINOPHEN 325 MG TABLET PO PRN (10:00)
--- NOTE | 2021-11-24 11:27 | HP ---
DATE OF SERVICE: 11/24/2021 ADMIT DATE: 11/21/2021 CHIEF COMPLAINT: Shortness of breath and altered mentation. HISTORY OF PRESENT ILLNESS: The patient is an 86-year-old female who was seen in the Emergency Room on 11/20/2021. I was involved in her care just today after they finally got an ICU bed and were able to move her up from the ED. Unfortunately, she spent the last 3-1/2 days in the same room in the Emergency Room on hold because of the bed shortage due to COVID. Cardiology Service had seen her. She had cardiac catheterization with a stent and treatment of a right coronary artery lesion last week. She was sent home. She had a near syncopal episode. She also had worsening heart failure as well as an mncfw-sz-jqqqvch renal failure. Since that time, I have reviewed the notes from Cardiology. They had seen her every day down there. They started her on diuresis. Serial chemistries. They also ordered a milrinone dose and she is better. By the time I saw her today, she is off the drip. Her lungs are clear. Her creatinine is improving and she is in good spirits. She is still on supplemental oxygen. PAST MEDICAL HISTORY: Significant for [id number] congestive heart failure with some diastolic dysfunction. She has had a recent echo in 05/2021 showed an ejection fraction of 55%. She has had coronary artery disease with stents to the LAD and RCA. More recently another stent to the distal RCA. She has hypertension, hyperlipidemia, paroxysmal atrial fibrillation with controlled rate, type 2 diabetes, acute on chronic kidney disease, hypothyroidism, transaminitis and asymptomatic hypokalemia. CURRENT MEDICATIONS: Reviewed. Prior to coming in she was on scheduled allopurinol, amiodarone, atorvastatin, calcitriol, Plavix, ferrous sulfate, Lasix, Neurontin, insulin, Synthroid, metoprolol, oxybutynin, potassium, and Xarelto. SOCIAL HISTORY: She is a nonsmoker, nondrinker. She has had COVID vaccines. She has not had any COVID exposure. FAMILY HISTORY: Noncontributory. REVIEW OF SYSTEMS: Significant for the recent cardiac catheterization at [facility]. Please refer to the Cardiology's note. PHYSICAL EXAMINATION: GENERAL: When I saw her, this is a pleasant elderly female who is very alert. VITAL SIGNS: Initial vital signs showed a blood pressure of 123/58, pulse is 78 and regular. She was afebrile, oxygen saturation 97% on 5 liters by nasal cannula. HEENT: Head is without trauma. Pupils are reactive. Sclerae nonicteric. Oropharynx clear. NECK: Supple. LUNGS: Good breath sounds. Diminished breath sounds at bases. CARDIOVASCULAR: Showed irregularly irregular rhythm, controlled ventricular rate. Peripheral pulses palpable and full. ABDOMEN: Soft. No guarding. No rebound tenderness. EXTREMITIES: Without edema. NEUROLOGIC: Focally intact. Speech is fluent. SKIN: Warm and dry. PERTINENT LABORATORY STUDIES: Reviewed. Her hemoglobin today is 9.7 grams. Her chemistry showed a sodium 142, potassium 3.9 mEq, creatinine is down to 1.7 mg%. Transaminases are still elevated. Most recent chest x-ray showed stable diffuse infiltrates and small vessel disease with partial left lower lobe consolidation. ASSESSMENT: 1. An 86-year-old female with vjnfo-zo-bgonovh congestive heart failure. 2. Paroxysmal atrial fibrillation. 3. Known coronary artery disease with recent cardiac catheterization and stents. 4. Hypothyroidism, on replacement. 5. Type 2 diabetes. 6. Generalized debilitation. 7. Essential hypertension. 8. Paroxysmal atrial fibrillation. 9. Chronic anticoagulation. PLAN: 1. Admit to our ICU. 2. Milrinone drip was stopped. 3. Recs per Cardiology. 4. Continue home meds. AMANDA/LINSEY DR: AMANDA/jie TID: [id number]
--- NOTE | 2021-11-24 11:30 | NUR ---
The patient, BRENDON PELAEZ, 86 y/o, F admitted by BETZAIDA HELTON MD, was given written information regarding hospital policies, unit procedures and contact persons. Valuables were checked and left at bedside.
[2021-11-24] MEDS: OXYBUTYNIN CHLORIDE 5 MG TABLET PO SCH ×2 (15:17→20:57)
[2021-11-24] MEDS ORDERED: MILRINONE 20MG/100ML PREMIX 100 ML IV PRN (16:45)
[2021-11-24] MEDS: ATORVASTATIN CALCIUM 20 MG TABLET PO SCH (21:00)
[2021-11-24] MEDS: GABAPENTIN 100 MG CAPSULE. PO SCH (21:00)
[2021-11-24] MEDS ORDERED: POTASSIUM CHLORIDE 10 MEQ TABLET.ER. PO SCH (21:00)
[2021-11-24] MEDS ORDERED: INSULIN DEGLUDEC 6 UNIT SQ SCH (21:00)
[2021-11-24] MEDS ORDERED: CLOPIDOGREL BISULFATE 75 MG TABLET PO SCH (21:00)
[2021-11-25] VITALS (23 sets, daily range): BP systolic 94–136; BP diastolic 42–84
[2021-11-25] MEDS ORDERED: LEVOTHYROXINE SODIUM 50 MCG PO SCH (06:00)
[2021-11-25] MEDS: LEVOTHYROXINE 50 MCG TABLET PO SCH (06:10)
[2021-11-25 06:23] LABS: CREATININE 1.8 mg/dL (0.6-1.0); GFR 26.6; POTASSIUM 3.8 mmol/L (3.5-5.1)
--- NOTE | 2021-11-25 06:39 | NUR ---
Pt was placed on BIPAP around 2200 last night, as ordered by overnight. Pt agreed but wasn't happy about it as she said she was tired of it. Pt tolerated well until around 0430 then returned to 2l NC. Status otherwise unchanged. Slept well most of the night.
--- NOTE | 2021-11-25 08:14 | PDOC2 ---
CARDIAC CONSULT CURRENT MEDICATIONS Current Medications Current Medications Ceftriaxone Sodium 1 gm/ Sodium Chloride 50 ml @ 100 mls/hr 1X ONCE IV Last administered on 11/20/21at 19:23; Start 11/20/21 at 18:15; Stop 11/20/21 at 18:44; Status DC Ciprofloxacin Lactate 200 ml @ 200 mls/hr 1X ONCE IV Last administered on 11/20/21at 19:25; Start 11/20/21 at 18:15; Stop 11/20/21 at 19:14; Status DC Iohexol (Omnipaque 350 Mg/ml) 100 ml 1X ONCE IV ; Start 11/20/21 at 18:30; Stop 11/20/21 at 18:40; Status DC Info (Do NOT chart on this entry -- for MONITORING) 1 each PRN DAILY PRN MC SEE COMMENTS; Start 11/20/21 at 18:45; Stop 11/22/21 at 18:44; Status DC Sodium Chloride 50 ml @ As Directed STK-MED ONCE .ROUTE ; Start 11/20/21 at 19:07; Stop 11/20/21 at 19:07; Status DC Ceftriaxone Sodium (Rocephin) 1 gm STK-MED ONCE .ROUTE ; Start 11/20/21 at 19:07; Stop 11/20/21 at 19:07; Status DC Furosemide (Lasix) 40 mg 1X ONCE IVP Last administered on 11/20/21at 19:30; Start 11/20/21 at 19:30; Stop 11/20/21 at 19:33; Status DC Bumetanide (Bumex) 1 mg BID92 IVP Last administered on 11/24/21at 15:18; Start 11/21/21 at 09:00 Clopidogrel Bisulfate (Plavix) 75 mg 1X ONCE PO Last administered on 11/21/21at 12:50; Start 11/21/21 at 12:00; Stop 11/21/21 at 12:01; Status DC Rivaroxaban (Xarelto) 15 mg DAILYWSUP PO Last administered on 11/24/21at 04:33; Start 11/21/21 at 17:00 Insulin Human Lispro (HumaLOG) 3 units 1X ONCE SQ Last administered on 11/21/21at 12:52; Start 11/21/21 at 12:45; Stop 11/21/21 at 12:48; Status DC Insulin Human Lispro (HumaLOG) 300 units STK-MED ONCE SQ ; Start 11/21/21 at 12:47; Stop 11/21/21 at 12:48; Status DC Acetaminophen (Tylenol) 650 mg PRN Q4HRS PRN PO FEVER > 100.3'F; Start 11/21/21 at 13:45; Stop 11/22/21 at 13:44; Status DC Nitroglycerin (Nitrostat) 0.4 mg PRN Q5MIN PRN SL CHEST PAIN; Start 11/21/21 at 13:45; Stop 11/22/21 at 13:44; Status DC Levothyroxine Sodium (Synthroid) 50 mcg DAILY06 PO ; Start 11/22/21 at 06:00; Stop 11/22/21 at 09:18; Status DC Metoprolol Succinate (Toprol Xl) 100 mg DAILY PO Last administered on 11/24/21at 08:58; Start 11/22/21 at 09:00 Pantoprazole Sodium (Protonix) 40 mg DAILYAC PO Last administered on 11/24/21at 08:56; Start 11/22/21 at 07:30 Potassium Chloride (Klor-Con) 10 meq BIDWMEALS PO Last administered on 11/24/21at 17:10; Start 11/21/21 at 20:30 Amlodipine Besylate (Norvasc) 5 mg DAILY PO Last administered on 11/24/21at 08:55; Start 11/22/21 at 09:00 Amiodarone HCl (Cordarone) 200 mg DAILY PO Last administered on 11/24/21at 08:54; Start 11/22/21 at 09:00 Ceftriaxone Sodium 1 gm/ Sodium Chloride 50 ml @ 100 mls/hr 1X IV Last administered on 11/21/21at 21:11; Start 11/21/21 at 20:00; Stop 11/23/21 at 07:41; Status DC Insulin Glargine (Lantus Syringe) 13 unit DAILY SQ Last administered on 11/24/21at 09:00; Start 11/22/21 at 09:00 Insulin Glargine (Lantus Syringe) 8 unit QHS SQ Last administered on 11/24/21at 21:04; Start 11/21/21 at 21:00 Sodium Chloride 50 ml @ As Directed STK-MED ONCE .ROUTE ; Start 11/21/21 at 20:58; Stop 11/21/21 at 20:59; Status DC Ceftriaxone Sodium (Rocephin) 1 gm STK-MED ONCE .ROUTE ; Start 11/21/21 at 20:59; Stop 11/21/21 at 20:59; Status DC Levothyroxine Sodium (Synthroid) 50 mcg DAILY06 PO Last administered on 11/25/21at 06:10; Start 11/22/21 at 09:30 Insulin Human Regular (HumuLIN R VIAL) 5 unit 1X ONCE IV Last administered on 11/22/21at 17:04; Start 11/22/21 at 16:45; Stop 11/22/21 at 17:00; Status DC Ceftriaxone Sodium 1 gm/ Sodium Chloride 50 ml @ 100 mls/hr DAILY IV Last administered on 11/23/21at 08:06; Start 11/23/21 at 09:00; Stop 11/24/21 at 03:39; Status DC Sodium Chloride 50 ml @ As Directed STK-MED ONCE .ROUTE ; Start 11/23/21 at 08 :01; Stop 11/23/21 at 08:01; Status DC Ceftriaxone Sodium (Rocephin) 1 gm STK-MED ONCE .ROUTE ; Start 11/23/21 at 08:01; Stop 11/23/21 at 08:02; Status DC Milrinone Lactate/ Dextrose 100 ml @ 3.7 mls/hr CONT PRN IV PER PROTOCOL Last administered on 11/23/21at 10:00; Start 11/23/21 at 09:45; Stop 11/24/21 at 13:06; Status DC Clopidogrel Bisulfate (Plavix) 75 mg DAILYWBKFT PO Last administered on 11/24/21at 08:55; Start 11/23/21 at 10:00 Bisacodyl (Dulcolax Supp) 10 mg 1X ONCE OR ; Start 11/23/21 at 15:15; Stop 11/23/21 at 15:20; Status DC Glycerin (Sani-Supp Adult) 1 supp 1X ONCE OR ; Start 11/23/21 at 15:15; Stop 11/23/21 at 15:20; Status DC Levofloxacin/ Dextrose 150 ml @ 100 mls/hr Q48H IV Last administered on 11/24/21at 04:34; Start 11/24/21 at 05:00 Potassium Chloride (Klor-Con) 40 meq 1X ONCE PO ; Start 11/24/21 at 08:30; Stop 11/24/21 at 08:31; Status DC Lactobacillus Rhamnosus (Culturelle) 1 cap BID PO Last administered on 11/24/21at 20:57; Start 11/24/21 at 09:00 Ondansetron HCl (Zofran) 4 mg PRN Q4HRS PRN IVP NAUSEA/VOMITING; Start 11/24/21 at 10:00; Stop 11/25/21 at 09:59 Acetaminophen (Tylenol) 650 mg PRN Q4HRS PRN PO FEVER > 100.3'F; Start 11/24/21 at 10:00; Stop 11/25/21 at 09:59 Allopurinol (Zyloprim) 100 mg DAILY PO ; Start 11/25/21 at 09:00 Amiodarone HCl (Cordarone) 200 mg DAILY PO ; Start 11/25/21 at 09:00; Stop 11/24/21 at 12:15; Status DC Amlodipine Besylate (Norvasc) 5 mg DAILY PO ; Start 11/25/21 at 09:00; Stop 11/24/21 at 12:15; Status DC Atorvastatin Calcium (Lipitor) 20 mg QHS PO Last administered on 11/24/21at 21:00; Start 11/24/21 at 21:00 Calcitriol (Rocaltrol) 0.25 mcg DAILY PO ; Start 11/25/21 at 09:00 Clopidogrel Bisulfate (Plavix) 75 mg HS PO ; Start 11/24/21 at 21:00; Stop 11/24/21 at 12:19; Status DC Ferrous Sulfate (Feosol) 325 mg DAILY PO ; Start 11/25/21 at 09:00 Furosemide (Lasix) 40 mg QODAY PO ; Start 11/26/21 at 09:00; Status UNV Gabapentin (Neurontin) 100 mg BID PO Last administered on 11/24/21at 21:00; Start 11/24/21 at 21:00 Pantoprazole Sodium (Protonix) 40 mg DAILY PO ; Start 11/25/21 at 09:00; Stop 11/24/21 at 12:17; Status DC Potassium Chloride (Klor-Con) 10 meq BID PO ; Start 11/24/21 at 21:00; Stop 11/24/21 at 12:24; Status DC Rivaroxaban (Xarelto) 15 mg DAILY PO ; Start 11/25/21 at 09:00; Stop 11/24/21 at 12:16; Status DC Non-Formulary Medication (Insulin Degludec (Tresiba)) 6 unit BID SQ ; Start 11/24/21 at 21:00; Stop 11/24/21 at 13:07; Status DC Non-Formulary Medication (Levothyroxine Sodium (Levothyroxine)) 50 mcg DAILY06 PO ; Start 11/25/21 at 06:00; Stop 11/24/21 at 12:20; Status DC Non-Formulary Medication (Metoprolol Succinate (Metoprolol Succinate ( Xl ))) 1 tab DAILY PO ; Start 11/25/21 at 09:00; Stop 11/24/21 at 12:20; Status DC Oxybutynin Chloride (Ditropan) 5 mg [id number] PO Last administered on 11/24/21at 20:57; Start 11/24/21 at 14:00 Potassium Chloride (Klor-Con) 40 meq 1X ONCE PO Last administered on 11/24/21at 17:10; Start 11/24/21 at 17:00; Stop 11/24/21 at 17:01; Status DC Milrinone Lactate/ Dextrose 100 ml @ 3.353 mls/ hr CONT PRN IV PER PROTOCOL Last administered on 11/24/21at 17:16; Start 11/24/21 at 16:45 Active Scripts Active Lasix (Furosemide) 40 Mg Tablet 1 Tab PO QODAY 30 Days Norvasc (Amlodipine Besylate) 5 Mg Tablet 1 Tab PO DAILY 30 Days Reported Xarelto (Rivaroxaban) 15 Mg Tablet 1 Tab PO DAILY 30 Days Tresiba (Insulin Degludec) 100 Unit/1 Ml Vial 6 Unit SQ BID Klor-Con 10 (Potassium Chloride) 10 Meq Tablet.er 1 Tab PO BID 30 Days Pantoprazole Sodium 40 Mg Tablet.dr 1 Tab PO DAILY Oxybutynin Chloride Er (Oxybutynin Chloride) 15 Mg Tab.er.24 1 Tab PO BID Metoprolol Succinate ( Xl ) (Metoprolol Succinate) 100 Mg Tab.er.24h 1 Tab PO DAILY Levothyroxine (Levothyroxine Sodium) 50 Mcg Capsule 50 Mcg PO DAILY06 Gabapentin (Gabapentin) 100 Mg Capsule 100 Mg PO BID Ferrous Sulfate 325 Mg Tablet 1 Tab PO DAILY Clopidogrel (Clopidogrel Bisulfate) 75 Mg Tablet 1 Tab PO HS Calcitriol 0.25 Mcg Capsule 1 Cap PO DAILY Atorvastatin Calcium 20 Mg Tablet 20 Mg PO QHS Amiodarone Hcl 200 Mg Tablet 1 Tab PO DAILY Allopurinol 100 Mg Tablet 1 Tab PO DAILY ALLERGIES Allergies: Coded Allergies: NKMA (Verified Allergy, Unknown, 11/20/21) Uncoded Allergies: CONTACT ISOLATION (Adverse Reaction, Unknown, 06/12/21) ESBL in urine 06/10/2021. VITALS Vital Signs Vital Signs Date Time Temp Pulse Resp B/P (MAP) Pulse Ox O2 Delivery O2 Flow Rate FiO2 11/25/21 07:00 98.3 73 28 118/50 (72) 94 Nasal Cannula 2.0 LABS LABS Laboratory Tests Test 11/23/21 09:52 11/23/21 10:12 11/24/21 05:02 11/24/21 06:45 Sodium Level 142 mmol/L (136-145) Potassium Level 3.9 mmol/L (3.5-5.1) Chloride Level 98 mmol/L (98-107) Carbon Dioxide Level 36 mmol/L (21-32) Anion Gap 8 (6-14) Blood Urea Nitrogen 50 mg/dL (7-20) Creatinine 1.9 mg/dL (0.6-1.0) Estimated GFR (Cockcroft-Gault) 24.9 Glucose Level 230 mg/dL (70-99) Calcium Level 8.5 mg/dL (8.5-10.1) Magnesium Level 2.2 mg/dL (1.8-2.4) Prothrombin Time 16.8 SEC (9.4-11.4) Prothromb Time International Ratio 1.6 (0.9-1.1) Blood Gas pH 7.41 (7.35-7.45) Blood Gas PCO2 60 mmHg (35-45) Blood Gas PO2 88 mmHg (71-100) Blood Gas HCO3 38 mmol/L (22-26) Arterial Bld O2 Saturation (Calc) 96 % (92-99) FiO2 52 % Glucose (Fingerstick) 226 mg/dL (70-99) White Blood Count 6.3 x10^3/uL (4.0-11.0) Red Blood Count 3.60 x10^6/uL (3.50-5.40) Hemoglobin 9.7 g/dL (12.0-15.5) Hematocrit 30.5 % (36.0-47.0) Mean Corpuscular Volume 85 fL (79-100) Mean Corpuscular Hemoglobin 27 pg (25-35) Mean Corpuscular Hemoglobin Concent 32 g/dL (31-37) Red Cell Distribution Width 18.3 % (11.5-14.5) Platelet Count 190 x10^3/uL (140-400) Neutrophils (%) (Auto) 75 % (31-73) Lymphocytes (%) (Auto) 9 % (24-48) Monocytes (%) (Auto) 12 % (0-9) Eosinophils (%) (Auto) 4 % (0-3) Basophils (%) (Auto) 1 % (0-3) Neutrophils # (Auto) 4.7 x10^3uL (1.8-7.7) Lymphocytes # (Auto) 0.6 x10^3/uL (1.0-4.8) Monocytes # (Auto) 0.8 x10^3/uL (0.0-1.1) Eosinophils # (Auto) 0.2 x10^3/uL (0.0-0.7) Basophils # (Auto) 0.0 x10^3/uL (0.0-0.2) Test 11/24/21 06:55 11/24/21 07:27 11/24/21 16:40 11/25/21 05:38 Bedside Venous pH 7.52 (7.32-7.42) Bedside Venous pCO2 54 mmHg (41-51) Bedside Venous pO2 61 mmHg (20-40) Venous Blood HCO3 44 mmol/L (24-28) POC Venous O2 Saturation (Sharon) 93 % Bedside FiO2 40 Sodium Level 139 mmol/L (136-145) 144 mmol/L (136-145) Potassium Level 3.4 mmol/L (3.5-5.1) 3.8 mmol/L (3.5-5.1) Chloride Level 98 mmol/L (98-107) 100 mmol/L (98-107) Carbon Dioxide Level 37 mmol/L (21-32) 40 mmol/L (21-32) Anion Gap 4 (6-14) 4 (6-14) Blood Urea Nitrogen 44 mg/dL (7-20) 42 mg/dL (7-20) Creatinine 1.7 mg/dL (0.6-1.0) 1.8 mg/dL (0.6-1.0) Estimated GFR (Cockcroft-Gault) 28.4 26.6 BUN/Creatinine Ratio 26 (6-20) Glucose Level 257 mg/dL (70-99) 149 mg/dL (70-99) Calcium Level 8.3 mg/dL (8.5-10.1) 8.0 mg/dL (8.5-10.1) Magnesium Level 2.1 mg/dL (1.8-2.4) Total Bilirubin 0.7 mg/dL (0.2-1.0) Aspartate Amino Transf (AST/SGOT) 194 U/L (15-37) Alanine Aminotransferase (ALT/SGPT) 752 U/L (14-59) Alkaline Phosphatase 176 U/L (46-116) Total Protein 5.8 g/dL (6.4-8.2) Albumin 2.3 g/dL (3.4-5.0) Albumin/Globulin Ratio 0.7 (1.0-1.7) Glucose (Fingerstick) 215 mg/dL (70-99) Test 11/25/21 07:50 Glucose (Fingerstick) 145 mg/dL (70-99) ELEANOR HUDSON APRN Nov 25, 2021 08:14
[2021-11-25] MEDS ORDERED: PANTOPRAZOLE 40 MG TABLET. PO SCH (09:00)
[2021-11-25] MEDS ORDERED: AMIODARONE HCL 200 MG TABLET. PO SCH (09:00)
[2021-11-25] MEDS ORDERED: METOPROLOL SUCCINATE PO SCH (09:00)
[2021-11-25] MEDS ORDERED: amLODIPine BESYLATE 5 MG TABLET PO SCH (09:00)
[2021-11-25] MEDS ORDERED: RIVAROXABAN 15 MG TABLET. PO SCH (09:00)
[2021-11-25] MEDS: OXYBUTYNIN CHLORIDE 5 MG TABLET PO SCH ×3 (09:12→20:04)
[2021-11-25] MEDS: METOPROLOL SUCC 24HR ER 25 MG TAB.ER.24H. PO SCH (09:12)
[2021-11-25] MEDS: FERROUS SULFATE 325 MG TABLET. PO SCH (09:12)
[2021-11-25] MEDS: GABAPENTIN 100 MG CAPSULE. PO SCH ×2 (09:12→20:04)
[2021-11-25] MEDS: ALLOPURINOL 100 MG TABLET. PO SCH (09:13)
[2021-11-25] MEDS: LACTOBACILLUS RHAMNOSUS GG 1 CAPSULE. PO SCH ×2 (09:13→20:04)
[2021-11-25] MEDS: amLODIPine BESYLATE 5 MG TABLET PO SCH (09:13)
[2021-11-25] MEDS: CLOPIDOGREL BISULFATE 75 MG TABLET PO SCH (09:13)
[2021-11-25] MEDS: AMIODARONE HCL 200 MG TABLET. PO SCH (09:13)
[2021-11-25] MEDS: PANTOPRAZOLE 40 MG TABLET. PO SCH (09:13)
[2021-11-25] MEDS: POTASSIUM CHLORIDE 10 MEQ TABLET.ER. PO SCH ×2 (09:14→17:25)
[2021-11-25] MEDS: BUMETANIDE 1 MG/4 ML VIAL. IVP SCH (09:14)
[2021-11-25] MEDS: CALCITRIOL 0.25 MCG CAPSULE PO SCH (09:15)
[2021-11-25] MEDS: INSULIN GLARGINE SYRINGE. SQ SCH ×2 (09:18→20:06)
--- NOTE | 2021-11-25 09:23 | PDOC ---
ELEANOR HUDSON [employer] 11/25/21 0923: CARDIO Progress Notes Date & Time Date of Service DATE: 11/25/21 TIME: 09:21 Time of Evaluation 09:21 Subjective Notes breathing improved, but still somewhat SOA Vitals Vitals Vital Signs Date Time Temp Pulse Resp B/P (MAP) Pulse Ox O2 Delivery O2 Flow Rate FiO2 11/25/21 09:13 73 118/50 11/25/21 08:19 Bi-pap 2.0 11/25/21 07:00 98.3 28 94 Weight Weight [ ] Input and Output I.O. Intake and Output 11/25/21 07:00 Intake Total 1040 ml Output Total 2180 ml Balance -1140 ml Intake Oral 1040 ml Output Urine Total 2180 ml Laboratory Labs Laboratory Tests Test 11/23/21 09:52 11/23/21 10:12 11/24/21 05:02 11/24/21 06:45 Sodium Level 142 mmol/L (136-145) Potassium Level 3.9 mmol/L (3.5-5.1) Chloride Level 98 mmol/L (98-107) Carbon Dioxide Level 36 mmol/L (21-32) Anion Gap 8 (6-14) Blood Urea Nitrogen 50 mg/dL (7-20) Creatinine 1.9 mg/dL (0.6-1.0) Estimated GFR (Cockcroft-Gault) 24.9 Glucose Level 230 mg/dL (70-99) Calcium Level 8.5 mg/dL (8.5-10.1) Magnesium Level 2.2 mg/dL (1.8-2.4) Prothrombin Time 16.8 SEC (9.4-11.4) Prothromb Time International Ratio 1.6 (0.9-1.1) Blood Gas pH 7.41 (7.35-7.45) Blood Gas PCO2 60 mmHg (35-45) Blood Gas PO2 88 mmHg (71-100) Blood Gas HCO3 38 mmol/L (22-26) Arterial Bld O2 Saturation (Calc) 96 % (92-99) FiO2 52 % Glucose (Fingerstick) 226 mg/dL (70-99) White Blood Count 6.3 x10^3/uL (4.0-11.0) Red Blood Count 3.60 x10^6/uL (3.50-5.40) Hemoglobin 9.7 g/dL (12.0-15.5) Hematocrit 30.5 % (36.0-47.0) Mean Corpuscular Volume 85 fL (79-100) Mean Corpuscular Hemoglobin 27 pg (25-35) Mean Corpuscular Hemoglobin Concent 32 g/dL (31-37) Red Cell Distribution Width 18.3 % (11.5-14.5) Platelet Count 190 x10^3/uL (140-400) Neutrophils (%) (Auto) 75 % (31-73) Lymphocytes (%) (Auto) 9 % (24-48) Monocytes (%) (Auto) 12 % (0-9) Eosinophils (%) (Auto) 4 % (0-3) Basophils (%) (Auto) 1 % (0-3) Neutrophils # (Auto) 4.7 x10^3uL (1.8-7.7) Lymphocytes # (Auto) 0.6 x10^3/uL (1.0-4.8) Monocytes # (Auto) 0.8 x10^3/uL (0.0-1.1) Eosinophils # (Auto) 0.2 x10^3/uL (0.0-0.7) Basophils # (Auto) 0.0 x10^3/uL (0.0-0.2) Test 11/24/21 06:55 11/24/21 07:27 11/24/21 16:40 11/25/21 05:38 Bedside Venous pH 7.52 (7.32-7.42) Bedside Venous pCO2 54 mmHg (41-51) Bedside Venous pO2 61 mmHg (20-40) Venous Blood HCO3 44 mmol/L (24-28) POC Venous O2 Saturation (Sharon) 93 % Bedside FiO2 40 Sodium Level 139 mmol/L (136-145) 144 mmol/L (136-145) Potassium Level 3.4 mmol/L (3.5-5.1) 3.8 mmol/L (3.5-5.1) Chloride Level 98 mmol/L (98-107) 100 mmol/L (98-107) Carbon Dioxide Level 37 mmol/L (21-32) 40 mmol/L (21-32) Anion Gap 4 (6-14) 4 (6-14) Blood Urea Nitrogen 44 mg/dL (7-20) 42 mg/dL (7-20) Creatinine 1.7 mg/dL (0.6-1.0) 1.8 mg/dL (0.6-1.0) Estimated GFR (Cockcroft-Gault) 28.4 26.6 BUN/Creatinine Ratio 26 (6-20) Glucose Level 257 mg/dL (70-99) 149 mg/dL (70-99) Calcium Level 8.3 mg/dL (8.5-10.1) 8.0 mg/dL (8.5-10.1) Magnesium Level 2.1 mg/dL (1.8-2.4) Total Bilirubin 0.7 mg/dL (0.2-1.0) Aspartate Amino Transf (AST/SGOT) 194 U/L (15-37) Alanine Aminotransferase (ALT/SGPT) 752 U/L (14-59) Alkaline Phosphatase 176 U/L (46-116) Total Protein 5.8 g/dL (6.4-8.2) Albumin 2.3 g/dL (3.4-5.0) Albumin/Globulin Ratio 0.7 (1.0-1.7) Glucose (Fingerstick) 215 mg/dL (70-99) Test 11/25/21 07:50 Glucose (Fingerstick) 145 mg/dL (70-99) Microbiology Micro Microbiology 11/20/21 Urine Culture - Final, Complete 11/20/21 Blood Culture - Preliminary, Resulted NO GROWTH AFTER 4 DAYS... Physical Exams HEENT: Neck Supple W Full Motion Chest: Symmetric Lungs: Other (diminished bases) Heart: irregularly irregular (AFIB, rate controlled ) Abdomen: Soft N/T Extremities: Other (trace bilateral LE edema ) Neurology: alert, oriented, follow commands Assessment Assessment 1. Recurrent acute on chronic diastolic heart failure; echo 06/17 with normal LV systolic function. improved s/p diuresis, inotropic support with milrinone therapy. Negative 2L overall last 24hrs 2. CAD s/p PCI/stents placement to LAD and RCA in the past and more recent PCI/JOSSELYN to distal RCA. The previously placed stents were patent. 3. Hypertension; now controlled 4. Hyperlipidemia 5. Atrial fibrillation, rate controlled 6. Diabetes, II 7. THELMA on CKD; improving. Cr at 1.8 8. Hypothyroidism: TSH 9.2. at per IM 9. Transaminitis; improved 10. Hypokalemia Recommendations Continue inotropic support with milrinone Ongoing diuresis with close monitoring of renal function. Will decrease Bumex to daily Monitor I and O PT/OT Secondary prevention BiPAP at Supportive care ABELINO CRUZ MD 11/25/21 1644: CARDIO Progress Notes Assessment Assessment Patient seen and examined She looks and feels significantly better. I agree with our nurse practitioners assessment and plan. Recurrent acute on chronic diastolic heart failure; echo 06/17 with normal LV systolic function. improved s/p diuresis, inotropic support with milrinone therapy. Negative 2L overall last 24hrs. Mildly decreased diuretics and monitor lab. CAD s/p PCI/stents placement to LAD and RCA in the past and more recent PCI/JOSSELYN to distal RCA. The previously placed stents were patent. Hypertension; controlled Hyperlipidemia Atrial fibrillation, rate controlled Diabetes, II THELMA on CKD; improving. Cr at 1.8 Hypothyroidism: TSH 9.2. at per IM Transaminitis; improved Hypokalemia. monitoring lab. ELEANOR HUDSON APRN Nov 25, 2021 09:23 ABELINO CRUZ MD Nov 25, 2021 16:44
[2021-11-25] MEDS: RIVAROXABAN 15 MG TABLET. PO SCH (17:25)
[2021-11-25] MEDS ORDERED: BUMETANIDE 1 MG/4 ML VIAL. IVP ONE (18:00)
[2021-11-25] MEDS: ATORVASTATIN CALCIUM 20 MG TABLET PO SCH (20:04)
[2021-11-26] VITALS (24 sets, daily range): BP systolic 90–136; BP diastolic 46–80
--- NOTE | 2021-11-26 01:00 | NUR ---
This assumed care of this patient at this time.
[2021-11-26 01:08] LABS: THYROXINE 5.6 ug/dL (4.5-12.0)
--- NOTE | 2021-11-26 02:08 | NUR ---
Took pt off of BiPap at this time. Pt is thankful and feels better with the mask off.
--- NOTE | 2021-11-26 02:44 | RAD ---
AP chest HISTORY: Congestive heart failure exacerbation. COMPARISON: Chest x-ray November 24, 2021 FINDINGS: Mild cardiomegaly is stable. No pneumothorax. Bilateral pleural effusions along the diaphra gms. Mild decreased density pulmonary opacities since the prior exam with some improved visualization of the lung bases and diaphragms. IMPRESSION: Mild improvement with decreased density of the pulmonary opacities of the lower lobes. Mi ld pleural effusions are stable. Electronically signed by: Mohan Arevalo MD (11/26/2021 2:42 AM) [facility]
[2021-11-26] MEDS: LEVOTHYROXINE 50 MCG TABLET PO SCH (05:06)
[2021-11-26 06:53] LABS: BASO % 0 % (0-3); EOS # 0.2 x10^3/uL (0.0-0.7); EOS % 4 % (0-3); HEMATOCRIT 29.8 % (36.0-47.0); HEMOGLOBIN 9.3 g/dL (12.0-15.5); LYMPH # 0.9 x10^3/uL (1.0-4.8); LYMPH % 13 % (24-48); MEAN CORPUSCULAR HEMOGLOBIN 27 pg (25-35); MEAN CORPUSCULAR HGB CONC 31 g/dL (31-37); MEAN CORPUSCULAR VOLUME 85 fL (79-100); MONO # 0.8 x10^3/uL (0.0-1.1); MONO % 11 % (0-9); NEUT # 4.9 x10^3uL (1.8-7.7); NEUT % 72 % (31-73); PLATELET COUNT 198 x10^3/uL (140-400); RED BLOOD COUNT 3.49 x10^6/uL (3.50-5.40); RED CELL DISTRIBUTION WIDTH 17.7 % (11.5-14.5); WHITE BLOOD COUNT 6.8 x10^3/uL (4.0-11.0)
[2021-11-26 07:10] LABS: ALBUMIN 2.4 g/dL (3.4-5.0); ALBUMIN/GLOBULIN RATIO 0.9 (1.0-1.7); CALCIUM 7.9 mg/dL (8.5-10.1); CREATININE 1.9 mg/dL (0.6-1.0); GFR 24.9; POTASSIUM 3.9 mmol/L (3.5-5.1); TOTAL BILIRUBIN 0.5 mg/dL (0.2-1.0); TOTAL PROTEIN 5.2 g/dL (6.4-8.2)
--- NOTE | 2021-11-26 07:43 | PN ---
DATE: 11/25/2021 SUBJECTIVE: The patient is resting in her chair comfortably, in no apparent respiratory distress. She is awake, alert. Denied any chest pain and felt generally much improved. She is on 2 liters of oxygen by nasal cannula. PHYSICAL EXAMINATION: GENERAL: When I examined her, she was pale, not jaundiced or cyanosed, no lymphadenopathy, no thyromegaly, no jugular venous distention. No lower limb edema. VITAL SIGNS: Her heart rate was 83, blood pressure was 120/52, temperature was 98.4, respiratory rate was 26 and her oxygen saturation was 93% on 2 liters of oxygen. HEAD, EYES, EARS, NOSE, AND THROAT: Normocephalic, atraumatic. NECK: Supple. HEART: Normal first and second heart sounds. No gallop, rub or murmur. CHEST: Showed central trachea, equal bilateral chest expansion, air entry, vesicular breath sounds with bilateral basal crepitation posteriorly. I could not really appreciate any rhonchi. ABDOMEN: Distended, soft, nontender. NEUROLOGIC: She is awake, alert, responding appropriately. Her cranial nerves intact. She moves extremities without difficulty. She ambulates with a walker. She has an indwelling Montes catheter. Her intake was incompletely recorded, output was 3400. LABORATORY DATA: As of this morning, her white cell count was 6300, hemoglobin 10, hematocrit 30, MCV 85, and platelet count of 190,000; the manual differential showed 75% polymorphs, 9% lymphocytes, ____ monocytes. Her serum sodium was 139, potassium 3.4, chloride 98, bicarbonate 37, anion gap of 4, BUN 44, creatinine 1.7. Estimated GFR was 28 mL per minute. Her glucose was ____. Calcium was 8.3. Total bilirubin, AST, ALT, alkaline phosphatase are all elevated. Her total protein was 5.8 and albumin was 2.3. Her most recent B-type natriuretic peptide was 14,077 and she has 3 sets of troponin, all of them are elevated. Her TSH is high at 9.207. ASSESSMENT: 1. Recurrent acute on chronic diastolic heart failure, improved, status post diuresis and inotropic support with milrinone therapy. 2. Coronary artery disease status post percutaneous coronary intervention with stent placement to left anterior and right coronary artery in the past and more recently percutaneous coronary intervention and drug-eluting stent to distal right coronary artery. Her previously placed stents were patent. 3. Hypertension. 4. Hyperlipidemia. 5. Atrial fibrillation, rate controlled. 6. Type 2 diabetes mellitus. 7. Acute on chronic kidney injury, improving. Today's creatinine was 1.8 mg/dL. 8. Hypothyroidism. Her TSH is slightly elevated at 9.2. 9. Transaminitis, improving. 10. Hypokalemia. PLAN: My plan is to check her T3, T4, free T4, and adjust her Synthroid. Meanwhile, continue with IV antibiotic for left lower lobe pneumonia. I will adjust also her Lantus slightly ____ and continue with rivaroxaban for stroke prevention. WILLIE/NIKHIL/ABEBE DR: Jeremiah TID: [id number]
[2021-11-26] MEDS: METOPROLOL SUCC 24HR ER 25 MG TAB.ER.24H. PO SCH (08:03)
[2021-11-26] MEDS: GABAPENTIN 100 MG CAPSULE. PO SCH ×2 (08:04→21:35)
[2021-11-26] MEDS: amLODIPine BESYLATE 5 MG TABLET PO SCH (08:04)
[2021-11-26] MEDS: LACTOBACILLUS RHAMNOSUS GG 1 CAPSULE. PO SCH ×2 (08:05→21:34)
[2021-11-26] MEDS: PANTOPRAZOLE 40 MG TABLET. PO SCH (08:05)
[2021-11-26] MEDS: OXYBUTYNIN CHLORIDE 5 MG TABLET PO SCH ×3 (08:05→21:34)
[2021-11-26] MEDS: CLOPIDOGREL BISULFATE 75 MG TABLET PO SCH (08:06)
[2021-11-26] MEDS: FERROUS SULFATE 325 MG TABLET. PO SCH (08:06)
[2021-11-26] MEDS: POTASSIUM CHLORIDE 10 MEQ TABLET.ER. PO SCH ×2 (08:06→17:09)
[2021-11-26] MEDS: ALLOPURINOL 100 MG TABLET. PO SCH (08:06)
[2021-11-26] MEDS: CALCITRIOL 0.25 MCG CAPSULE PO SCH (08:37)
[2021-11-26] MEDS: INSULIN GLARGINE SYRINGE. SQ SCH ×2 (08:45→21:40)
[2021-11-26] MEDS ORDERED: BUMETANIDE 1 MG/4 ML VIAL. IVP SCH (09:00)
[2021-11-26] MEDS ORDERED: FUROSEMIDE 40 MG TABLET PO SCH (09:00)
--- NOTE | 2021-11-26 12:02 | NUR ---
pt able to get in shower and tolerated well, pt was not able to wash herself and required help from staff. physical therapy is at bedside.
--- NOTE | 2021-11-26 17:07 | PDOC ---
DATE OF SERVICE: DOS: DATE: 11/26/21 TIME: 17:04 SUBJECTIVE: Patient seen and examined OBJECTIVE: Problems: Problems Medical Problems: (1) CHF (congestive heart failure) Status: Acute (2) Elevated troponin Status: Acute (3) Sepsis Status: Acute (4) UTI (urinary tract infection) Status: Acute Vital Signs/I&O: Vital Signs Date Time Temp Pulse Resp B/P (MAP) Pulse Ox O2 Delivery O2 Flow Rate FiO2 11/26/21 12:00 Nasal Cannula 2.0 11/26/21 09:00 82 20 99/46 (63) 98 11/26/21 06:12 98.4 I & O 11/25/21 11/25/21 11/26/21 15:00 23:00 07:00 Intake Total 600 ml 300 ml 470 ml Output Total 450 ml 250 ml 525 ml Balance 150 ml 50 ml -55 ml Labs: Laboratory Tests Test 11/25/21 20:00 11/26/21 05:38 11/26/21 07:58 Glucose (Fingerstick) 269 mg/dL (70-99) H 153 mg/dL (70-99) H White Blood Count 6.8 x10^3/uL (4.0-11.0) Red Blood Count 3.49 x10^6/uL (3.50-5.40) L Hemoglobin 9.3 g/dL (12.0-15.5) L Hematocrit 29.8 % (36.0-47.0) L Mean Corpuscular Volume 85 fL (79-100) Mean Corpuscular Hemoglobin 27 pg (25-35) Mean Corpuscular Hemoglobin Concent 31 g/dL (31-37) Red Cell Distribution Width 17.7 % (11.5-14.5) H Platelet Count 198 x10^3/uL (140-400) Neutrophils (%) (Auto) 72 % (31-73) Lymphocytes (%) (Auto) 13 % (24-48) L Monocytes (%) (Auto) 11 % (0-9) H Eosinophils (%) (Auto) 4 % (0-3) H Basophils (%) (Auto) 0 % (0-3) Neutrophils # (Auto) 4.9 x10^3uL (1.8-7.7) Lymphocytes # (Auto) 0.9 x10^3/uL (1.0-4.8) L Monocytes # (Auto) 0.8 x10^3/uL (0.0-1.1) Eosinophils # (Auto) 0.2 x10^3/uL (0.0-0.7) Basophils # (Auto) 0.0 x10^3/uL (0.0-0.2) Sodium Level 144 mmol/L (136-145) Potassium Level 3.9 mmol/L (3.5-5.1) Chloride Level 101 mmol/L (98-107) Carbon Dioxide Level 36 mmol/L (21-32) H Anion Gap 7 (6-14) Blood Urea Nitrogen 43 mg/dL (7-20) H Creatinine 1.9 mg/dL (0.6-1.0) H Estimated GFR (Cockcroft-Gault) 24.9 BUN/Creatinine Ratio 23 (6-20) H Glucose Level 156 mg/dL (70-99) H Calcium Level 7.9 mg/dL (8.5-10.1) L Total Bilirubin 0.5 mg/dL (0.2-1.0) Aspartate Amino Transferase (AST) 63 U/L (15-37) H Alanine Aminotransferase (ALT) 407 U/L (14-59) H Alkaline Phosphatase 147 U/L (46-116) H GD-Ejz-G-Type Natriuretic Peptide 5480 pg/mL (0-449) H Total Protein 5.2 g/dL (6.4-8.2) L Albumin 2.4 g/dL (3.4-5.0) L Albumin/Globulin Ratio 0.9 (1.0-1.7) L Physical Exam: Chest: Mildly decreased breath sounds. CV: RRR Abdomen: Soft ASSESSMENT: Recurrent acute on chronic diastolic heart failure; echo 06/17 with normal LV systolic function. improved s/p diuresis, inotropic support with milrinone therapy. Good urine output. Will decrease diuretic and monitor. CAD s/p PCI/stents placement to LAD and RCA in the past and more recent PCI/JOSSELYN to distal RCA. The previously placed stents were patent. Hypertension; controlled Hyperlipidemia Atrial fibrillation, rate controlled. Continuing present treatment. Diabetes, II THELMA on CKD; improving. Monitor lab. Hypothyroidism: TSH 9.2. as per IM Transaminitis; improved Hypokalemia. monitoring lab. Justification of Admission: Justification of Admission: Justification of Admission Dx: Yes ABELINO CRUZ MD Nov 26, 2021 17:07
[2021-11-26] MEDS: RIVAROXABAN 15 MG TABLET. PO SCH (17:09)
[2021-11-26] MEDS: ATORVASTATIN CALCIUM 20 MG TABLET PO SCH (21:35)
--- NOTE | 2021-11-26 22:58 | PN ---
DATE: 11/26/2021 SUBJECTIVE: The patient is sitting comfortably in her chair in no apparent distress. On questioning her, she denied any chest pain and stated that she is generally feeling much better, feeling stronger. She did walk today to the doorway and back to her chair as she was taken in a wheelchair to the shower and have the shower. Her milrinone drip was discontinued. PHYSICAL EXAMINATION: GENERAL: When I examined her, she looked well and was clearly in no apparent respiratory distress. She was pale, but no jaundice, cyanosis, no thyromegaly, no jugular venous distention. No lower limb edema. VITAL SIGNS: Her heart rate was 82, blood pressure was 99/46, temperature was 98.4, respiratory rate 20, and oxygen saturation was 98% on 2 liters of oxygen. HEAD, EYES, EARS, NOSE, AND THROAT: Normocephalic, atraumatic. NECK: Supple. HEART: Showed normal first and second heart sounds. No gallop, rub, or murmur. CHEST: Shows central trachea, equal bilateral chest expansion, air entry, vesicular breath sounds with bilateral basal crepitation. I could not appreciate any rhonchi. ABDOMEN: Distended, soft, nontender. NEUROLOGIC: She was grossly intact. Her intake over the last 24 hours was 1040, output was 3080. LABORATORY DATA: As of this morning, her white cell count was 6800, hemoglobin 9, hematocrit 29, MCV 85 and platelet count of 198,000. Her chemistry showed a serum sodium 144, potassium 3.6, chloride 101, bicarbonate 36, anion gap of 7, BUN 43, creatinine was 1.9. Her estimated GFR was 25 mL per minute. Her glucose 156, calcium was 7.9. Total bilirubin is normal. AST, ALT, alkaline phosphatase are elevated, but trending down. Her beta natriuretic peptide was 5480 down from 15,181. Total protein 5.2, albumin was 2.4. Her prothrombin time was 16.8. INR of 1.6. ASSESSMENT: 1. Recurrent acute on chronic diastolic heart failure, improved, status post diuresis and anaerobic support with milrinone therapy that was discontinued today. 2. Coronary artery disease status post percutaneous coronary intervention with stent placement to the left anterior and right coronary arteries in the past. More recently, percutaneous coronary intervention with drug-eluting stent deployment to the distal right coronary arteries. Her previously placed stents were patent. 3. Hypertension. 4. Hyperlipidemia. 5. Atrial fibrillation, rate controlled. 6. Type 2 diabetes mellitus. 7. Acute on chronic kidney injury. Her creatinine came down from 2.4 to 1.7 and now it is rising a little bit to 1.9. 8. Hypothyroidism. The TSH is slightly elevated, so I did check her T3, T4, free T4. In fact, her total T4 and total T3 were normal indicating that she is in a state of compensated hypothyroidism. 9. Transaminitis, improving. 10. Hypokalemia, resolved. PLAN: To obviously continue with diuresing her. Continue to monitor her blood sugar and adjust insulin as needed. Continue with IV levofloxacin. Continue with rivaroxaban for stroke prevention. SHWETHA DR: Jeremiah TID: [id number]
[2021-11-27] VITALS (24 sets, daily range): BP systolic 115–150; BP diastolic 44–95
[2021-11-27] MEDS: LEVOTHYROXINE 50 MCG TABLET PO SCH (05:56)
--- NOTE | 2021-11-27 06:38 | NUR ---
Pt slept well most of the night. Tolerated BiPAP from around 2100 to 0430. Pt awake this am and pleasant and cooperative. Limited oral intake through the night to keep under her 1500 ml fluid restriction, pt managed well. Status otherwise unchanged.
[2021-11-27 06:44] LABS: BASO % 1 % (0-3); EOS # 0.3 x10^3/uL (0.0-0.7); EOS % 4 % (0-3); HEMATOCRIT 30.8 % (36.0-47.0); HEMOGLOBIN 9.6 g/dL (12.0-15.5); LYMPH % 15 % (24-48); MEAN CORPUSCULAR HEMOGLOBIN 27 pg (25-35); MEAN CORPUSCULAR HGB CONC 31 g/dL (31-37); MEAN CORPUSCULAR VOLUME 85 fL (79-100); MONO # 0.7 x10^3/uL (0.0-1.1); MONO % 11 % (0-9); NEUT # 4.7 x10^3uL (1.8-7.7); NEUT % 70 % (31-73); PLATELET COUNT 204 x10^3/uL (140-400); RED BLOOD COUNT 3.63 x10^6/uL (3.50-5.40); RED CELL DISTRIBUTION WIDTH 17.8 % (11.5-14.5); WHITE BLOOD COUNT 6.8 x10^3/uL (4.0-11.0)
[2021-11-27 06:55] LABS: ALBUMIN 2.4 g/dL (3.4-5.0); ALBUMIN/GLOBULIN RATIO 0.9 (1.0-1.7); CREATININE 1.8 mg/dL (0.6-1.0); GFR 26.6; POTASSIUM 3.7 mmol/L (3.5-5.1); TOTAL BILIRUBIN 0.5 mg/dL (0.2-1.0); TOTAL PROTEIN 5.2 g/dL (6.4-8.2)
[2021-11-27] MEDS: CLOPIDOGREL BISULFATE 75 MG TABLET PO SCH (08:39)
[2021-11-27] MEDS: METOPROLOL SUCC 24HR ER 25 MG TAB.ER.24H. PO SCH (08:39)
[2021-11-27] MEDS: ALLOPURINOL 100 MG TABLET. PO SCH (08:39)
[2021-11-27] MEDS: GABAPENTIN 100 MG CAPSULE. PO SCH ×2 (08:39→20:44)
[2021-11-27] MEDS: LACTOBACILLUS RHAMNOSUS GG 1 CAPSULE. PO SCH ×2 (08:39→20:44)
[2021-11-27] MEDS: POTASSIUM CHLORIDE 10 MEQ TABLET.ER. PO SCH ×2 (08:40→16:37)
[2021-11-27] MEDS: OXYBUTYNIN CHLORIDE 5 MG TABLET PO SCH ×3 (08:40→20:44)
[2021-11-27] MEDS: amLODIPine BESYLATE 5 MG TABLET PO SCH (08:40)
[2021-11-27] MEDS: CALCITRIOL 0.25 MCG CAPSULE PO SCH (08:40)
[2021-11-27] MEDS: FERROUS SULFATE 325 MG TABLET. PO SCH (08:40)
[2021-11-27] MEDS: PANTOPRAZOLE 40 MG TABLET. PO SCH (08:44)
[2021-11-27] MEDS: INSULIN GLARGINE SYRINGE. SQ SCH ×2 (08:53→20:44)
[2021-11-27] MEDS ORDERED: FUROSEMIDE 40 MG/4 ML VIAL IVP ONE (11:15)
--- NOTE | 2021-11-27 15:52 | PDOC ---
DATE OF SERVICE: DOS: DATE: 11/27/21 TIME: 15:51 SUBJECTIVE: Patient seen and examined. She is more comfortable today. OBJECTIVE: Problems: Problems Medical Problems: (1) CHF (congestive heart failure) Status: Acute (2) Elevated troponin Status: Acute (3) Sepsis Status: Acute (4) UTI (urinary tract infection) Status: Acute Vital Signs/I&O: Vital Signs Date Time Temp Pulse Resp B/P (MAP) Pulse Ox O2 Delivery O2 Flow Rate FiO2 11/27/21 15:00 98.0 82 29 120/60 (80) 95 Nasal Cannula 2.0 I & O 11/26/21 11/26/21 11/27/21 15:00 23:00 07:00 Intake Total 600 ml 200 ml 150 ml Output Total 700 ml 550 ml Balance 600 ml -500 ml -400 ml Labs: Laboratory Tests Test 11/26/21 17:16 11/26/21 20:15 11/27/21 05:46 11/27/21 07:41 Glucose (Fingerstick) 144 mg/dL (70-99) H 217 mg/dL (70-99) H 107 mg/dL (70-99) H White Blood Count 6.8 x10^3/uL (4.0-11.0) Red Blood Count 3.63 x10^6/uL (3.50-5.40) Hemoglobin 9.6 g/dL (12.0-15.5) L Hematocrit 30.8 % (36.0-47.0) L Mean Corpuscular Volume 85 fL (79-100) Mean Corpuscular Hemoglobin 27 pg (25-35) Mean Corpuscular Hemoglobin Concent 31 g/dL (31-37) Red Cell Distribution Width 17.8 % (11.5-14.5) H Platelet Count 204 x10^3/uL (140-400) Neutrophils (%) (Auto) 70 % (31-73) Lymphocytes (%) (Auto) 15 % (24-48) L Monocytes (%) (Auto) 11 % (0-9) H Eosinophils (%) (Auto) 4 % (0-3) H Basophils (%) (Auto) 1 % (0-3) Neutrophils # (Auto) 4.7 x10^3uL (1.8-7.7) Lymphocytes # (Auto) 1.0 x10^3/uL (1.0-4.8) Monocytes # (Auto) 0.7 x10^3/uL (0.0-1.1) Eosinophils # (Auto) 0.3 x10^3/uL (0.0-0.7) Basophils # (Auto) 0.0 x10^3/uL (0.0-0.2) Sodium Level 140 mmol/L (136-145) Potassium Level 3.7 mmol/L (3.5-5.1) Chloride Level 101 mmol/L (98-107) Carbon Dioxide Level 36 mmol/L (21-32) H Anion Gap 3 (6-14) L Blood Urea Nitrogen 36 mg/dL (7-20) H Creatinine 1.8 mg/dL (0.6-1.0) H Estimated GFR (Cockcroft-Gault) 26.6 BUN/Creatinine Ratio 20 (6-20) Glucose Level 112 mg/dL (70-99) H Calcium Level 8.0 mg/dL (8.5-10.1) L Total Bilirubin 0.5 mg/dL (0.2-1.0) Aspartate Amino Transferase (AST) 47 U/L (15-37) H Alanine Aminotransferase (ALT) 304 U/L (14-59) H Alkaline Phosphatase 142 U/L (46-116) H Total Protein 5.2 g/dL (6.4-8.2) L Albumin 2.4 g/dL (3.4-5.0) L Albumin/Globulin Ratio 0.9 (1.0-1.7) L Test 11/27/21 11:51 Glucose (Fingerstick) 172 mg/dL (70-99) H Physical Exam: Chest. Mildly decreased breath sounds. CV. Regular rate and rhythm. Abdomen. Soft. ASSESSMENT: Recurrent acute on chronic diastolic heart failure; echo 06/17 with normal LV systolic function. improved s/p diuresis, inotropic support with milrinone therapy. Continues to improve. We will continue present medications and monitor. CAD s/p PCI/stents placement to LAD and RCA in the past and more recent PCI/JOSSELYN to distal RCA. The previously placed stents were patent. Hypertension; controlled Hyperlipidemia Atrial fibrillation, rate controlled. Continuing present treatment. Diabetes, II THELMA on CKD; improving. Monitor lab. Morning BUN of 36 and creatinine of 1.8. Hypothyroidism: TSH 9.2. as per IM Transaminitis; improved Hypokalemia. monitoring lab. Justification of Admission: Justification of Admission: Justification of Admission Dx: Yes ABELINO CRUZ MD Nov 27, 2021 15:52
[2021-11-27] MEDS: POLYETHYLENE GLYCOL 3350 17 GM PACKET. PO PRN (16:37)
[2021-11-27] MEDS: RIVAROXABAN 15 MG TABLET. PO SCH (16:37)
--- NOTE | 2021-11-27 18:30 | NUR ---
PT WAS UP THROUGHOUT THE SHJIFT TODAY WITH ASSIST X 1-2 WITH WALKER TO TOILET, COMMODE AND CHAIR. PT ABLE TO ASSIST WITH ROLLS TO REPOSITION ONCE IN BED HOWEVER NOT ABLE TO PUSH OFF VERY WELL TO ASSIST WITH PULLING PT UP IN BED. PT DENIES PAIN THIS SHIFT AND DID REQUEST MIRALAX FOR STOOL SOFTENER. PT HAD MED BOWEL MOVEMENT THAT WAS HARD PRIOR TO MIRALAX.
--- NOTE | 2021-11-27 19:46 | PN ---
DATE: 11/27/2021 SUBJECTIVE: The patient is resting, slightly propped up, sleeping comfortably, in no apparent respiratory distress. On questioning her, denied any complaint, in particular denied any chest pain, shortness of breath, orthopnea or paroxysmal nocturnal dyspnea. PHYSICAL EXAMINATION: GENERAL: On examining her, she looked well, pale, not jaundiced, cyanosed, no lymphadenopathy, no thyromegaly, no jugular venous distention. No limb edema. VITAL SIGNS: Her heart rate was 75, blood pressure was 117/56, temperature was 98.2, respiratory rate was 20 and oxygen saturation was 95% on 2 liters of oxygen. HEAD, EYES, EARS, NOSE, AND THROAT: Normocephalic, atraumatic. NECK: Supple. HEART: Showed normal first and second heart sounds. No gallop, rub or murmur. CHEST: Showed central trachea, equal bilateral chest expansion, air entry, vesicular breath sounds with bilateral basal crepitation mostly posteriorly, more so on the right than left. ABDOMEN: Distended, soft, nontender. NEUROLOGIC: She was grossly intact. Her intake over the last 24 hours was 1100, output was 1225. LABORATORY DATA: As of this morning, her white cell count is 6800, hemoglobin was 9.6, hematocrit 31, MCV 85 and platelet count 204,000. Her serum sodium was 140, potassium 3.7, chloride 101, bicarbonate 36, anion gap of 3, BUN 36, creatinine 1.8. Estimated GFR was 27 mL per minute. Her glucose 112, calcium was 8. Total bilirubin 0.5. AST, ALT, alkaline phosphatase are elevated, but trending down. Her total protein was 5.2, albumin was 2.4. ASSESSMENT: 1. Recurrent acute on chronic diastolic congestive heart failure, improved, status post diuresis and inotropic support with milrinone therapy that was discontinued yesterday. 2. Coronary artery disease, status post percutaneous coronary intervention with stent deployment to the left anterior and right coronary arteries in the past or recently her percutaneous coronary intervention with drug-eluting stent deployment to the distal right coronary arteries. Her previously placed stents were all patent. 3. Hypertension. 4. Hyperlipidemia. 5. Atrial fibrillation, rate controlled. 6. Type 2 diabetes mellitus, seems to be reasonably controlled. 7. Acute on chronic kidney injury. Her creatinine has stabilized around 1.8. 8. Hypothyroidism. Her TSH is slightly elevated; however, her T3, T4, free T4 are all within normal range indicating that she is in a state of compensated hypothyroidism. 9. Transaminitis, improving. 10. Hypokalemia, resolving. 11. Urinary tract infection. Her blood cultures showed no growth after 5 days and her urine culture showed no growth. PLAN: To continue with all her current medications including furosemide. Continue to monitor blood sugar and adjust insulin as needed. Continue with physical and occupational therapy. LA DR: Jeremiah TID: [id number]
[2021-11-27] MEDS: DICLOFENAC SODIUM 1% TOPICAL GEL 100GM TUBE. TP SCH (20:43)
[2021-11-27] MEDS: ATORVASTATIN CALCIUM 20 MG TABLET PO SCH (20:44)
[2021-11-27] MEDS: NYSTATIN TOPICAL POWDER 15GM BOTTLE. TP SCH (20:44)
[2021-11-28] VITALS (22 sets, daily range): BP systolic 105–131; BP diastolic 43–88
--- NOTE | 2021-11-28 04:50 | NUR ---
Pt awake in bed at change of shift watching TV. Pt A&Ox4, very pleasant and cooperative with cares and assessments. Pt ate HS snack independently and took medications whole without difficulty. Pt reluctant but agreeable to wear BiPAP during night, with goal of 6 hours. Pt slept well most of the night, tolerated BiPAP from around 2205 to 0415, with only 3 small breaks. Pt extremely happy at 4am when able to take off BiPAP mask, stating "I made it...but take it off I am tired of it!." Pt placed back on 2L NC. Pt up 3 times to BSC x1 assist and walker to void, would void small amount in BSC but would also have moderate amount of urine soaked in brief. Limited oral intake throughout the night to keep under her 1500 ml fluid restriction, pt educated on importance. Pt hopeful for DC back to [facility] on Tuesday, aware of potential of needing assisted/skilled side.
[2021-11-28] MEDS: LEVOTHYROXINE 50 MCG TABLET PO SCH (05:41)
[2021-11-28] MEDS: levoFLOXacin 750 MG TABLET PO SCH (05:41)
[2021-11-28 06:45] LABS: BASO % 1 % (0-3); EOS # 0.4 x10^3/uL (0.0-0.7); EOS % 5 % (0-3); HEMATOCRIT 31.7 % (36.0-47.0); LYMPH # 1.1 x10^3/uL (1.0-4.8); LYMPH % 14 % (24-48); MEAN CORPUSCULAR HEMOGLOBIN 27 pg (25-35); MEAN CORPUSCULAR HGB CONC 32 g/dL (31-37); MEAN CORPUSCULAR VOLUME 86 fL (79-100); MONO # 0.8 x10^3/uL (0.0-1.1); MONO % 11 % (0-9); NEUT # 5.4 x10^3uL (1.8-7.7); NEUT % 70 % (31-73); PLATELET COUNT 238 x10^3/uL (140-400); RED BLOOD COUNT 3.71 x10^6/uL (3.50-5.40); RED CELL DISTRIBUTION WIDTH 17.4 % (11.5-14.5); WHITE BLOOD COUNT 7.7 x10^3/uL (4.0-11.0)
[2021-11-28] MEDS: POTASSIUM CHLORIDE 10 MEQ TABLET.ER. PO SCH ×2 (08:17→17:34)
[2021-11-28] MEDS: FERROUS SULFATE 325 MG TABLET. PO SCH (08:17)
[2021-11-28] MEDS: METOPROLOL SUCC 24HR ER 25 MG TAB.ER.24H. PO SCH (08:17)
[2021-11-28] MEDS: CLOPIDOGREL BISULFATE 75 MG TABLET PO SCH (08:17)
[2021-11-28] MEDS: LACTOBACILLUS RHAMNOSUS GG 1 CAPSULE. PO SCH ×2 (08:17→21:08)
[2021-11-28] MEDS: POLYETHYLENE GLYCOL 3350 17 GM PACKET. PO PRN (08:18)
[2021-11-28] MEDS: amLODIPine BESYLATE 5 MG TABLET PO SCH (08:18)
[2021-11-28] MEDS: PANTOPRAZOLE 40 MG TABLET. PO SCH (08:18)
[2021-11-28] MEDS: CALCITRIOL 0.25 MCG CAPSULE PO SCH (08:18)
[2021-11-28] MEDS: ALLOPURINOL 100 MG TABLET. PO SCH (08:18)
[2021-11-28] MEDS: OXYBUTYNIN CHLORIDE 5 MG TABLET PO SCH ×3 (08:18→21:08)
[2021-11-28] MEDS: GABAPENTIN 100 MG CAPSULE. PO SCH ×2 (08:18→21:07)
[2021-11-28] MEDS: DICLOFENAC SODIUM 1% TOPICAL GEL 100GM TUBE. TP SCH ×3 (08:19→21:09)
[2021-11-28] MEDS: NYSTATIN TOPICAL POWDER 15GM BOTTLE. TP SCH ×2 (08:19→21:09)
[2021-11-28] MEDS: FUROSEMIDE 40 MG TABLET PO SCH ×2 (08:20→21:08)
[2021-11-28] MEDS: INSULIN GLARGINE SYRINGE. SQ SCH ×2 (09:18→21:10)
[2021-11-28 10:26] LABS: CREATININE 1.8 mg/dL (0.6-1.0); GFR 26.6
[2021-11-28 10:27] LABS: CALCIUM 7.9 mg/dL (8.5-10.1); MAGNESIUM 1.9 mg/dL (1.8-2.4)
--- NOTE | 2021-11-28 11:09 | NUR ---
pT STILL REQUIRING 27 L TOTAL. 15 L NRB AND 12 HFNC. PT WILL TAKE MASK OFF TO TALK OR EAT AND DRINK AND IS ABLE TO RECOVER FAIRLY QUICKLY. SPOKE WITH PT IN REGARDS TO TREATMENT PLAN AND GOALS. PTS APPETITE STILL DIMINISHED. URINE OUTPUT GOOD. [facility] CATH IN PLACE Addendum: 11/28/21 at 1120 by TIARRA WOODWARD RN WRONG PT DOCUMENTED ON.
--- NOTE | 2021-11-28 11:22 | NUR ---
Patient resting quietly at shift change. Pt is Alert and oriented x 4,however emotional this morning in regards to wanting to not be at the hospital anymore. pt states that she is ready to go home. Sat with pt and gave positive encouragement. Patient was up in chair this morning for breakfast and able to transfer from bed to chair to commode and back to chair with assist x 1 and walker. Patient was wanting to get exercise today and we worked on range of motion as well as getting up walking in room with assist when able.
[2021-11-28] MEDS: RIVAROXABAN 15 MG TABLET. PO SCH (17:34)
[2021-11-28] MEDS: ATORVASTATIN CALCIUM 20 MG TABLET PO SCH (21:07)
--- NOTE | 2021-11-28 21:40 | PN ---
DATE: 11/28/2021 SUBJECTIVE: The patient is sitting comfortably in her chair in no apparent respiratory distress. She denied any chest pain and shortness of breath. She is unhappy about taking the catheter out as she has to go to the bathroom multiple times and she takes longer time to empty her bladder. PHYSICAL EXAMINATION: GENERAL: When I examined her, however, she looked well and was clearly in no apparent respiratory distress. She was pale, but not jaundiced, cyanosed or thyromegaly. No jugular venous distention. No limb edema. VITAL SIGNS: Her heart rate was 77, blood pressure was 111/51, temperature was 98.2, respiratory rate 25 and her oxygen saturation was 94% on 2 liters of oxygen. HEAD, EYES, EARS, NOSE, AND THROAT: Normocephalic, atraumatic. NECK: Supple. HEART: Normal first and second heart sounds, no gallop or murmur. CHEST: Shows central trachea, equal bilateral expansion, air entry, vesicular breath sounds with bilateral basal crepitation posteriorly. I could not appreciate any rhonchi. ABDOMEN: Distended, soft, nontender. NEUROLOGIC: She was grossly intact. Her intake over the last 24 hours was 1300, output was 1250. LABORATORY DATA: As of this morning, her white cell count was 7700, hemoglobin 10, hematocrit 32, MCV 86 and platelet count 238,000. Her serum sodium was 145, potassium 4, chloride 104, bicarbonate 26, anion gap of 9, BUN 34, creatinine 1.8. Estimated GFR was 26 mL per minute. Her glucose 142, calcium was 7.9, magnesium was 1.9. ASSESSMENT: 1. Recurrent acute on chronic diastolic congestive heart failure, improved, status post diuresis and inotropic support with milrinone therapy that was discontinued 2 days ago. 2. Coronary artery disease status post percutaneous coronary intervention with stent deployment to the left anterior and right coronary arteries in the past, and more recently, she had had percutaneous coronary intervention with drug-eluting stent deployment to the distal right coronary arteries. Her previously placed stents are all patent. 3. Hypertension. 4. Hyperlipidemia. 5. Atrial fibrillation, rate controlled. 6. Acute on chronic hypoxic respiratory failure. 7. Acute on chronic kidney injury. Her creatinine has stabilized around 1.8 mg/dL. 8. Hypothyroidism. Her TSH is slightly elevated; however, T3, T4, and free T4 are all within normal range indicating that she is in a state of compensated hypothyroidism. 9. Transaminitis, improving. 10. Hypokalemia, resolved. 11. Urinary tract infection. Her blood culture showed no growth after 5 days, and her urine culture showed also no growth so that her antibiotics were discontinued. PLAN: To continue with all her current medications including furosemide. Continue to monitor her blood sugar. Adjust insulin as needed. Continue with PT, OT. She probably to be admitted to [facility] for rehabilitation before she goes to independent living facility. MATILDE DR: Jeremiah TID: [id number]
--- NOTE | 2021-11-28 22:24 | NUR ---
Pt is calm, pleasant, and cooperative with cares this shift. Pt has gotten up to the BSC twice so far; the first she voided 150ml but the second time she did not void at all. Pt complains of urgency since removal of dockery catheter. Explained to pt that this is a side effect and will reside with time, also discussed bladder training to help; pt verbalized understanding. JAYLA hose removed when pt got in bed for the night. HS blood sugar was 203, night dose of Lantus given. Pt took PM medications without difficulty. RT Oralia, applied BiPAP at 2128. Pt currently resting comfortably. Will continue to monitor.
[2021-11-29] VITALS (18 sets, daily range): BP systolic 98–148; BP diastolic 41–66
--- NOTE | 2021-11-29 06:00 | NUR ---
Assumed care of pt at 2330. Pt asleep in bed with BiPAP on. Pt slept well most of the night, tolerated BiPAP from around 2127 to 449, with only few small breaks. Pt placed on 2L NC when BiPAP removed and during day. Pt up frequently to BSC x1 assist and walker to void, would void small amount in BSC but would also have moderate amount of urine soaked in brief. Pt hopeful to work with PT/OT today, stating "I need to get moving."
[2021-11-29] MEDS: LEVOTHYROXINE 50 MCG TABLET PO SCH (06:04)
[2021-11-29 07:36] LABS: CALCIUM 8.3 mg/dL (8.5-10.1); CREATININE 1.9 mg/dL (0.6-1.0); GFR 24.9; POTASSIUM 3.6 mmol/L (3.5-5.1)
[2021-11-29] MEDS: PANTOPRAZOLE 40 MG TABLET. PO SCH (08:30)
[2021-11-29] MEDS: POTASSIUM CHLORIDE 10 MEQ TABLET.ER. PO SCH ×2 (08:30→16:29)
[2021-11-29] MEDS: OXYBUTYNIN CHLORIDE 5 MG TABLET PO SCH ×3 (08:30→21:20)
[2021-11-29] MEDS: CLOPIDOGREL BISULFATE 75 MG TABLET PO SCH (08:30)
[2021-11-29] MEDS: METOPROLOL SUCC 24HR ER 25 MG TAB.ER.24H. PO SCH (08:31)
[2021-11-29] MEDS: ALLOPURINOL 100 MG TABLET. PO SCH (08:33)
[2021-11-29] MEDS: GABAPENTIN 100 MG CAPSULE. PO SCH ×2 (08:33→21:20)
[2021-11-29] MEDS: LACTOBACILLUS RHAMNOSUS GG 1 CAPSULE. PO SCH ×2 (08:33→21:20)
[2021-11-29] MEDS: FUROSEMIDE 40 MG TABLET PO SCH (08:33)
[2021-11-29] MEDS: amLODIPine BESYLATE 5 MG TABLET PO SCH (08:34)
[2021-11-29] MEDS: CALCITRIOL 0.25 MCG CAPSULE PO SCH (08:34)
[2021-11-29] MEDS: FERROUS SULFATE 325 MG TABLET. PO SCH (08:34)
[2021-11-29] MEDS: INSULIN GLARGINE SYRINGE. SQ SCH ×2 (08:35→21:21)
[2021-11-29] MEDS: NYSTATIN TOPICAL POWDER 15GM BOTTLE. TP SCH ×2 (08:36→21:20)
[2021-11-29] MEDS: DICLOFENAC SODIUM 1% TOPICAL GEL 100GM TUBE. TP SCH ×2 (08:37→21:20)
--- NOTE | 2021-11-29 15:20 | NUR ---
Shift nursing note: Patient alert and oriented x4, pleasant, cooperative. Patient able to feed herself independently. Patient able to use bedside commode with one assist. Patient has mixed bladder continence/incontinence. Patient has a session with PT today, ambulated 300 feet while on supplement oxygen at 2 LPM via NC. Will continue to monitor patient.
[2021-11-29] MEDS: RIVAROXABAN 15 MG TABLET. PO SCH (16:29)
--- NOTE | 2021-11-29 18:50 | PN ---
DATE: 11/29/2021 SUBJECTIVE: The patient is sitting comfortably in her recliner, in no apparent respiratory distress. On questioning her, she denied any complaint. PHYSICAL EXAMINATION: GENERAL: When I examined her, she looked well and was clearly in no apparent respiratory distress, pale, not jaundiced or cyanosed, no lymphadenopathy, no thyromegaly, no jugular venous distention. No lower limb edema. VITAL SIGNS: Her heart rate was 68, blood pressure was 118/47, temperature was 98, respiratory rate 24, and oxygen saturation was 97% on 2 liters of oxygen. HEAD, EYES, EARS, NOSE, AND THROAT: Normocephalic, atraumatic. NECK: Supple. HEART: Showed normal first and second heart sounds, no gallop or murmur. CHEST: Clear to auscultation, no crepitation or rhonchi. ABDOMEN: Distended, soft, nontender. NEUROLOGIC: She is awake, alert, responding appropriately. All cranial nerves intact. She moves extremities without difficulty. She is now able to ambulate to bedside commode and has been able to urinate without difficulty. Her intake was 1500, output was 2200. LABORATORY DATA: As of yesterday, her white cell count was 7700, hemoglobin 10, hematocrit 32, MCV 86, and platelet count 238,000. Her serum sodium was 139, potassium 3.6, chloride 100, bicarbonate 35, anion gap of 4, BUN 31, creatinine 1.9. Estimated GFR was 25 mL per minute. Her glucose 113, calcium was 8.3. ASSESSMENT: 1. Recurrent oczlf-rz-[id number] diastolic congestive heart failure, improved. She is status post diuresis and anaerobic support with milrinone therapy that was discontinued 3 days ago. 2. Coronary artery disease, status post percutaneous coronary intervention with stent deployment to the left anterior and right coronary arteries in the past. More recently, she has had percutaneous coronary intervention with drug-eluting stent deployment to the distal right coronary artery. Her previously placed stents are all patent. 3. Hypertension. 4. Hyperlipidemia. 5. Atrial fibrillation, rate controlled. 6. Rmeiu-uf-xqsrfbp hypoxic respiratory failure. She is now maintaining her oxygen saturation at 95-97% on 2 liters of oxygen. 7. Oymnq-vp-izqgguo kidney injury. Her creatinine has stabilized around 1.8 mg/dL. 8. Hypothyroidism. Her TSH is slightly elevated; however, T3, T4, free T4 are all within normal range, indicating that she is in a state of compensated hypothyroidism. 9. Transaminitis, improving. 10. Hypokalemia, resolved. 11. Urinary tract infection. Her blood cultures showed no growth after 5 days; however, her urine cultures -- showed also no growth so that her antibiotics were discontinued. PLAN: To continue with current medications including furosemide. Continue to monitor blood sugar and adjust insulin as needed. Continue PT, OT. We will consult our lining caser tomorrow to see if she can be admitted to go to a [facility]p facility at [place] before she goes to her own independent living facility. LOBITO DR: Jeremiah TID: [id number]
[2021-11-29] MEDS: ATORVASTATIN CALCIUM 20 MG TABLET PO SCH (21:20)
[2021-11-30] VITALS (15 sets, daily range): BP systolic 102–146; BP diastolic 46–67
[2021-11-30] MEDS: levoFLOXacin 750 MG TABLET PO SCH (06:24)
[2021-11-30] MEDS: LEVOTHYROXINE 50 MCG TABLET PO SCH (06:24)
--- NOTE | 2021-11-30 06:30 | NUR ---
Pt slept well throughout the night. Only tolerated BIPAP for about 3hrs last night and returned to 2L NC. Pt up to chair this am and states she is feeling better. Denies any complaints of pain or discomfort. Status otherwise unchanged.
[2021-11-30] MEDS: LACTOBACILLUS RHAMNOSUS GG 1 CAPSULE. PO SCH (08:00)
[2021-11-30] MEDS: OXYBUTYNIN CHLORIDE 5 MG TABLET PO SCH ×2 (08:00→16:21)
[2021-11-30] MEDS: METOPROLOL SUCC 24HR ER 25 MG TAB.ER.24H. PO SCH (08:00)
[2021-11-30] MEDS: ALLOPURINOL 100 MG TABLET. PO SCH (08:00)
[2021-11-30] MEDS: FERROUS SULFATE 325 MG TABLET. PO SCH (08:00)
[2021-11-30] MEDS: amLODIPine BESYLATE 5 MG TABLET PO SCH (08:02)
[2021-11-30] MEDS: POTASSIUM CHLORIDE 10 MEQ TABLET.ER. PO SCH (08:02)
[2021-11-30] MEDS: CLOPIDOGREL BISULFATE 75 MG TABLET PO SCH (08:02)
[2021-11-30] MEDS: CALCITRIOL 0.25 MCG CAPSULE PO SCH (08:02)
[2021-11-30] MEDS: PANTOPRAZOLE 40 MG TABLET. PO SCH (08:02)
[2021-11-30] MEDS: GABAPENTIN 100 MG CAPSULE. PO SCH (08:02)
[2021-11-30] MEDS: DICLOFENAC SODIUM 1% TOPICAL GEL 100GM TUBE. TP SCH (08:03)
[2021-11-30] MEDS: NYSTATIN TOPICAL POWDER 15GM BOTTLE. TP SCH (08:03)
--- NOTE | 2021-11-30 08:08 | PDOC ---
CARDIO Progress Notes Date & Time Date of Service DATE: 11/30/21 TIME: 08:06 Time of Evaluation 07:50 Subjective Notes Breathing improved. No SOA Vitals Vitals Vital Signs Date Time Temp Pulse Resp B/P (MAP) Pulse Ox O2 Delivery O2 Flow Rate FiO2 11/30/21 08:02 67 113/54 11/30/21 07:00 16 98 Nasal Cannula 2.0 11/30/21 06:00 98.0 Weight Weight [ ] Input and Output I.O. Intake and Output 11/30/21 07:00 Intake Total 1450 ml Output Total 1200 ml Balance 250 ml Intake Oral 1450 ml Output Urine Total 1200 ml # Voids 2 # Bowel Movements 1 Laboratory Labs Laboratory Tests Test 11/28/21 11:54 11/28/21 17:02 11/28/21 21:06 11/29/21 07:00 Glucose (Fingerstick) 191 mg/dL (70-99) 235 mg/dL (70-99) 203 mg/dL (70-99) Sodium Level 139 mmol/L (136-145) Potassium Level 3.6 mmol/L (3.5-5.1) Chloride Level 100 mmol/L (98-107) Carbon Dioxide Level 35 mmol/L (21-32) Anion Gap 4 (6-14) Blood Urea Nitrogen 31 mg/dL (7-20) Creatinine 1.9 mg/dL (0.6-1.0) Estimated GFR (Cockcroft-Gault) 24.9 Glucose Level 113 mg/dL (70-99) Calcium Level 8.3 mg/dL (8.5-10.1) Test 11/29/21 20:41 Glucose (Fingerstick) 273 mg/dL (70-99) Microbiology Micro Microbiology 11/20/21 Urine Culture - Final, Complete 11/20/21 Blood Culture - Final, Complete NO GROWTH AFTER 5 DAYS... Physical Exams HEENT: Neck Supple W Full Motion Chest: Symmetric Lungs: Other (diminished bases) Heart: irregularly irregular (AFIB, rate controlled ) Abdomen: Soft N/T Extremities: Other (trace bilateral LE edema ) Neurology: alert, oriented, follow commands Assessment Assessment 1. Recurrent acute on chronic diastolic heart failure; echo 06/17 with normal LV systolic function. improved s/p diuresis, inotropic support with milrinone therapy. Negative 2L overall last 24hrs 2. CAD s/p PCI/stents placement to LAD and RCA in the past and more recent PCI/JOSSELYN to distal RCA. The previously placed stents were patent. 3. Hypertension; now controlled 4. Hyperlipidemia 5. Atrial fibrillation, rate controlled. amiodarone discontinued as patient has remains in AFIB 6. Diabetes, II 7. THELMA on CKD; improved. Cr stable 8. Hypothyroidism: TSH 9.2. at per IM 9. Transaminitis; improved Recommendations Lasix therapy Repeat labs Standing weight Titrate off O2 as able Continue metoprolol for rate control PT/OT Secondary prevention Supportive care Plans for discharge to [facility] ELEANOR HUDSON APRN Nov 30, 2021 08:08
[2021-11-30] MEDS ORDERED: FUROSEMIDE 40 MG TABLET PO SCH (09:00)
[2021-11-30 09:06] LABS: CALCIUM 8.3 mg/dL (8.5-10.1); CREATININE 1.8 mg/dL (0.6-1.0); GFR 26.6; POTASSIUM 3.9 mmol/L (3.5-5.1)
[2021-11-30] MEDS: INSULIN GLARGINE SYRINGE. SQ SCH (09:53)
--- NOTE | 2021-11-30 11:00 | DISCH ---
DISCHARGE ORDERS DISCHARGE DATE: Nov 30, 2021 FINAL DIAGNOSIS acute on chronic diastolic chf acute on chronic kidney injury CONDITION AT DISCHARGE: Stable Code Status: DNR/DNI SNF STAY <30 DAYS: Yes POST DISCHARGE ORDERS: ACTIVITY ORDERS: No restrictions, Activity as tolerated WEIGHT BEARING STATUS: No restrictions DIET AFTER DISCHARGE: ADA DISCHARGE MEDICATIONS: Home Meds Active Scripts Amlodipine Besylate (NORVASC) 5 Mg Tablet, 1 TAB PO DAILY for blood pressure for 30 Days, #30 TAB 2 Refills Prov:ELEANOR HUDSON ESTUARDO 06/18/21 Reported Medications Rivaroxaban (XARELTO) 15 Mg Tablet, 1 TAB PO DAILY for a fib for 30 Days, #30 TAB 0 Refills 11/20/21 Insulin Degludec (Tresiba) 100 Unit/1 Ml Vial, 6 UNIT SQ BID for DM, EACH 06/10/21 Potassium Chloride (KLOR-CON 10) 10 Meq Tablet.er, 1 TAB PO BID for HYPOKALEMIA for 30 Days, #60 TAB 0 Refills 06/10/21 Pantoprazole Sodium (PANTOPRAZOLE SODIUM) 40 Mg Tablet.dr, 1 TAB PO DAILY for GERD, #30 TAB 3 Refills 06/10/21 Oxybutynin Chloride (OXYBUTYNIN CHLORIDE ER) 15 Mg Tab.er.24, 1 TAB PO BID for OVERACTIVE BLADDER, #90 TAB 1 Refill 06/10/21 Metoprolol Succinate (METOPROLOL SUCCINATE ( XL )) 100 Mg Tab.er.24h, 1 TAB PO DAILY for HTN, #30 TAB 5 Refills 06/10/21 Levothyroxine Sodium (Levothyroxine) 50 Mcg Capsule, 50 MCG PO DAILY06 for HYPOTHYROIDISM, CAP 06/10/21 Gabapentin (GABAPENTIN ) 100 Mg Capsule, 100 MG PO BID for NEUROGENIC PAIN, CAP 06/10/21 Ferrous Sulfate (FERROUS SULFATE) 325 Mg Tablet, 1 TAB PO DAILY for IRON DEFICIENCY, #30 TAB 3 Refills 06/10/21 Clopidogrel Bisulfate (CLOPIDOGREL) 75 Mg Tablet, 1 TAB PO HS for A-FIB, #90 TAB 1 Refill 06/10/21 Calcitriol (CALCITRIOL) 0.25 Mcg Capsule, 1 CAP PO DAILY for HYPOCALCEMIA, #30 CAP 5 Refills 06/10/21 Atorvastatin Calcium (ATORVASTATIN CALCIUM) 20 Mg Tablet, 20 MG PO QHS for FOR CHOLESTEROL, #30 TAB 0 Refills 06/10/21 Amiodarone Hcl (AMIODARONE HCL) 200 Mg Tablet, 1 TAB PO DAILY for A-FIB, #90 TAB 1 Refill 06/10/21 Allopurinol (ALLOPURINOL) 100 Mg Tablet, 1 TAB PO DAILY for GOUT, #30 TAB 5 Refills 06/10/21 Discontinued Scripts Furosemide (LASIX) 40 Mg Tablet, 1 TAB PO QODAY for fluid retention for 30 Days, #30 TAB 2 Refills Prov:ELEANOR HUDSON APRN 06/18/21 MAICOL MARES MD Nov 30, 2021 10:59
--- NOTE | 2021-12-18 19:06 | DS ---
DATE OF DISCHARGE: 11/30/2021 HOSPITAL COURSE: The patient is an 86-year-old female patient who was admitted on 11/20 with altered mental status and syncope. She apparently was discharged from Emergency Department after evaluation by Dr. Orourke. Patient was discharged home, but returned with hypotension and decreased mental status. She required a nonrebreather mask. She was very weak and unable to stand or assist with movement. The patient has a history of outpatient heart catheterization at [facility] the day before admission by Dr. Fernando and was discharged home with similar episode of decompensation, mental status change and congestive heart failure exacerbation. The patient spent the last 24 hours in the Emergency Department getting diuresis and treatment for UTI and possible urosepsis. There were no rooms available for admission to ICU or telemetry during her previous stay 2 hours ago. She basically was eventually admitted with acute on chronic congestive heart failure, paroxysmal atrial fibrillation, known coronary artery disease with recent cardiac catheterization and stent deployment. She is also known to have hypothyroidism, type 2 diabetes mellitus, generalized debility and chronic anticoagulation. She was started on milrinone drip and was followed by the Cardiology team. Eventually, her milrinone drip was discontinued. She was treated with IV Lasix twice a day and followed closely by the Cardiology team after which she was switched to oral Lasix and she was seen by the physical and occupational therapist and a decision was made to discharge her to [facility] to continue the process of rehabilitation. PHYSICAL EXAMINATION: GENERAL: On the day of discharge, the patient looked well and was clearly in no apparent respiratory distress. She was somewhat pale, not jaundiced, cyanosed. No lymphadenopathy, no thyromegaly, no jugular venous distention. No limb edema. VITAL SIGNS: Her heart rate was 60, blood pressure is 124/54, her temperature was 98.2, and her respiratory rate was 16 and oxygen saturation was 91% on room air. HEAD, EYES, EARS, NOSE, AND THROAT: Showed normocephalic, atraumatic. NECK: Supple. HEART: Showed normal first and second heart sounds. No gallop, rub or murmur. CHEST: Clear to auscultation, no crepitation or rhonchi. ABDOMEN: Distended, soft, nontender. NEUROLOGIC: She was grossly intact. Her intake was 1450, output was 1200 over the last 24 hours. LABORATORY DATA: On the day of discharge, showed a white cell count 7700, hemoglobin 10, hematocrit 32, MCV 86 and platelet count of 238,000. Her serum sodium was 143, potassium 3.9, chloride 101, bicarbonate 35, anion gap of 7, BUN 32, creatinine 1.8. Estimated GFR was 26 mL per minute. Her glucose 162, calcium was 8.3. Her beta natriuretic peptide was 6289. Her urinalysis essentially unremarkable and her coronavirus by PCR was negative. DISCHARGE MEDICATIONS: She was discharged to [facility] to continue on her allopurinol 100 mg once a day, amiodarone 200 mg once a day, amlodipine besylate 5 mg once a day, atorvastatin calcium 20 mg at bedtime, calcitriol 0.25 mcg once a day, Plavix 75 mg once a day, ferrous sulfate 325 mg daily, gabapentin 100 mg twice a day. She is on Tresiba 6 units twice a day, levothyroxine sodium 50 mcg once a day, metoprolol succinate 100 mg daily, oxybutynin chloride 15 mg twice a day, Protonix 40 mg once a day, potassium chloride 10 mEq twice a day. She was also on Xarelto 15 mg daily. FINAL DISCHARGE DIAGNOSES: 1. Recurrent acute on chronic diastolic congestive heart failure, improved. She is status post diuresis and inotropic support with milrinone therapy that was discontinued 3 days prior to discharge. 2. Coronary artery disease status post percutaneous coronary intervention with stent deployment to the left anterior and right coronary arteries in the past. More recently, she has had percutaneous coronary intervention with drug-eluting stent deployment to the distal right coronary arteries. Her previously placed stents are all patent. 3. Hypertension. 4. Hyperlipidemia. 5. Atrial fibrillation, rate controlled. 6. Acute on chronic hypoxic respiratory failure. She is now maintaining her oxygen saturation at 95-91% on 2 liters of oxygen. 7. Hypothyroidism. Her TSH is slightly elevated; however, T3, T4 and free T4 are within normal range indicating that she is in a state of compensated hypothyroidism. 8. Transaminitis, improving. 9. Hypokalemia, has resolved. 10. Urinary tract infection. Her blood cultures showed no growth after 5 days; however, her urine culture has also showed no growth so that her antibiotics were discontinued. WILLIE/EKT DR: WILLIE/jie TID: [id number]
== END 2021-11-30 15:00 | DRG 280 ==
LOC: ER 17:40 → ER HOLD 11-21 13:42 → ICU 11-24 13:42
PROVIDERS: ADMIT Hospitalist; ATTEND Hospitalist
PROC: 5A0945A Assistance with Respiratory Ventilation, 24-96 Consecutive Hours, High Flow/Velocity Cannula (ICD-10-PCS; 2021-11-21)
PROC: 5A09357 Assistance with Respiratory Ventilation, Less than 24 Consecutive Hours, Continuous Positive Airway Pressure (ICD-10-PCS; 2021-11-21)
PROC: 5A09357 Assistance with Respiratory Ventilation, Less than 24 Consecutive Hours, Continuous Positive Airway Pressure (ICD-10-PCS; 2021-11-23)
PROC: 5A09357 Assistance with Respiratory Ventilation, Less than 24 Consecutive Hours, Continuous Positive Airway Pressure (ICD-10-PCS; 2021-11-24)
PROC: 5A09357 Assistance with Respiratory Ventilation, Less than 24 Consecutive Hours, Continuous Positive Airway Pressure (ICD-10-PCS; 2021-11-24)
PROC: 5A09357 Assistance with Respiratory Ventilation, Less than 24 Consecutive Hours, Continuous Positive Airway Pressure (ICD-10-PCS; 2021-11-25)
PROC: 5A09357 Assistance with Respiratory Ventilation, Less than 24 Consecutive Hours, Continuous Positive Airway Pressure (ICD-10-PCS; 2021-11-26)
PROC: 5A09357 Assistance with Respiratory Ventilation, Less than 24 Consecutive Hours, Continuous Positive Airway Pressure (ICD-10-PCS; 2021-11-28)
PROC: 5A09357 Assistance with Respiratory Ventilation, Less than 24 Consecutive Hours, Continuous Positive Airway Pressure (ICD-10-PCS; principal; 2021-11-29)
DX: I13.0 Hypertensive heart and chronic kidney disease with heart failure and stage 1 through stage 4 chronic kidney disease, or unspecified chronic kidney disease (principal); I50.33 Acute on chronic diastolic (congestive) heart failure; I21.A1 Myocardial infarction type 2; J96.21 Acute and chronic respiratory failure with hypoxia; N17.9 Acute kidney failure, unspecified; N39.0 Urinary tract infection, site not specified; D64.9 Anemia, unspecified; E87.5 Hyperkalemia; Z20.822 Contact with and (suspected) exposure to COVID-19; E03.9 Hypothyroidism, unspecified; E04.1 Nontoxic single thyroid nodule; E11.22 Type 2 diabetes mellitus with diabetic chronic kidney disease; E78.5 Hyperlipidemia, unspecified; E87.6 Hypokalemia; I25.10 Atherosclerotic heart disease of native coronary artery without angina pectoris; I48.0 Paroxysmal atrial fibrillation; J44.9 Chronic obstructive pulmonary disease, unspecified; N18.9 Chronic kidney disease, unspecified; Z79.01 Long term (current) use of anticoagulants; Z86.73 Personal history of transient ischemic attack (TIA), and cerebral infarction without residual deficits; Z95.5 Presence of coronary angioplasty implant and graft; F41.9 Anxiety disorder, unspecified; M19.90 Unspecified osteoarthritis, unspecified site; R74.01 Elevation of levels of liver transaminase levels; Z66 Do not resuscitate
CPT/HCPCS: 36415; 36600; 70450; 70496; 71045; 71275; 72125; 80048; 80053; 80076; 80307; 81001; 82550; 82803; 82947; 83690; 83735; 83880; 84436; 84439; 84443; 84480; 84484; 85025; 85379; 85610; 85730; 87040; 87077; 87086; 87186; 87205; 87426; 93005; 94618; 94660; 96365; 96366; 96367; 96368; 96372; 96375; 96376; 99292; J0696; J0744; J1815; J1940; J1956; J2260; J2405; J3490; Q9967; U0003; 97110; 97530; 99285-25; 99291-25

== ENCOUNTER → 2022-01-08 | Outpatient (CLI) | payer MEDICARE, BC ==
[2021-11-30 14:00] VITALS: BP 124/54
[~2022-01-08] MED LIST changes: +IOHEXOL 300 MG/ML 75 ML VIAL. ONE
[2022-01-08] MEDS: IOHEXOL 300 MG/ML 75 ML VIAL. IV ONE (08:35)
--- NOTE | 2022-01-08 11:18 | RAD ---
CTA chest with contrast dated 01/08/2022. COMPARISON: 11/20/2021. CLINICAL INDICATION: Follow-up abnormal CT TECHNIQUE: Contiguous axial imaging the chest performed after the intravenous demonstration of 60 cc of Omnipaqu e 300. One or more of the following individualized dose reduction techniques were utilized for this examinat ion: 1. Automated exposure control 2. Adjustment of the mA and/or kV according to patient size 3. Use of iterative reconstruction technique FINDINGS: Heart size is mildly enlarged. Tiny pericardial effusion. Coronary artery calcifications. There are m ildly enlarged lymph nodes, similar to slightly improved. A prevascular lymph node on the left measur es 11 mm short axis versus 12 mm previously. Improvement in bilateral hilar lymphadenopathy. There is heterogeneous enlargement of the thyroid gland, unchanged. There is a moderate size right pleural effusion, similar to prior study. Consolidation of the right l ower lobe and right middle lobe, similar slightly improved. Interval improvement in consolidation and pleural effusion on the left. Mild diffuse bronchial wall thickening. No new infiltrate or pneumotho rax. Images of the upper abdomen show calcified stones in the gallbladder. No acute bony abnormality. Mild multilevel spondylosis. IMPRESSION: 1. Interval improvement in bibasilar airspace disease and pleural effusions. There is a small to mode rate residual pleural effusion on the right with right basilar atelectasis. 2. Mild interval improvement in mediastinal lymphadenopathy. 3. Cardiomegaly with tiny pericardial effusion and extensive coronary artery calcifications. Electronically signed by: Efraín Ken MD (01/08/2022 11:15 AM) [facility]
== END ==
LOC: CT 07:50
PROVIDERS: ATTEND Family Medicine
DX: R91.8 Other nonspecific abnormal finding of lung field (principal); J90 Pleural effusion, not elsewhere classified; I31.3 Pericardial effusion (noninflammatory); I25.10 Atherosclerotic heart disease of native coronary artery without angina pectoris; I51.7 Cardiomegaly; R59.0 Localized enlarged lymph nodes; E04.9 Nontoxic goiter, unspecified; K80.20 Calculus of gallbladder without cholecystitis without obstruction; M47.814 Spondylosis without myelopathy or radiculopathy, thoracic region
CPT/HCPCS: 71260; Q9967